=== PATIENT | male | born 1950 | race Caucasian/White ===

== ENCOUNTER 2021-07-06 21:34 | Emergency (ER) | payer MEDICARE, OTHER, SELFPAY ==
[2021-07-06 21:43] VITALS: BP 187/97; PULSE 72; RESP 18; TEMP 36.7; O2SAT 99; BMI 32.1
[2021-07-06 22:13] LABS: Basophils % 0.5 %; Eosinophils # 0.3 10^3/uL (0.0-0.8); Hematocrit 37.1 % (42.0-52.0); Hemoglobin 12.4 g/dL (11.7-16.6); Lymphocytes # 1.9 10^3/uL (0.8-4.8); Lymphocytes % 24.4 %; Mean Corpuscular HGB Conc 33.4 g/dL (30.0-36.0); Mean Corpuscular Volume 86.9 fl (80-94); Mean Platelet Volume 10.9 fL (7.4-10.4); Monocytes # 0.7 10^3/uL (0.2-0.9); Monocytes % 8.5 %; Neutrophils # 4.79 10^3/uL (1.8-7.7); Neutrophils % 62.3 %; Nucleated Red Blood Cells % 0 %; Platelet Count 210 10^3/cmm (130-400); Red Blood Count 4.27 10^6/uL (4.1-5.3); Red Cell Distribution Width 13.2 % (12.1-15.1); White Blood Count 7.7 10^3/uL (4.0-10.0)
[2021-07-06 22:29] LABS: INR 2.26 (0.8-1.2)
[2021-07-06 22:34] LABS: Alanine Aminotransferase 13 U/L (0-41); Albumin Level 4.1 g/dL (3.5-5.2); Alkaline Phosphatase 60 IU/L (40-130); Anion Gap 17.5 (5-19); Aspartate Amino Transferase 13 U/L (0-40); Blood Urea Nitrogen 22 mg/dL (8-23); Calcium 8.9 mg/dL (8.5-10.5); Carbon Dioxide 23 mmol/L (22-29); Chloride 104 mmol/L (98-107); Globulin 2.1 g/dL (1.3-4.6); Glucose 138 mg/dL (65-115); Osmolality Calculated 298 mOsm/kg (285-295); Potassium 3.5 mmol/L (3.5-5.1); Sodium 141 mmol/L (136-145); Total Bilirubin 0.6 mg/dL (0.15-1.2); Total Protein 6.2 g/dL (6.6-8.7)
--- NOTE | 2021-07-06 22:37 | ECG_ITS ---
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 Measurements Intervals [place] Rate: 62 P: 63 IN: 149 QRS: 61 QRSD: 79 T: 68 QT: 396 QTc: 405 Interpretive Statements SINUS RHYTHM Compared to ECG 06/19/2019 20:16:09 No significant changes Electronically Signed On 07-08-2021 0:12:02 DRAG SEINER by Sheri Rico M.D. [email or web address]
--- NOTE | 2021-07-06 22:38 | ED_ITS ---
HPI - GI Bleed General: Chief complaint: GI Bleed Stated complaint: Bleeding out of the bowels Time Seen by Provider: 07/06/21 21:55 Source: patient Mode of arrival: ambulatory Limitations: no limitations History of Present Illness: HPI Narrative: 71-year-old male has a history of A. fib is on Coumadin he also history of diabetes states that roughly an hour or 2 ago he has noticed he is having large amount of bright red blood in his stools he states he had 2 large bloody bowel movements and has just been having oozing blood into his underwear since then. States he had some slight lightheadedness especially standing no history of bleeding in his stools in the past denies any vomiting or diarrhea denies any abdominal pain denies any fevers. Associated symptoms: Denies chills, easy bruising, fever(s), headache(s) or rash Review of Systems Const: Denies: fever(s), chills, body aches or change in appetite Eyes: Denies: blurry vision or eye discomfort ENMT: Denies: throat pain or dental pain Card: Denies: chest pain Resp: Denies: dyspnea GI: Reports: hematochezia : Denies: dysuria Musc: Denies: neck pain or back pain Skin/Breast: Denies: rash Neuro: Denies: headache(s) Psych: Denies: depression Joshua/Lymph: Denies: easy bruising All/Imm: Denies: urticaria PFS ED PFSH: Medical History CAD, multiple vessel Diabetes mellitus History of non-ST elevation myocardial infarction (NSTEMI) History of stroke HTN (hypertension) Hyperlipidemia Paroxysmal atrial fibrillation Family History Brother Heart disease Social History Smoking and tobacco status: former smoker Physical Exam Const: COMMON NORMALS: no acute distress, patient oriented x3 and healthy appearing HENMT: COMMON NORMALS: normocephalic and atraumatic HEAD & SCALP: normocephalic and atraumatic Eye: COMMON NORMALS: Equal, round and reactive pupils present and EOMs intact bilaterally PUPIL: Yes Equal, round and reactive pupils present Neck/C-Spine: COMMON NORMALS: full ROM and supple Chest: COMMONS NORMALS: normal inspection of the chest and normal palpation of entire chest wall Resp: COMMON NORMALS: normal respiratory effort, No retractions, No use of accessory muscles and clear to auscultation bilaterally AUSCULTATION: clear to auscultation bilaterally Cardio: COMMON NORMALS: regular rate, regular rhythm and No murmurs present (Cardio) RATE: regular rate RHYTHM: regular rhythm GI: COMMON NORMALS: Normal to inspection, nondistended, normoactive bowel sounds present, Soft to palpation, non-tender and no masses PALPATION: Yes Soft to palpation OTHER: Bright red blood in patient's underwear with some clots Hemoccult positive Extremity: COMMON NORMALS: normal to inspection and full ROM Neuro: COMMON NORMALS: patient oriented x3, moves all extremities and no focal motor deficits Psych: COMMON NORMALS: mental status grossly normal, Normal thought process present and cooperative THOUGHT PROCESS: Normal thought process present Skin: COMMON NORMALS: no rashes or lesions noted and no wounds GENERAL SKIN EXAM: no rashes or lesions noted Course Vital Signs: Vital signs: Vital Signs Temperature 98.3 F 07/07/21 00:40 Pulse Rate 66 07/07/21 00:40 Respiratory Rate 17 07/07/21 00:40 Blood Pressure 166/80 07/07/21 00:40 Pulse Oximetry 97 07/07/21 00:40 MDM - GI Bleed MDM Narrative: Medical decision making narrative: Patient presents here with lower GI bleeding patient's hemoglobin did drop 2 points in an hour so we will transfuse him 2 units as he is getting near syncopal with standing as well we will give him FFP to reverse his Coumadin patient is not in A. fib here he is in normal sinus rhythm will transfer to [place] due to no bed availability I spoke to physician there and will transfer there. Lab Data: Labs: Lab Results 07/06/21 07/06/21 07/06/21 22:03 22:03 22:03 WBC 7.7 10^3/uL 10^3/ uL (4.0-10.0) RBC 4.27 10^6/uL 10^6 /uL (4.1-5.3) Hgb 12.4 g/dL g/dL (11.7-16.6) Hct 37.1 % L % (42.0-52.0) MCV 86.9 fl fl (80-94) MCH 29.0 pg pg (28.0-34.0) MCHC 33.4 g/dL g/dL (30.0-36.0) RDW 13.2 % % (12.1-15.1) Plt Count 210 10^3/cmm 10^3 /cmm (130-400) MPV 10.9 fL H fL (7.4-10.4) Neut % (Auto) 62.3 % % Lymph % (Auto) 24.4 % % [place] % (Auto) 8.5 % % Eos % (Auto) 4.0 % % Baso % (Auto) 0.5 % % Neut # (Auto) 4.79 10^3/uL 10^3 /uL (1.8-7.7) Lymph # (Auto) 1.9 10^3/uL 10^3/ uL (0.8-4.8) [place] # (Auto) 0.7 10^3/uL 10^3/ uL (0.2-0.9) Eos # (Auto) 0.3 10^3/uL 10^3/ uL (0.0-0.8) Baso # (Auto) 0.0 10^3/uL 10^3/ uL (0.0-0.1) Nucleated RBC % (a uto) 0 % % Nucleated RBCs # 0.0 /100WBC /100W BC PT 25.40 SECONDS H S ECONDS (12.1-14.9) INR 2.26 H (0.8-1.2) Sodium 141 mmol/L mmol/L (136-145) Potassium 3.5 mmol/L mmol/L (3.5-5.1) Chloride 104 mmol/L mmol/L (98-107) Carbon Dioxide 23 mmol/L mmol/L (22-29) Anion Gap 17.5 (5-19) BUN 22 mg/dL mg/dL (8-23) Creatinine 1.3 mg/dL H mg/dL (0.7-1.2) GFR Calculation Not Reportable Glucose 138 mg/dL H mg/dL (65-115) POC Glucose Calculated Osmolal ity 298 mOsm/kg H mOs m/kg (285-295) Calcium 8.9 mg/dL mg/dL (8.5-10.5) Total Bilirubin 0.6 mg/dL mg/dL (0.15-1.2) AST 13 U/L U/L (0-40) ALT 13 U/L U/L (0-41) Alkaline Phosphata se 60 IU/L IU/L (40-130) Total Protein 6.2 g/dL L g/dL (6.6-8.7) Albumin 4.1 g/dL g/dL (3.5-5.2) Globulin 2.1 g/dL g/dL (1.3-4.6) Blood Type Rho(D) Type Antibody Screen Crossmatch 07/06/21 07/06/21 07/06/21 22:03 22:35 23:10 WBC RBC Hgb 10.7 g/dL L g/dL (11.7-16.6) Hct 31.9 % L % (42.0-52.0) MCV MCH MCHC RDW Plt Count MPV Neut % (Auto) Lymph % (Auto) [place] % (Auto) Eos % (Auto) Baso % (Auto) Neut # (Auto) Lymph # (Auto) [place] # (Auto) Eos # (Auto) Baso # (Auto) Nucleated RBC % (a uto) Nucleated RBCs # PT INR Sodium Potassium Chloride Carbon Dioxide Anion Gap BUN Creatinine GFR Calculation Glucose POC Glucose 182 mg/dL H mg/dL (70-110) Calculated Osmolal ity Calcium Total Bilirubin AST ALT Alkaline Phosphata se Total Protein Albumin Globulin Blood Type A Positive Rho(D) Type Positive Antibody Screen Negative Crossmatch See Detail Imaging Data^: CT Abd/Pel: Attestation: I personally reviewed and interpreted this imaging study as follows: Radiologist's impression: [address] [place] [address] CT Scan Report Signed Patient: Mac Pacheco Unit #: [id number] : 1950 Age/Sex: 71 / M ADM Date: 07/06/21 Loc: ER Room/Bed: Attending Dr: Ordering Provider/Ordering MD: Abhijit Morales MD Date of Service: 07/06/21 Procedure(s): CT abdomen pelvis w con* [id number] Accession Number(s): [id number] Report Number: [id number] PROCEDURE INFORMATION: Exam: CT Abdomen And Pelvis With Contrast Exam date and time: 07/06/2021 10:37 PM Age: 71 years old Clinical indication: Other: Rectal bleeding; Additional info: Gi bleed TECHNIQUE: Imaging protocol: Computed tomography of the abdomen and pelvis with contrast. Radiation optimization: All CT scans at this facility use at least one of these dose optimization techniques: automated exposure control; mA and/or kV adjustment per patient size (includes targeted exams where dose is matched to clinical indication); or iterative reconstruction. Contrast material: VISI 320; Contrast volume: 95 ml; Contrast route: INTRAVENOUS (IV); COMPARISON: [place] [facility] [place] [id number] 03/15/2016 9:45 AM RADIATION DOSE METRICS: Total DLP (mGy-cm): 1850.23 FINDINGS: Lungs: 4 mm circumscribed noncalcified anterior left lower lobe pulmonary nodule. Lung bases otherwise clear. Liver: Normal. No mass. Gallbladder and bile ducts: Cholelithiasis. No gallbladder wall thickening. Pancreas: Normal. No ductal dilation. Spleen: Normal. No splenomegaly. Adrenal glands: Normal. No mass. Kidneys and ureters: Several small bilateral simple renal cortical cysts are present. No dedicated imaging follow-up is recommended for this finding. Negative for hydronephrosis. No calcified renal stones. Stomach and bowel: The rectosigmoid colon is moderately distended with fluid. No focal mass or inflammatory bowel wall thickening is identified. Scattered diverticulosis coli is present. Negative for bowel obstruction. Negative for bowel perforation. There is a small area of intraluminal hyperattenuating material in the distal descending left colon on axial image 66, sagittal image 23. This is of uncertain significance without the benefit of available noncontrast imaging. Appendix: Normal appendix. Intraperitoneal space: Unremarkable. No free air. No significant fluid collection. Vasculature: Scattered atherosclerosis. Negative for abdominal aortic aneurysm. No acute vascular occlusion. Lymph nodes: Unremarkable. No enlarged lymph nodes. Urinary bladder: Unremarkable as visualized. Reproductive: Mild severity prostatomegaly. Bones/joints: Unremarkable. No acute fracture. Soft tissues: Unremarkable. CT/CT abdomen pelvis w con* [id number] IMPRESSION: 1. Small area of layering hyperattenuating material in the lumen of the descending left colon. Cannot exclude active gastrointestinal bleeding in this area, although the finding is nonspecific without multiphasic imaging available. 2. No acute inflammatory disease process in abdomen or pelvis seen otherwise. 3. Small left lower lobe pulmonary nodule. 4. For patients at low risk (minimal or absent history of smoking and of other known risk factors), no routine follow-up is indicated. For patients at high risk (history of smoking or of other known risk factors), consider optional CT Chest at 12 months. (Reference: Prudence) COMMENTS: Consistent with the [employer]'s Incidental Findings Committee white paper (J Am Vero Radiol 2018): Any incidental renal lesion less than 1 cm or classified as too small to characterize, or any incidental cystic renal lesion characterized as simple-appearing, is likely benign. No follow-up imaging is recommended for these lesions per consensus recommendations based on imaging criteria. REFERENCES: Prudence Beyer, et al. Guidelines for Management of Incidental Pulmonary Nodules Detected on CT Images: From the Fleischner Society 2017. Radiology. 2017;284(1):228-243. Dictated By: Jose Cruz Reis Signed By: Jose Cruz Reis Signed Date/Time: 07/07/21 0015 EKG Data^: EKG 1: Attestation: I personally reviewed and interpreted this EKG as follows: EKG interpretation date: 07/06/21 EKG interpretation time: 22:38 Interpretation: nsr hr [address] or twave abnormalities qrs 79 qtc 402 Critical Care Time Critical Care Time: Critical Care Time: Yes Total Critical Care Time: 36 Attestation: The high probability of a clinically significant, sudden or life threatening deterioration of the patient's [] system(s) required my full and direct attention, intervention and personal management. The critical care time is as shown. This time is in addition to time spent performing any reported procedures but includes the following: [x] Data and vital sign review and interpretation [x] Patient assessment, examination and intervention [x] Documentation [x] Medication orders and management Discharge Plan Discharge Patient Disposition: Xfer Short-Term Hosp Clinical Impression: Lower gastrointestinal hemorrhage Condition: Stable Referrals: Joo Lugo DO [Primary Care Provider] - Coding Level of Care Code ED Hydrology Technician for Chg Fwd Exam Comprehensive
[2021-07-06 22:43] VITALS: BP 159/115; PULSE 67; RESP 14; O2SAT 99
[2021-07-06 22:43] LABS: Glucose Point of Care 182 mg/dL (70-110)
[2021-07-06] MEDS: iodixanol 320 mg/mL 100mL Btl IV (23:04)
[2021-07-06 23:12] VITALS: BP 168/81; PULSE 62
[2021-07-06 23:13] VITALS: BP 125/87; BP 159/87; PULSE 66; PULSE 72
[2021-07-06 23:14] LABS: Hematocrit 31.9 % (42.0-52.0); Hemoglobin 10.7 g/dL (11.7-16.6)
[2021-07-06 23:18] VITALS: BP 153/79
[2021-07-07] MEDS: phytonadione (ADULT) 10 MG in sodium chloride 0.9% 50 ML 153 MG IV (00:17)
[2021-07-07 00:30] VITALS: BP 160/78; PULSE 62; RESP 13; TEMP 36.8; O2SAT 97
[2021-07-07 00:40] VITALS: BP 166/80; PULSE 66; RESP 17; TEMP 36.8; O2SAT 97
[2021-07-07 01:46] LABS: SARS Covid-2 Antigen Negative (Negative)
[2021-07-07 02:38] VITALS: BP 146/102; PULSE 65; RESP 14; TEMP 37; O2SAT 97
[2021-07-07 02:46] VITALS: BP 171/88; PULSE 66; RESP 18; TEMP 37; O2SAT 97
[2021-07-07 02:54] VITALS: BP 171/88; PULSE 64; RESP 10; TEMP 36.5; O2SAT 97
[2021-07-07 03:03] VITALS: BP 171/88; PULSE 64; RESP 10; TEMP 36.5; O2SAT 95
--- NOTE | 2021-07-07 03:06 | PC.NURSE ---
pt blood tansfusion continued along with ffp's when being transported by ems.
== END 2021-07-07 03:09 | disposition short-term general hospital (02) ==
PROVIDERS: Emergency Provider Emergency Medicine; PCP Family Medicine
DX: K92.2 Gastrointestinal hemorrhage, unspecified (principal); I25.10 Atherosclerotic heart disease of native coronary artery without angina pectoris; E11.9 Type 2 diabetes mellitus without complications; I25.2 Old myocardial infarction; Z86.73 Personal history of transient ischemic attack (TIA), and cerebral infarction without residual deficits; I10 Essential (primary) hypertension; E78.5 Hyperlipidemia, unspecified; Z87.891 Personal history of nicotine dependence; Z20.822 Contact with and (suspected) exposure to COVID-19
CPT/HCPCS: 36416; 36430; 74177; 80053; 82962; 85014; 85018; 85025; 85610; 86850; 86900; 86920; 87426; 93005; 96365; 99285; 99291; J3430; P9016; P9017; Q9967

== ENCOUNTER → 2021-12-28 11:50 | Outpatient (BNVA) | payer MEDICARE, OTHER, SELFPAY | PROVIDERS: PCP Family Medicine; Visit Provider Family Medicine | DX: Z88.8 Allergy status to other drugs, medicaments and biological substances (principal); I48.91 Unspecified atrial fibrillation | CPT/HCPCS: 85610 ==

== ENCOUNTER → 2022-03-01 08:56 | Outpatient (BNVA) | payer MEDICARE, OTHER, SELFPAY | PROVIDERS: PCP Family Medicine; Visit Provider Family Medicine | DX: I10 Essential (primary) hypertension (principal); I25.10 Atherosclerotic heart disease of native coronary artery without angina pectoris; I48.0 Paroxysmal atrial fibrillation | CPT/HCPCS: 85610 ==

== ENCOUNTER → 2022-03-10 14:52 | Outpatient (BNVA) | payer MEDICARE, OTHER, SELFPAY | PROVIDERS: PCP Family Medicine; Visit Provider Internal Medicine | DX: I25.10 Atherosclerotic heart disease of native coronary artery without angina pectoris (principal); I10 Essential (primary) hypertension; I48.0 Paroxysmal atrial fibrillation; Z79.01 Long term (current) use of anticoagulants; Z87.891 Personal history of nicotine dependence | CPT/HCPCS: 99214 ==

== ENCOUNTER → 2022-05-12 08:54 | Outpatient (BNVA) | payer MEDICARE, OTHER, SELFPAY | PROVIDERS: PCP Family Medicine; Visit Provider Family Medicine | DX: I10 Essential (primary) hypertension (principal); I25.10 Atherosclerotic heart disease of native coronary artery without angina pectoris; I48.0 Paroxysmal atrial fibrillation; E11.9 Type 2 diabetes mellitus without complications; Z79.01 Long term (current) use of anticoagulants | CPT/HCPCS: 83036; 85610 ==

== ENCOUNTER 2022-05-15 13:27 | Emergency (ER) | payer MEDICARE, OTHER, SELFPAY ==
[2022-05-15] VITALS (7 sets, daily range): BP systolic 138–175; BP diastolic 75–89; PULSE 69–81; RESP 15–18; TEMP 36.4; O2SAT 96–99; BMI 32.1
--- NOTE | 2022-05-15 14:54 | W.ED.WEAKNES ---
HPI - Weakness General: Chief complaint: Weakness Stated complaint: States he has afib, weakness Time Seen by Provider: 05/15/22 14:47 History of Present Illness: Mr. Pacheco is a 72-year-old gentleman with history of paroxysmal A. fib, CAD, hypertension, diabetes presenting to the emergency department for generalized illness. He reports the past week or week and a half feeling unsteady and generalized malaise in the mornings and notes higher than normal blood pressure associated with rapid heart rate. Denies associated chest pain or shortness of breath. Intensity symptoms is moderate. Course has persisted. No other specific changes in health, exacerbating, or alleviating factors identified. Onset (ago): week(s) Duration: intermittent Location: generalized Severity: moderate Exacerbating factors: morning Review of Systems General: Reports: 10 or more systems reviewed and unremarkable except in HPI and below PFSH ED PFSH: Medical History CAD, multiple vessel Diabetes mellitus History of non-ST elevation myocardial infarction (NSTEMI) History of stroke HTN (hypertension) Hyperlipidemia Paroxysmal atrial fibrillation Family History Brother Heart disease Social History Smoking and tobacco status: former smoker Alcohol intake: never Physical Exam Const: COMMON NORMALS: alert GENERAL APPEARANCE: cooperative and well developed HENMT: COMMON NORMALS: normocephalic and atraumatic HEAD & SCALP: normocephalic and atraumatic Eye: COMMON NORMALS: conjunctivae normal CONJUNCTIVA: Yes conjunctivae normal SCLERA: sclerae normal Neck/C-Spine: COMMON NORMALS: supple GENERAL: Yes trachea midline Resp: COMMON NORMALS: clear to auscultation bilaterally EFFORT & INSPECTION: Yes able to speak in complete sentences AUSCULTATION: clear to auscultation bilaterally Cardio: COMMON NORMALS: regular rate and regular rhythm RATE: regular rate RHYTHM: regular rhythm GI: COMMON NORMALS: Soft to palpation PALPATION: Yes Soft to palpation and No Tenderness to palpation present (GI) Extremity: GENERAL: Yes normal exam except as noted and No edema Neuro: COMMON NORMALS: moves all extremities SENSORIUM/ORIENTATION: Yes alert and No Orientation impaired Psych: COMMON NORMALS: mental status grossly normal and Normal thought process present THOUGHT PROCESS: Normal thought process present Course Vital Signs: Vital signs: Vital Signs Temperature 97.5 F L 05/15/22 13:34 Pulse Rate 76 05/15/22 19:18 Respiratory Rate 16 05/15/22 19:18 Blood Pressure 175/75 05/15/22 19:18 Pulse Oximetry 97 05/15/22 19:18 Oxygen Delivery Me thod 05/15/22 13:34 MDM - Weakness Medical Decision Making 72-year-old gentleman presenting with variable heart rate and uncontrolled blood pressure worse in the mornings. Patient has complex past medical history however no recent changes in medications and reports compliance with medication regimen. He is nontoxic on exam and vitals at this time are satisfactory. EKG notable for sinus rhythm with nonspecific ST-T segment abnormalities. No STEMI. Laboratory studies without evidence of endorgan dysfunction or obvious cause of arrhythmia. Bilirubin is elevated of uncertain etiology. Patient has no right upper quadrant tenderness or biliary colic complaint however in absence of explanation further imaging as noted below. Electrolyte replenishment ordered for optimization of arrhythmia prevention. CT head negative for acute intracranial pathology. Chest x-ray with no lobar consolidation or pneumothorax. Cardiomegaly is present. Abdominal ultrasound with cholelithiasis but no evidence of cholecystitis, common bile duct is normal in diameter. Discussed case with cardiology. Plan to increase patient's morning carvedilol and have close outpatient follow-up. No indication for hospitalization at this time. The results of ED evaluation were discussed with the patient including prescriptions and/or symptomatic cares (if applicable) including appropriate and responsible use, followup plan, and return precautions. The patient verbalized understanding and felt safe for discharge. Medical Records I reviewed the patient's medical records. Lab Data I reviewed the patient's lab results. : 05/15/22 15:07 05/15/22 15:07 Radiology Impressions Chest X-Ray 05/15/22 15:00 IMPRESSION: 1. Cardiomegaly. 2. Right lower lobe atelectasis. Head CT 05/15/22 15:00 IMPRESSION: Negative for intracranial hemorrhage or mass effect. Abdomen Ultrasound 05/15/22 16:56 IMPRESSION: 1. Cholelithiasis. 2. Borderline gallbladder wall thickening. Lack of gallbladder luminal distention makes acute cholecystitis unlikely. Laboratory Results WBC 6.3 10^3/uL (4.0-10.0) 05/15/22 15:07 RBC 4.69 10^6/uL (4.1-5.3) 05/15/22 15:07 Hgb 13.9 g/dL (11.7-16.6) 05/15/22 15:07 Hct 40.7 % (42.0-52.0) L 05/15/22 15:07 MCV 86.8 fl (80-94) 05/15/22 15:07 MCH 29.6 pg (28.0-34.0) 05/15/22 15:07 MCHC 34.2 g/dL (30.0-36.0) 05/15/22 15:07 RDW 13.6 % (12.1-15.1) 05/15/22 15:07 Plt Count 178 10^3/cmm (130-400) 05/15/22 15:07 MPV 11.3 fL (7.4-10.4) H 05/15/22 15:07 Neut % (Auto) 66.3 % 05/15/22 15:07 Lymph % (Auto) 18.5 % 05/15/22 15:07 [place] % (Auto) 11.1 % 05/15/22 15:07 Eos % (Auto) 3.6 % 05/15/22 15:07 Baso % (Auto) 0.3 % 05/15/22 15:07 Neut # (Auto) 4.19 10^3/uL (1.8-7.7) 05/15/22 15:07 Lymph # (Auto) 1.2 10^3/uL (0.8-4.8) 05/15/22 15:07 [place] # (Auto) 0.7 10^3/uL (0.2-0.9) 05/15/22 15:07 Eos # (Auto) 0.2 10^3/uL (0.0-0.8) 05/15/22 15:07 Baso # (Auto) 0.0 10^3/uL (0.0-0.1) 05/15/22 15:07 Nucleated RBC % (auto) 0 % 05/15/22 15:07 Nucleated RBCs # 0.0 /100WBC 05/15/22 15:07 Sodium 138 mmol/L (136-145) 05/15/22 15:07 Potassium 3.5 mmol/L (3.5-5.1) 05/15/22 15:07 Chloride 102 mmol/L (98-107) 05/15/22 15:07 Carbon Dioxide 25 mmol/L (22-29) 05/15/22 15:07 Anion Gap 14.5 (5-19) 05/15/22 15:07 BUN 23 mg/dL (8-23) 05/15/22 15:07 Creatinine 1.1 mg/dL (0.7-1.2) 05/15/22 15:07 GFR Calculation Not Reportable 05/15/22 15:07 Glucose 166 mg/dL (65-115) H 05/15/22 15:07 POC Glucose 161 mg/dL (70-110) H 05/15/22 15:51 Calculated Osmolality 293 mOsm/kg (285-295) 05/15/22 15:07 Calcium 9.8 mg/dL (8.5-10.5) 05/15/22 15:07 Magnesium 1.9 mg/dL (1.7-2.3) 05/15/22 15:07 Total Bilirubin 1.6 mg/dL (0.15-1.2) H 05/15/22 15:07 AST 12 U/L (0-40) 05/15/22 15:07 ALT 13 U/L (0-41) 05/15/22 15:07 Alkaline Phosphatase 63 U/L (40-130) 05/15/22 15:07 Troponin T Baseline 31 ng/L (0-15) H 05/15/22 15:07 Troponin T 120 Minute 28.60 ng/L (0-15) H 05/15/22 17:38 Delta Troponin T -2.40 ABS# (0-10) L 05/15/22 17:38 NT-Pro-B Natriuret Pep 999 pg/mL (0-125) H 05/15/22 15:07 Total Protein 6.5 g/dL (6.6-8.7) L 05/15/22 15:07 Albumin 3.9 g/dL (3.5-5.2) 05/15/22 15:07 Globulin 2.6 g/dL (1.3-4.6) 05/15/22 15:07 Lipase 37 U/L (13-60) 05/15/22 15:07 TSH 1.26 uIU/mL (0.27-4.20) 05/15/22 15:07 Urine Color Yellow (Yellow) 05/15/22 18:24 Urine Appearance Clear (CLEAR) 05/15/22 18:24 Urine pH 5 (5-7) 05/15/22 18:24 Ur Specific [place] 1.020 (1.005-1.030) 05/15/22 18:24 Urine Protein Neg (Negative) 05/15/22 18:24 Urine Glucose (UA) Norm (Normal) 05/15/22 18:24 Urine Ketones 1+ (Negative) H 05/15/22 18:24 Urine Blood Neg (Negative) 05/15/22 18:24 Urine Nitrate Negative (Negative) 05/15/22 18:24 Urine Bilirubin Neg (Negative) 05/15/22 18:24 Urine Urobilinogen Neg mg/dL (Negative) 05/15/22 18:24 Ur Leukocyte Esterase Negative (Negative) 05/15/22 18:24 Discharge Plan Discharge Patient Disposition: Home Clinical Impression: Malaise, HTN (hypertension), Paroxysmal atrial fibrillation Condition: Stable Prescriptions: New carvedilol 6.25 mg tablet 6.25 mg PO QAM Qty: 30 0RF Rx Instructions: must administer with a meal/food No Action metformin 500 mg tablet 1,000 mg PO BID warfarin 1 mg tablet 2 mg PO DAILY diltiazem HCl [Cardizem] 60 mg tablet 60 mg PO DAILY PRN (Reason: Afib) Qty: 90 3RF atorvastatin 20 mg tablet 20 mg PO DAILY senna 8.6 mg capsule 8.6 mg PO DAILY PRN (Reason: Constipation) docusate sodium 100 mg capsule 100 mg PO DAILY PRN (Reason: Constipation) [id number]-[id number]-Zn-Cu 1 tab PO DAILY triamcinolone acetonide 0.5 % cream 1 applic topical BID Qty: 15 3RF amlodipine 10 mg tablet 10 mg PO DAILY atenolol-chlorthalidone 50-25 mg tablet 1 tab PO DAILY carvedilol 12.5 mg tablet 12.5 mg PO BID Qty: 60 6RF Rx Instructions: must administer with a meal/food losartan 100 mg tablet 150 mg PO DIRECTED Qty: 135 3RF Rx Instructions: Take 150mg (1 tab) Am and 75mg (0.5 tab) in PM nateglinide 120 mg tablet 120 mg PO TID Qty: 270 3RF Rx Instructions: give before meal(s) hydrochlorothiazide 12.5 mg tablet 12.5 mg PO BID Discharge Orders: Discharge ED (Routine); Ordered 05/15/22 Ordered By: Nahum Lundy Referrals: Joo Lugo, DO [Primary Care Provider] - Discharge Diet: Usual diet Discharge Activity: Increase activity as tolerated Activity Restrictions/Additional Instructions: Thank you for visiting the emergency department. You were seen and evaluated for generalized symptoms associated with high blood pressure and heart rate in the mornings. The exact cause of the symptoms is unclear though does not appear to need hospitalization at this time. 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 Please change your carvedilol dose from 12.5 mg twice daily to 18.25 mg in the morning total and 12.5 mg in the evening. I will write you a prescription for additional 6.25 mg tablets of carvedilol if this is easier than splitting pills. Dosage would be one 12.5 mg tablet and one 6.25 mg tablet in the morning and one 12.5 mg tablet in the evening. Return to the emergency department for anything that you are concerned about and feel needs emergency department evaluation. Coding Level of Care Code ED Chemical Process Analyst for Samantha Chu Exam Comprehensive
--- NOTE | 2022-05-15 15:00 | XRR_ITS ---
PROCEDURE INFORMATION: Exam: XR Chest Exam date and time: 05/15/2022 3:15 PM Age: 72 years old Clinical indication: Other: Weakness; Additional info: Afib TECHNIQUE: Imaging protocol: Radiologic exam of the chest. Views: 1 view. COMPARISON: CR XR chest 1V [id number] 08/08/2017 12:57 PM FINDINGS: Lungs: Right lower lobe atelectasis. Pleural spaces: Unremarkable. No pleural effusion. No pneumothorax. Heart/Mediastinum: Cardiomegaly. Bones/joints: Unremarkable. XR/XR chest 1V portable [id number] IMPRESSION: 1. Cardiomegaly. 2. Right lower lobe atelectasis.
--- NOTE | 2022-05-15 15:00 | CTR_ITS ---
PROCEDURE INFORMATION: Exam: CT Head Without Contrast Exam date and time: 05/15/2022 3:18 PM Age: 72 years old Clinical indication: Altered mental status/memory loss; Additional info: HX stroke, gait difficulty TECHNIQUE: Imaging protocol: Computed tomography of the head without contrast. Radiation optimization: All CT scans at this facility use at least one of these dose optimization techniques: automated exposure control; mA and/or kV adjustment per patient size (includes targeted exams where dose is matched to clinical indication); or iterative reconstruction. COMPARISON: CT Head wo IV contrast* [id number] 06/19/2019 8:05 PM RADIATION DOSE METRICS: Total DLP (mGy-cm): 1126.09 FINDINGS: Brain: Mild diffuse white matter disease likely reflecting chronic microvascular ischemic changes. Cerebral ventricles: No ventriculomegaly. Paranasal sinuses: Paranasal sinus opacifications. Mastoid air cells: Visualized mastoid air cells are well aerated. Bones/joints: Unremarkable. No acute fracture. Soft tissues: Unremarkable. CT/CT head wo con* [id number] IMPRESSION: Negative for intracranial hemorrhage or mass effect.
--- NOTE | 2022-05-15 15:01 | ECG_ITS ---
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 Measurements Intervals [place] Rate: 74 P: 55 [place]: 149 QRS: 69 QRSD: 82 T: 66 QT: 375 QTc: 417 Interpretive Statements SINUS RHYTHM NONSPECIFIC ST & T-WAVE ABNORMALITY Compared to ECG 07/06/2021 22:38:17 T-wave abnormality now present Electronically Signed On 05-17-2022 23:02:08 CDT by Tamiko Gonzalez M.D. [id number]
[2022-05-15 15:19] LABS: Basophils % 0.3 %; Eosinophils # 0.2 10^3/uL (0.0-0.8); Eosinophils % 3.6 %; Hematocrit 40.7 % (42.0-52.0); Hemoglobin 13.9 g/dL (11.7-16.6); Lymphocytes # 1.2 10^3/uL (0.8-4.8); Lymphocytes % 18.5 %; Mean Corpuscular HGB Conc 34.2 g/dL (30.0-36.0); Mean Corpuscular Hemoglobin 29.6 pg (28.0-34.0); Mean Corpuscular Volume 86.8 fl (80-94); Mean Platelet Volume 11.3 fL (7.4-10.4); Monocytes # 0.7 10^3/uL (0.2-0.9); Monocytes % 11.1 %; Neutrophils # 4.19 10^3/uL (1.8-7.7); Neutrophils % 66.3 %; Nucleated Red Blood Cells % 0 %; Platelet Count 178 10^3/cmm (130-400); Red Blood Count 4.69 10^6/uL (4.1-5.3); Red Cell Distribution Width 13.6 % (12.1-15.1); White Blood Count 6.3 10^3/uL (4.0-10.0)
[2022-05-15 15:38] LABS: Troponin(5th) Baseline 31 ng/L (0-15)
[2022-05-15 15:57] LABS: Glucose Point of Care 161 mg/dL (70-110)
[2022-05-15 16:54] LABS: Alanine Aminotransferase 13 U/L (0-41); Albumin Level 3.9 g/dL (3.5-5.2); Alkaline Phosphatase 63 U/L (40-130); Anion Gap 14.5 (5-19); Aspartate Amino Transferase 12 U/L (0-40); Blood Urea Nitrogen 23 mg/dL (8-23); Calcium 9.8 mg/dL (8.5-10.5); Carbon Dioxide 25 mmol/L (22-29); Chloride 102 mmol/L (98-107); Globulin 2.6 g/dL (1.3-4.6); Glucose 166 mg/dL (65-115); Magnesium 1.9 mg/dL (1.7-2.3); NT Pro B Type Natriuretic Pept 999 pg/mL (0-125); Osmolality Calculated 293 mOsm/kg (285-295); Potassium 3.5 mmol/L (3.5-5.1); Sodium 138 mmol/L (136-145); Thyroid Stimulating Hormone 1.26 uIU/mL (0.27-4.20); Total Bilirubin 1.6 mg/dL (0.15-1.2); Total Protein 6.5 g/dL (6.6-8.7)
--- NOTE | 2022-05-15 16:56 | USR_ITS ---
PROCEDURE INFORMATION: Exam: US Abdomen, Limited; Right Upper Quadrant Exam date and time: 05/15/2022 5:14 PM Age: 72 years old Clinical indication: Other: PT here for extreme weakness; Additional info: Ruq/biliary, elevated t bili TECHNIQUE: Imaging protocol: Real time ultrasound of the abdomen with image documentation. Limited exam focused on the right upper quadrant. COMPARISON: CT abdomen pelvis w con* [id number] 07/06/2021 10:57 PM FINDINGS: Liver: The liver is unremarkable. The portal vein is patent. Gallbladder: The gallbladder is nondistended. There is echogenic shadowing material in the gallbladder neck consistent small calcified stones visible on prior CT. The gallbladder wall is mildly diffusely thickened. There is no pericholecystic fluid. Information regarding sonographic Oneill sign was not provided. Biliary ducts: The common bile duct is nondilated measuring 5 mm Pancreas: The visible portion of the pancreas is unremarkable. Right kidney: The right kidney is normal. Aorta: The aorta is unremarkable. Inferior vena cava: The IVC is unremarkable. US/US abdomen limited [id number] IMPRESSION: 1. Cholelithiasis. 2. Borderline gallbladder wall thickening. Lack of gallbladder luminal distention makes acute cholecystitis unlikely.
--- NOTE | 2022-05-15 17:01 | ECG_ITS ---
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 Measurements Intervals [place] Rate: 79 P: 37 [place]: 152 QRS: 49 QRSD: 84 T: 92 QT: 359 QTc: 413 Interpretive Statements SINUS RHYTHM POSSIBLE LEFT ATRIAL ENLARGEMENT [-0.1mV P-WAVE IN V1/V2] MODERATE ST DEPRESSION [0.05+ mV ST DEPRESSION] Compared to ECG 07/06/2021 22:38:17 ST (T wave) deviation now present Electronically Signed On 05-17-2022 23:15:12 CDT by Tamiko Gonzalez M.D. [email or web address]).[facility].[employer]/store/[id number]
[2022-05-15] MEDS: potassium chloride ER 20 mEq Tablet 40 MEQ PO (17:07)
[2022-05-15 18:06] LABS: Lipase 37 U/L (13-60)
[2022-05-15 18:32] LABS: Add Urine Microscopic? NO; Charge for UA Resulting for Rev
[2022-05-15 18:35] LABS: Bilirubin Urine Neg (Negative); Blood Urine Neg (Negative); Glucose Urine UA Norm (Normal); Ketones Urine 1+ (Negative); Leukocyte Esterase Urine Negative (Negative); Nitrate Urine Negative (Negative); Protein Urine Neg (Negative); Urine Appearance Clear (CLEAR); Urine Color Yellow (Yellow); Urobilinogen Urine Neg (Negative); pH Urine 5 (5-7)
--- NOTE | 2022-05-15 19:09 | PC.NURSE ---
report given to CINDI Delarosa to assume care
[2022-05-15] MEDS: carvedilol 12.5 mg Tablet PO (19:10)
--- NOTE | 2022-05-17 15:36 | DCPLANNER ---
Addendum entered by Lisbet Marcos 05/18/22 07:43: risk control manager received the following message from [facility] regarding followup appointment: Patient said he will just stick with following up with his primary doctor Original Note: risk control manager had message to schedule a follow up appointment for patient with cardiology. risk control manager sent patients information to the front office staff at [facility]. Patients information will be printed and reviewed. Clinic will call patient with appointment information.
== END 2022-05-15 19:13 | disposition home or self-care (01) ==
PROVIDERS: Emergency Provider Emergency Medicine; PCP Family Medicine
DX: I48.0 Paroxysmal atrial fibrillation (principal); I10 Essential (primary) hypertension; R53.81 Other malaise; I51.7 Cardiomegaly; E11.9 Type 2 diabetes mellitus without complications; Z79.84 Long term (current) use of oral hypoglycemic drugs; Z79.01 Long term (current) use of anticoagulants
CPT/HCPCS: 36415; 36416; 70450; 71045; 76705; 80053; 81003; 82962; 83690; 83735; 83880; 84443; 84484; 85025; 93005; 96365; 99285; J3475

== ENCOUNTER 2022-06-12 09:54 | Inpatient (IN) | payer MEDICARE, OTHER, SELFPAY ==
[2022-06-12] VITALS (51 sets, daily range): BP systolic 96–170; BP diastolic 79–126; PULSE 100–166; RESP 13–38; TEMP 36.4–36.5; O2SAT 89–97; BMI 31.9; BMI 32.5
--- NOTE | 2022-06-12 10:20 | ECG_ITS ---
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 Measurements Intervals [place] Rate: 153 P: 0 ME: 0 QRS: 98 QRSD: 88 T: -41 QT: 276 QTc: 441 Interpretive Statements ATRIAL FIBRILLATION WITH RAPID VENTRICULAR RESPONSE BORDERLINE RIGHT AXIS DEVIATION [QRS AXIS > 90] NONSPECIFIC ST & T-WAVE ABNORMALITY Compared to ECG 05/15/2022 15:12:56 Sinus rhythm no longer present T-wave abnormality still present Electronically Signed On 06-14-2022 18:23:28 SINTERING PLANT SUPERVISOR by Kavon Gao M.D. [email or web address]/store/[id number] f
--- NOTE | 2022-06-12 10:21 | XRR_ITS ---
PROCEDURE INFORMATION: Exam: XR Chest Exam date and time: 06/12/2022 11:58 AM Age: 72 years old Clinical indication: Dyspnea; Additional info: Dyspnea; Afib TECHNIQUE: Imaging protocol: Radiologic exam of the chest. Views: 1 view. Total images: 1 COMPARISON: CR (CHEST, ) 05/15/2022 3:15 PM FINDINGS: Lungs: Nonspecific bibasilar opacities, favoring atelectasis or pneumonia. Pleural spaces: There is blunting of the right costophrenic angle, likely indicating a small pleural effusion. Heart/Mediastinum: Mild cardiomegaly stable. Bones/joints: Osseous structures are unchanged from the prior exam. XR/XR chest 1V portable [id number] IMPRESSION: 1. Nonspecific bibasilar opacities, favoring atelectasis or pneumonia. 2. There is blunting of the right costophrenic angle, likely indicating a small pleural effusion. 3. Mild cardiomegaly stable.
--- NOTE | 2022-06-12 10:26 | ED_ITS ---
HPI - Weakness General: Chief complaint: Weakness Stated complaint: Shortness of Breath Time Seen by Provider: 06/12/22 10:06 Source: patient and family Mode of arrival: ambulatory Limitations: no limitations History of Present Illness: See nursing assessment. Patient with complaints of generalized fatigue and generalized weakness for the past 3 days. He states this is worse when he stands up. States he has had some tachycardia and mild shortness of breath with activity. He denies any fever. States he does have a history of atrial fibrillation, hypertension, coronary disease, type 2 diabetes mellitus, recent diagnosis of left lower lobe pneumonia in which she was started on doxycycline 9 days ago. He states he does take atenolol, diltiazem, Coumadin, metformin. Denies any pain anywhere. Patient states he did take his usual medications this morning. Past surgical history includes coronary stent in 2016. Associated symptoms: Denies chest pain, chills, diaphoresis, fever(s), headache(s), nausea or vomiting Review of Systems Const: Reports: fatigue and malaise; Denies: fever(s), chills, body aches or diaphoresis Eyes: Denies: change in vision ENMT: Denies: throat pain or nasal discharge Card: Reports: palpitations, dyspnea on exertion and other (Tachycardia); Denies: chest pain Resp: Reports: dyspnea; Denies: non-productive cough or wheezing GI: Denies: abdominal pain, nausea or vomiting : Reports: urinary frequency and other (Denies dysuria); Denies: flank pain Musc: Denies: neck pain, back pain, extremity pain or extremity swelling Skin/Breast: Denies: rash, pruritus or erythema Neuro: Reports: other (Patient states he does have chronic LUE/LLE weakness from previous CVA); Denies: headache(s) or numbness in extremities Psych: Denies: anxiety Joshua/Lymph: Denies: enlarged lymph nodes PFSH ED PFSH: Medical History CAD, multiple vessel Diabetes mellitus History of non-ST elevation myocardial infarction (NSTEMI) History of stroke HTN (hypertension) Hyperlipidemia Paroxysmal atrial fibrillation Family History Brother Heart disease Social History Smoking and tobacco status: former smoker Alcohol intake: never Physical Exam Const: COMMON NORMALS: no acute distress, patient oriented x3, alert and well nourished GENERAL APPEARANCE: cooperative HENMT: COMMON NORMALS: normocephalic and atraumatic HEAD & SCALP: normocephalic and atraumatic Eye: COMMON NORMALS: EOMs intact bilaterally Neck/C-Spine: COMMON NORMALS: full ROM, no lymphadenopathy, supple and no JVD Lymph: LYMPHATIC: no lymphadenopathy noted Chest: COMMONS NORMALS: normal inspection of the chest and normal palpation of entire chest wall Resp: COMMON NORMALS: normal respiratory effort, No retractions, No use of accessory muscles and clear to auscultation bilaterally AUSCULTATION: clear to auscultation bilaterally Cardio: COMMON NORMALS: no JVD, S1 normal heart sound present, S2 normal heart sound present and Peripheral pulses 2+ throughout RATE: tachycardic RHYTHM: abnormal rhythm HEART SOUNDS: S1 normal heart sound present and S2 normal heart sound present PERIPHERAL PULSES: Peripheral pulses 2+ throughout OTHER: Irregular irregular rhythm with tachycardia GI: COMMON NORMALS: Normal to inspection, nondistended, normoactive bowel sounds present, Soft to palpation and non-tender PALPATION: Yes Soft to palpation : COMMON NORMALS: Yes no CVA tenderness BLADDER/KIDNEY EXAM: Yes no CVA tenderness Back/Pelvis: COMMON NORMALS: no CVA tenderness Extremity: COMMON NORMALS: normal to inspection and full ROM Neuro: COMMON NORMALS: patient oriented x3, CN's II-XII intact bilaterally, moves all extremities, no focal motor deficits and no sensory deficits noted SENSORIUM/ORIENTATION: Yes alert OTHER: Patient reports a history of minimal left upper and lower extremity weakness from previous CVA. No acute changes. Strength 5 out of 5 at this time. Psych: COMMON NORMALS: mental status grossly normal, Normal thought process present, cooperative, normal affect and speech normal SPEECH: Yes normal spe ech THOUGHT PROCESS: Normal thought process present Skin: COMMON NORMALS: no rashes or lesions noted GENERAL SKIN EXAM: no rashes or lesions noted Course Vital Signs: Vital signs: Vital Signs Temperature 97.7 F 06/12/22 10:01 Pulse Rate 125 H 06/12/22 10:01 Respiratory Rate 16 06/12/22 10:01 Blood Pressure 143/111 06/12/22 10:01 Pulse Oximetry 97 06/12/22 10:01 Oxygen Delivery Me thod 06/12/22 10:01 MDM - Weakness Medical Decision Making Atrial fibrillation chronic with rapid ventricular rate, hypertensive urgency. Blood pressure at time of exam 170/107. 1130: Patient reassessed. Heart rate still approximately 145 and rapid A. fib. Patient still hypertensive 170/100. Will give Lasix due to mild pulmonary edema. Will give Rocephin for bilateral lower lobe infiltrates and mildly elevated white count with left shift. We will have nurse increase Cardizem rate to 50 mg an hour and give an additional 5 mg Cardizem bolus. 1230: Consulted cardiology Dr. Gao. He requested that I give patient 150 mg of amiodarone bolus and then start amiodarone drip. We will continue the diltiazem. We will have hospitalist admit the patient. We will consult cardiology. Patient does state that he is always in atrial fibrillation. He is therapeutic on his Coumadin. 1320: Discussed with hospitalist Dr. Pina. Admit to step down unit. discontinue cardizem drip Lab Data 06/12/22 10:52 06/12/22 10:52 Radiology Impressions Chest X-Ray 06/12/22 10:21 IMPRESSION: 1. Nonspecific bibasilar opacities, favoring atelectasis or pneumonia. 2. There is blunting of the right costophrenic angle, likely indicating a small pleural effusion. 3. Mild cardiomegaly stable. Laboratory Results WBC 11.2 10^3/uL (4.0-10.0) H 06/12/22 10:52 RBC 4.69 10^6/uL (4.1-5.3) 06/12/22 10:52 Hgb 13.6 g/dL (11.7-16.6) 06/12/22 10:52 Hct 40.8 % (42.0-52.0) L 06/12/22 10:52 MCV 87.0 fl (80-94) 06/12/22 10:52 MCH 29.0 pg (28.0-34.0) 06/12/22 10:52 MCHC 33.3 g/dL (30.0-36.0) 06/12/22 10:52 RDW 13.5 % (12.1-15.1) 06/12/22 10:52 Plt Count 217 10^3/cmm (130-400) 06/12/22 10:52 MPV 11.5 fL (7.4-10.4) H 06/12/22 10:52 Neut % (Auto) 82.7 % 06/12/22 10:52 Lymph % (Auto) 9.3 % 06/12/22 10:52 [place] % (Auto) 6.9 % 06/12/22 10:52 Eos % (Auto) 0.4 % 06/12/22 10:52 Baso % (Auto) 0.3 % 06/12/22 10:52 Neut # (Auto) 9.30 10^3/uL (1.8-7.7) H 06/12/22 10:52 Lymph # (Auto) 1.0 10^3/uL (0.8-4.8) 06/12/22 10:52 [facility] # (Auto) 0.8 10^3/uL (0.2-0.9) 06/12/22 10:52 Eos # (Auto) 0.0 10^3/uL (0.0-0.8) 06/12/22 10:52 Baso # (Auto) 0.0 10^3/uL (0.0-0.1) 06/12/22 10:52 Nucleated RBC % (auto) 0 % 06/12/22 10:52 Nucleated RBCs # 0.0 /100WBC 06/12/22 10:52 PT 21.70 SECONDS (12.1-14.9) H 06/12/22 10:52 INR 1.85 (0.8-1.2) H 06/12/22 10:52 Sodium 134 mmol/L (136-145) L 06/12/22 10:52 Potassium 4.5 mmol/L (3.5-5.1) 06/12/22 10:52 Chloride 98 mmol/L (98-107) 06/12/22 10:52 Carbon Dioxide 23 mmol/L (22-29) 06/12/22 10:52 Anion Gap 17.5 (5-19) 06/12/22 10:52 BUN 23 mg/dL (8-23) 06/12/22 10:52 Creatinine 0.8 mg/dL (0.7-1.2) 06/12/22 10:52 GFR Calculation Not Reportable 06/12/22 10:52 Glucose 338 mg/dL (65-115) H 06/12/22 10:52 Calculated Osmolality 295 mOsm/kg (285-295) 06/12/22 10:52 Lactate 1.8 mmol/L (0.5-2.2) 06/12/22 10:52 Calcium 9.7 mg/dL (8.5-10.5) 06/12/22 10:52 Magnesium 1.7 mg/dL (1.7-2.3) 06/12/22 10:52 Total Bilirubin 2.2 mg/dL (0.15-1.2) H 06/12/22 10:52 AST 45 U/L (0-40) H 06/12/22 10:52 ALT 86 U/L (0-41) H 06/12/22 10:52 Alkaline Phosphatase 78 U/L (40-130) 06/12/22 10:52 Troponin T Baseline 29 ng/L (0-15) H 06/12/22 10:52 Troponin T 120 Minute 26.03 ng/L (0-15) H 06/12/22 12:51 Delta Troponin T -2.97 ABS# (0-10) L 06/12/22 12:51 NT-Pro-B Natriuret Pep 2642 pg/mL (0-125) H 06/12/22 10:52 Total Protein 6.1 g/dL (6.6-8.7) L 06/12/22 10:52 Albumin 3.9 g/dL (3.5-5.2) 06/12/22 10:52 Globulin 2.2 g/dL (1.3-4.6) 06/12/22 10:52 Urine Color Yellow (Yellow) 06/12/22 11:00 Urine Appearance Clear (CLEAR) 06/12/22 11:00 Urine pH 5 (5-7) 06/12/22 11:00 Ur Specific [place] 1.010 (1.005-1.030) 06/12/22 11:00 Urine Protein Trace (Negative) 06/12/22 11:00 Urine Glucose (UA) 4+ (Normal) H 06/12/22 11:00 Urine Ketones 1+ (Negative) H 06/12/22 11:00 Urine Blood Neg (Negative) 06/12/22 11:00 Urine Nitrate Negative (Negative) 06/12/22 11:00 Urine Bilirubin Neg (Negative) 06/12/22 11:00 Urine Urobilinogen Norm mg/dL (Negative) 06/12/22 11:00 Ur Leukocyte Esterase Negative (Negative) 06/12/22 11:00 Urine RBC 0-4 /hpf (0-2) H 06/12/22 11:00 Urine WBC 0-4 /hpf (0-5) H 06/12/22 11:00 Ur Squamous Epith Cells 0-4 /hpf (0-5) H 06/12/22 11:00 Amorphous Sediment Not Reportable 06/12/22 11:00 Urine Bacteria Trace /hpf (NONE) 06/12/22 11:00 Influenza Type A Ag negative (Negative) 06/12/22 10:52 Influenza Type B Ag negative (Negative) 06/12/22 10:52 SARS-CoV-2 Ag (Rapid) negative (Negative) 06/12/22 10:52 Imaging Data CXR: My impression: Bilateral lower lobe infiltrates versus atelectasis. Mild pulmonary edema bilaterally. No effusions. EKG Data EKG 1: I personally reviewed and interpreted this EKG as follows: EKG interpretation date: 06/12/22 EKG interpretation time: 10:17 Prior EKG tracings: not available for review Interpretation: EKG shows atrial fibrillation with rapid ventricular response with heart rate of 153. Nonspecific ST-T changes throughout. Normal axis. Mild LVH. EKG 2: I personally reviewed and interpreted this EKG as follows: EKG interpretation date: 06/12/22 EKG interpretation time: 12:26 Prior EKG tracings: available for review (Unchanged from previous) Interpretation: Impression atrial fibrillation with rapid ventricular rate. Unchanged from previous EKG. Heart rate 147. Right axis. Nonspecific ST-T changes throughout. Mild LVH. Critical Care Time Critical Care Time: Critical Care Time: Yes Total Critical Care Time: 65 Attestation: See orders, IV Cardizem, IV amiodarone, IV Lasix Discharge Plan Discharge Patient Disposition: Admitted As Inpatient Clinical Impression: Atrial fibrillation with rapid ventricular response, Hypertensive urgency, Acute congestive heart failure with left ventricular diastolic dysfunction, Type 2 diabetes mellitus Condition: Stable Coding Level of Care Code ED Talent Recruiter for Chg Fwd History Comprehensive Exam Comprehensive Medical Decision Making High Complexity
--- NOTE | 2022-06-12 10:43 | PC.NURSE ---
PT PLACED ON CONTINUOUS SPO2, NIBP, AND CM.
[2022-06-12] MEDS: dilTIAZem 5 mg/mL SDV 5 mL 15 MG IVP (10:47)
--- NOTE | 2022-06-12 10:58 | PC.NURSE ---
NOTIFIED DR. MCALLISTER OF HR OF 152BPM AFTER DILTIZEM 15MG. VERBALIZED UNDERSTANDING NO FURTHER ORDERS.
[2022-06-12 11:02] LABS: Basophils % 0.3 %; Eosinophils % 0.4 %; Hematocrit 40.8 % (42.0-52.0); Hemoglobin 13.6 g/dL (11.7-16.6); Lymphocytes % 9.3 %; Mean Corpuscular HGB Conc 33.3 g/dL (30.0-36.0); Mean Platelet Volume 11.5 fL (7.4-10.4); Monocytes # 0.8 10^3/uL (0.2-0.9); Monocytes % 6.9 %; Neutrophils % 82.7 %; Nucleated Red Blood Cells % 0 %; Platelet Count 217 10^3/cmm (130-400); Red Blood Count 4.69 10^6/uL (4.1-5.3); Red Cell Distribution Width 13.5 % (12.1-15.1); White Blood Count 11.2 10^3/uL (4.0-10.0)
[2022-06-12] MEDS: dilTIAZem 100 MG in sodium chloride 0.9% (add-van) 100 ML IV (11:15)
[2022-06-12 11:19] LABS: INR 1.85 (0.8-1.2); SARS Covid-2 Antigen negative (Negative)
[2022-06-12 11:23] LABS: Influenza A by IFA negative (Negative); Influenza B by IFA negative (Negative)
[2022-06-12 11:30] LABS: Add Urine Culture? No; Bacteria Urine TRACE /hpf; Bilirubin Urine Neg (Negative); Blood Urine Neg (Negative); Glucose Urine UA 4+ (Normal); Ketones Urine 1+ (Negative); Leukocyte Esterase Urine Negative (Negative); Nitrate Urine Negative (Negative); Protein Urine Trace (Negative); RBC Urine 0-4 /hpf (0-2); Squamous Epithelial Cell Urine 0-4 /hpf (0-5); Urine Appearance Clear (CLEAR); Urine Color Yellow (Yellow); Urobilinogen Urine Norm (Negative); WBC Urine 0-4 /hpf (0-5); pH Urine 5 (5-7)
[2022-06-12] MEDS: dilTIAZem 5 mg/mL SDV 5 mL IVP (11:38)
[2022-06-12 11:42] LABS: Lactate (Lactic Acid level) 1.8 mmol/L (0.5-2.2)
[2022-06-12 11:48] LABS: Troponin(5th) Baseline 29 ng/L (0-15)
[2022-06-12 11:50] LABS: Alanine Aminotransferase 86 U/L (0-41); Albumin Level 3.9 g/dL (3.5-5.2); Alkaline Phosphatase 78 U/L (40-130); Aspartate Amino Transferase 45 U/L (0-40); Blood Urea Nitrogen 23 mg/dL (8-23); Calcium 9.7 mg/dL (8.5-10.5); Carbon Dioxide 23 mmol/L (22-29); Chloride 98 mmol/L (98-107); Globulin 2.2 g/dL (1.3-4.6); Glucose 338 mg/dL (65-115); Magnesium 1.7 mg/dL (1.7-2.3); NT Pro B Type Natriuretic Pept 2642 pg/mL (0-125); Osmolality Calculated 295 mOsm/kg (285-295); Sodium 134 mmol/L (136-145); Total Bilirubin 2.2 mg/dL (0.15-1.2); Total Protein 6.1 g/dL (6.6-8.7)
[2022-06-12 11:52] LABS: Anion Gap 17.5 (5-19); Potassium 4.5 mmol/L (3.5-5.1)
--- NOTE | 2022-06-12 11:57 | PC.NURSE ---
notified dr. ragsdale that diltiazem 5mg ivp bolus adm and drip increased to 15mg/hr and hr is 156bpm. he verbalized understanding no further orders.
[2022-06-12] MEDS: FUROsemide 10 mg/mL SDV 2mL 20 MG IVP (12:02)
[2022-06-12] MEDS: cefTRIAXone 2,000 MG in sodium chloride 0.9% (plus) 50 ML 100 MG IV (12:06)
--- NOTE | 2022-06-12 12:23 | ECG_ITS ---
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 Measurements Intervals [place] Rate: 147 P: 0 [place]: 0 QRS: 97 QRSD: 87 T: 0 QT: 282 QTc: 442 Interpretive Statements ATRIAL FIBRILLATION WITH RAPID VENTRICULAR RESPONSE BORDERLINE RIGHT AXIS DEVIATION [QRS AXIS > 90] NONSPECIFIC ST & T-WAVE ABNORMALITY Compared to ECG 06/12/2022 10:16:46 No significant changes Electronically Signed On 06-14-2022 18:30:43 AERIAL GUNNER by Kavon Gao M.D. [email or web address]/store/[id number]
[2022-06-12] MEDS: amiodarone 50 mg/mL SDV 3 mL 150 MG IVP (12:51)
[2022-06-12] MEDS: magnesium oxide 400 mg tablet 200 MG PO (12:54)
[2022-06-12 13:13] LABS: Troponin 5 2HR 26.03 ng/L (0-15)
[2022-06-12 13:14] LABS: Troponin 5 2HR Delta -2.97 ABS# (0-10)
--- NOTE | 2022-06-12 13:33 | P.HP_ITS ---
Providers/Chief Complaint Primary Care Provider: Joo Lugo DO Chief Complaint: Shortness of Breath History of Present Illness Mac Pacheco is a 72 year old male who has been having shortness of breath and generalized weakness for quite some time. He was seen by his PCP and was recommended antibiotics for possible pneumonia because of worsening of symptoms status to come to the ER for further evaluation. In the ER he was diagnosed with A. fib RVR he does have history of chronic A. fib, takes Coumadin, he was started on Cardizem drip which did not improve his heart rate hence decision was made to switch him to amiodarone. He is denying chest pain, recent falls, GI bleed. Review of Systems Const: Denies: fever(s) Eyes: Denies: change in vision ENMT: Denies: throat pain Card: Denies: chest pain Resp: Denies: dyspnea GI: Denies: abdominal pain : Denies: flank pain Musc: Denies: neck pain Skin/Breast: Denies: rash Neuro: Denies: headache(s) Psych: Denies: anxiety Endo: Denies: polyuria Joshua/Lymph: Denies: easy bruising All/Imm: Denies: urticaria Medications/Allergies Home Medications Medication Instructions Recorded Confirmed Last Taken Type atorvastatin 20 mg tablet 20 mg PO DAILY 08/27/19 06/12/22 05/14/22 History docusate sodium 100 mg capsule 100 mg PO DAILY PRN Constipation 08/27/19 06/12/22 Unknown History metformin 500 mg tablet 1,000 mg PO BID 08/27/19 06/12/22 05/15/22 History bng-Xc-fgk-zviaa-gbia-hv-Zn-Cu 1 tab PO DAILY 08/27/19 06/12/22 05/15/22 History [Prostate Control] sennosides 8.6 mg capsule (senna) 8.6 mg PO DAILY PRN Constipation 08/27/19 06/12/22 Unknown History diltiazem HCl 60 mg tablet 60 mg PO DAILY PRN Afib #90 tabs 03/27/21 06/12/22 05/14/22 Rx (Cardizem) carvedilol 12.5 mg tablet 12.5 mg PO BID #60 tabs 11/26/21 06/12/22 05/15/22 Rx losartan 100 mg tablet 150 mg PO DIRECTED #135 tabs 11/26/21 06/12/22 Rx nateglinide 120 mg tablet 120 mg PO TID #270 tabs 05/10/22 06/12/22 05/15/22 Rx hydrochlorothiazide 12.5 mg tablet 12.5 mg PO BID 05/15/22 06/12/22 05/15/22 History amlodipine 10 mg tablet 10 mg PO DAILY 05/18/22 06/12/22 Unknown History atenolol 50 mg-chlorthalidone 25 1 tab PO DAILY 05/18/22 06/12/22 Unknown History mg tablet triamcinolone acetonide 0.5 % 1 applic topical BID for 05/18/22 06/12/22 Unknown Rx topical cream dermatitis #15 grams doxycycline hyclate 100 mg capsule 100 mg PO BID for lung infection 06/02/22 06/12/22 Unknown Rx #20 caps warfarin 3 mg tablet 3 mg PO DAILY 06/12/22 06/12/22 Unknown History Allergies Allergy/AdvReac Type Severity Reaction Status Date / Time levofloxacin [From Levaquin] Allergy Intermediate Unknown Verified 05/18/22 07:42 metoprolol AdvReac Intermediate Bradycardia Verified 03/10/22 15:02 trazodone Allergy Intermediate Unknown Uncoded 05/18/22 07:42 PFSH Acute PFSH: Medical History (Updated 06/13/22 @ 09:47 by Junior Pina MD) CAD (coronary artery disease) of artery bypass graft Delete CAD, multiple vessel Diabetes mellitus History of non-ST elevation myocardial infarction (NSTEMI) History of stroke HTN (hypertension) Hyperlipidemia Paroxysmal atrial fibrillation Pyelonephritis Surgical History (Updated 06/13/22 @ 09:47 by Junior Pina MD) S/P PTCA (percutaneous transluminal coronary angioplasty) Family History Brother Heart disease Social History Smoking and tobacco status: former smoker Alcohol intake: never Vitals/I&O/Wt Last Vital Signs Temp 97.7 F 06/12/22 10:01 Pulse 125 H 06/12/22 10:01 Resp 16 06/12/22 10:01 BP 143/111 06/12/22 10:01 Pulse Ox 97 06/12/22 10:01 O2 Del Method 06/12/22 10:01 06/11/22 06/12/22 06/12/22 22:59 06:59 14:59 Intake Total 100.000 / 100.000 Balance 100.000 / 100.000 Weight last 48 hrs Weight 95.254 kg Physical Exam Narrative: elderly male male Currently doing well on room air A. fib RVR currently on amiodarone drip Variable S1-S2 Mild signs of fluid overload Awake and alert Nonfocal neuro exam Pleasant and cooperative Doing well on room air No sign of skin cellulitis Appropriate mood and affect Data 06/12/22 10:52 06/12/22 10:52 Micro: Microbiology 06/12/22 11:02 Blood Culture - Preliminary Blood SPECIMEN COLLECTED 06/12/22 11:02 Blood Culture - Preliminary Blood SPECIMEN COLLECTED A&P Assessment and plan (1) Atrial fibrillation with rapid ventricular response: (2) Hypertensive urgency: (3) Acute congestive heart failure with left ventricular diastolic dysfunction: (4) Type 2 diabetes mellitus: Qualifiers: Diabetes mellitus complication status: with hyperglycemia Diabetes mellitus half-way insulin use: without ferry terminal supervisor use Qualified Code(s): E11.65 - Type 2 diabetes mellitus with hyperglycemia (5) CAD, multiple vessel: Plan Chronic A. fib RVR Amiodarone drip We will load him with digoxin We will give him 2 g of mag Potassium is okay No active chest pain Patient was sleeping at the time of evaluation Continue Coumadin Check INR Digoxin loading dose Community-acquired pneumonia Given ceftriaxone and azithromycin Failed outpatient therapy Afebrile Every 4 as needed Consistent carb cardiac diet Full code Attestations Medical Necessity Statement*: Anticipating discharge within 48 hours Time Spent in Patient Care: 30 Coding Level of Care Code Acute Gum Machine Filler for [facility] Fwd Diagnoses Atrial fibrillation with rapid ventricular response I48.91 Hypertensive urgency I16.0 Acute congestive heart failure with left ventricular diastolic dysfunction I50.31 Type 2 diabetes mellitus E11.65 Diabetes mellitus complication status: with hyperglycemia Diabetes mellitus ferry terminal supervisor insulin use: without half-way use CAD, multiple vessel I25.10
--- NOTE | 2022-06-12 13:44 | PC.NURSE ---
ATTEMPTED REPORT NURSE UNAVAILABLE.
--- NOTE | 2022-06-12 14:03 | PC.NURSE ---
REPORT CALLED TO KRISTIE PUENTE ASSUMED.
--- NOTE | 2022-06-12 14:29 | PC.PHAR ---
PT AND FAMILY WERE UNABLE TO VERIFY MEDICATIONS, DID NOT ANSWER PHONE, VERIFIED BY [facility].
--- NOTE | 2022-06-12 14:51 | PC.NURSE ---
received from er via stretcher,into room 112-2,at 1430.report received.pt is alert and oriented x 4.denies chest pain,sob.afib on monitor..rate 130's-140's.on amioderone drip at 0.[address] cedeno called..and received order to increase drip to 1 mg per protocol.bp 143/111 per monitor.manual bp 140/90.oriented to room environment.instructed to notify staff for any chest pain,sob,or for any concerns at all.pt verb understanding of instructions.
[2022-06-12] MEDS: dilTIAZem 30 mg Tablet PO ×2 (15:20→20:41)
[2022-06-12 15:46] LABS: Thyroid Stimulating Hormone 1.38 uIU/mL (0.27-4.20)
--- NOTE | 2022-06-12 16:26 | ECG_ITS ---
[facility] Test Date: 2022-06-12 Pat Name: Mac Pacheco Department: Room: 112 Gender: Male Check Inspector: : 1950 Requested By: Serge Rosenberg Order Number: [id number] Reading MD: Kavon Gao M.D. Measurements Intervals [place] Rate: 142 P: 0 MI: 0 QRS: 79 QRSD: 93 T: 0 QT: 300 QTc: 462 Interpretive Statements ATRIAL FIBRILLATION WITH RAPID VENTRICULAR RESPONSE NONSPECIFIC T-WAVE ABNORMALITY Compared to ECG 06/12/2022 12:23:56 No significant changes Electronically Signed On 06-14-2022 18:30:29 VARNISH MELTER HELPER by Kavon Gao M.D. [id number]
[2022-06-12] MEDS: magnesium sulfate premix 2 GM/50 ML PIGGYBACK IV (16:47)
[2022-06-12] MEDS: digoxin 250 mcg/ml INJ 2 mL 500 MCG IVP (16:47)
[2022-06-12 17:03] LABS: Glucose Point of Care 340 mg/dL (70-110)
[2022-06-12] MEDS: carvedilol 12.5 mg Tablet PO (17:46)
[2022-06-12] MEDS: insulin lispro 100 unit/1 mL 15 UNIT SUBCUT (17:46)
[2022-06-12 17:58] LABS: Troponin 5 6HR 29.07 ng/L (0-15)
[2022-06-12 18:08] LABS: Troponin 5 6HR Delta 0.07 ng/L (0-12)
[2022-06-12 20:41] LABS: Glucose Point of Care 198 mg/dL (70-110)
[2022-06-12] MEDS: insulin lispro 100 unit/1 mL SUBCUT (20:42)
[2022-06-12] MEDS: digoxin 250 mcg/ml INJ 2 mL IVP (22:15)
[2022-06-12] MEDS: ondansetron 2 mg/ML SDV 2 mL 4 MG IVP (22:39)
[2022-06-12 23:02] LABS: Glucose Point of Care 46 mg/dL (70-110)
[2022-06-12] MEDS: dextrose 50% syringe 50 mL IVP (23:07)
[2022-06-12] MEDS: dextrose 5 % 500 ML 100 ML IV (23:28)
[2022-06-12 23:42] LABS: Glucose Point of Care 138 mg/dL (70-110)
[2022-06-13] VITALS (91 sets, daily range): BP systolic 94–164; BP diastolic 76–120; PULSE 74–153; RESP 9–38; TEMP 36.4–36.9; O2SAT 86–98
[2022-06-13] MEDS: dilTIAZem 30 mg Tablet PO (03:16)
[2022-06-13 06:24] LABS: Basophils % 0.2 %; Eosinophils # 0.1 10^3/uL (0.0-0.8); Eosinophils % 0.7 %; Hematocrit 41.9 % (42.0-52.0); Hemoglobin 13.3 g/dL (11.7-16.6); Lymphocytes # 0.8 10^3/uL (0.8-4.8); Lymphocytes % 8.6 %; Mean Corpuscular HGB Conc 31.7 g/dL (30.0-36.0); Mean Corpuscular Volume 91.3 fl (80-94); Mean Platelet Volume 12.4 fL (7.4-10.4); Monocytes # 0.6 10^3/uL (0.2-0.9); Monocytes % 6.9 %; Neutrophils # 7.23 10^3/uL (1.8-7.7); Neutrophils % 83.3 %; Nucleated Red Blood Cells % 0 %; Platelet Count 153 10^3/cmm (130-400); Red Blood Count 4.59 10^6/uL (4.1-5.3); Red Cell Distribution Width 13.4 % (12.1-15.1); White Blood Count 8.7 10^3/uL (4.0-10.0)
[2022-06-13 06:46] LABS: Alanine Aminotransferase 76 U/L (0-41); Albumin Level 3.2 g/dL (3.5-5.2); Alkaline Phosphatase 69 U/L (40-130); Aspartate Amino Transferase 37 U/L (0-40); Blood Urea Nitrogen 19 mg/dL (8-23); Calcium 9.5 mg/dL (8.5-10.5); Carbon Dioxide 23 mmol/L (22-29); Chloride 98 mmol/L (98-107); Creatinine Clr Calc Pharmacy 92.9015; Glucose 237 mg/dL (65-115); Magnesium 1.9 mg/dL (1.7-2.3); Osmolality Calculated 286 mOsm/kg (285-295); Sodium 133 mmol/L (136-145); Total Protein 6.2 g/dL (6.6-8.7)
[2022-06-13 07:08] LABS: Anion Gap 15.6 (5-19); Potassium 3.6 mmol/L (3.5-5.1)
[2022-06-13 07:24] LABS: Glucose Point of Care 135 mg/dL (70-110)
[2022-06-13 07:24] LABS: Glucose Point of Care 232 mg/dL (70-110)
[2022-06-13 07:24] LABS: Glucose Point of Care 277 mg/dL (70-110)
[2022-06-13 08:09] LABS: Estmated Average Glucose 163; Hemoglobin A1C 7.3 % (4.0-6.0)
[2022-06-13] MEDS: potassium chloride ER 20 mEq Tablet 40 MEQ PO (08:48)
[2022-06-13] MEDS: digoxin 125 mcg Tablet PO (08:49)
[2022-06-13] MEDS: amiodarone 200 mg Tablet 400 MG PO ×2 (08:49→17:33)
[2022-06-13] MEDS: azithromycin 250 mg Tablet 500 MG PO (08:49)
[2022-06-13] MEDS: dilTIAZem 60 mg Tablet PO ×3 (08:50→20:12)
[2022-06-13] MEDS: FUROsemide 10 mg/mL SDV 10mL 40 MG IVP (08:50)
[2022-06-13] MEDS: metoprolol tartrate 50 mg Tablet 100 MG PO ×2 (08:50→20:11)
[2022-06-13] MEDS: sennosides-docusate Tablet 1 TAB PO (08:51)
[2022-06-13] MEDS: cefTRIAXone 1,000 MG in sodium chloride 0.9% (plus) 50 ML 100 MG IV (08:53)
[2022-06-13 09:02] LABS: INR 1.92 (0.8-1.2)
--- NOTE | 2022-06-13 09:50 | PM.PN ---
Subjective Subjective: Patient is doing well A. fib RVR Currently on amiodarone drip He became hypoglycemic after getting 50 units of Humalog last night Currently blood sugars on higher side Vitals/I&O/Wt Last Vital Signs Temp 98.1 F 06/13/22 08:00 Pulse 143 H 06/13/22 08:49 Resp 18 06/13/22 08:17 BP 143/91 06/13/22 08:00 Pulse Ox 96 06/13/22 08:17 O2 Del Method 06/13/22 08:17 06/12/22 06/13/22 06/13/22 22:59 06:59 14:59 Intake Total 548.907 / 671.358 500 / 1171.358 240 / 240 Output Total 350 / 350 875 / 1225 Balance 198.907 / 321.358 -375 / -53.642 240 / 240 Weight last 48 hrs Weight 97.069 kg Weight 95.254 kg Physical Exam Narrative: Patient was eating breakfast Currently on room air A. fib RVR Abdomen soft Lower extremity no edema Pleasant and cooperative Data 06/13/22 04:51 06/13/22 04:51 Micro: Microbiology 06/12/22 11:02 Blood Culture - Preliminary Blood SPECIMEN COLLECTED 06/12/22 11:02 Blood Culture - Preliminary Blood SPECIMEN COLLECTED A&P Assessment and plan (1) Atrial fibrillation with rapid ventricular response: (2) Hypertensive urgency: (3) Acute congestive heart failure with left ventricular diastolic dysfunction: (4) Type 2 diabetes mellitus: Qualifiers: Diabetes mellitus complication status: with hyperglycemia Diabetes mellitus intermediate insulin use: without intermodal customer service use Qualified Code(s): E11.65 - Type 2 diabetes mellitus with hyperglycemia (5) Lower resp. tract infection: Plan A. fib RVR Status post digoxin loading dose Currently on p.o. digoxin Potassium given this morning Magnesium 1.9 We will follow-up with cardiology for further recommendations Check INR I have started him on p.o. digoxin, higher dose of metoprolol, higher dose of Cardizem along amiodarone Community-acquired pneumonia Leukocytosis improved Afebrile Doing well on room air Continue ceftriaxone and azithromycin Electrolytes: Replenished Full code Patient takes Coumadin hyperGlycemia, moderate dose sliding scale Check A1c level Attestations Medical Necessity Statement*: Continue medical management Time Spent in Patient Care: 30 Coding Level of Care Code Acute Protection Officer for Samantha Chu Diagnoses Atrial fibrillation with rapid ventricular response I48.91 Hypertensive urgency I16.0 Acute congestive heart failure with left ventricular diastolic dysfunction I50.31 Type 2 diabetes mellitus E11.65 Diabetes mellitus complication status: with hyperglycemia Diabetes mellitus intermediate insulin use: without intermodal customer service use Lower resp. tract infection J22
[2022-06-13] MEDS: insulin lispro 100 unit/1 mL SUBCUT ×3 (11:37→20:38)
[2022-06-13 11:49] LABS: Glucose Point of Care 320 mg/dL (70-110)
[2022-06-13] MEDS: warfarin 2 mg Tablet PO (15:04)
[2022-06-13 16:36] LABS: Glucose Point of Care 151 mg/dL (70-110)
--- NOTE | 2022-06-13 20:15 | P.CONIM_ITS ---
Providers/Reason For Consult Consulting Physician/Specialty*: Kavon Gao MD/Cardiology Reason for Consult*: Atrial fibrillation with RVR Requesting Physician: Dr Pina Attending Physician: Junior Pina MD Primary Care Provider: Joo Lugo DO History of Present Illness History of Present Illness Mac Pacheco is a 72 year old male with past medical history of coronary artery disease, atrial fibrillation who presented to the hospital for worsening shortness of breath. He was seen by PCP and was recommended to start on ant ibiotics for pneumonia. In the emergency room he was found to be in A. fib. He takes Coumadin however was subtherapeutic. He was initially started on Cardizem drip however as heart rates are not improving amiodarone was started. He is also on oral metoprolol. Denies chest pain. Review of Systems Const: Denies: fever(s) Eyes: Denies: change in vision ENMT: Denies: throat pain Card: Denies: chest pain Resp: Denies: dyspnea GI: Denies: abdominal pain : Denies: flank pain Musc: Denies: neck pain Skin/Breast: Denies: rash Neuro: Denies: headache(s) Psych: Denies: anxiety Endo: Denies: polyuria Joshua/Lymph: Denies: easy bruising All/Imm: Denies: urticaria Medications/Allergies Home Medications Medication Instructions Recorded Confirmed Last Taken Type atorvastatin 20 mg tablet 20 mg PO DAILY 08/27/19 06/12/22 05/14/22 History docusate sodium 100 mg capsule 100 mg PO BEDTIME 08/27/19 06/14/22 Unknown History metformin 500 mg tablet 1,000 mg PO BID 08/27/19 06/12/22 05/15/22 History jpm-Hk-wku-rpvda-ltoc-vj-Zn-Cu 1 tab PO DAILY 08/27/19 06/12/22 05/15/22 History [Prostate Control] carvedilol 12.5 mg tablet 12.5 mg PO BID #60 tabs 11/26/21 06/12/22 05/15/22 Rx nateglinide 120 mg tablet 120 mg PO TID #270 tabs 05/10/22 06/12/22 05/15/22 Rx hydrochlorothiazide 12.5 mg tablet 12.5 mg PO BID 1006/12/22 05/15/22 History triamcinolone acetonide 0.5 % 1 applic topical BID for 05/18/22 06/12/22 Unknown Rx topical cream dermatitis #15 grams warfarin 3 mg tablet 3 mg PO DAILY 06/12/22 06/12/22 Unknown History losartan 100 mg tablet 100 mg PO DIRECTED 06/14/22 06/14/22 Unknown History Allergies Allergy/AdvReac Type Severity Reaction Status Date / Time levofloxacin [From [facility]] Allergy Intermediate Unknown Verified 05/18/22 07:42 metoprolol AdvReac Intermediate Bradycardia Verified 03/10/22 15:02 trazodone Allergy Intermediate Unknown Uncoded 05/18/22 07:42 Current Medications Generic Name Dose Route Start Last Admin Trade Name Freq PRN Reason Stop Dose Admin Amiodarone HCl 400 mg 06/13/22 09:00 06/13/22 17:33 Amiodarone 200 Mg Tablet PO 400 mg BID NICHOLAS Administration Azithromycin 500 mg 06/13/22 09:00 06/13/22 08:49 Azithromycin 250 Mg Tablet PO 500 mg DAILY NICHOLAS Administration Protocol Digoxin 125 mcg 06/13/22 09:00 06/13/22 08:49 Digoxin 125 Mcg Tablet PO 125 mcg DAILY NICHOLAS Administration Diltiazem HCl 60 mg 06/13/22 08:00 06/13/22 15:04 Diltiazem 60 Mg Tablet PO 60 mg Q6H NICHOLAS Administration Furosemide 40 mg 06/13/22 09:00 06/13/22 08:50 Furosemide 10 Mg/Ml Sdv 10ml IVP 40 mg DAILY NICHOLAS Administration Diltiazem HCl 100 mg/ Sodium 100 mls @ 0 mls/hr 06/12/22 10:30 06/12/22 13:29 Chloride IV Infused .Q0M NICHOLAS Titration Protocol Per Protocol Ceftriaxone Sodium 1,000 mg/ 50 mls @ 100 mls/hr 06/13/22 09:00 06/13/22 19:11 Sodium Chloride IV Infused DAILY NICHOLAS Infusion Protocol Dextrose 500 mls @ 100 mls/hr 06/12/22 17:22 06/13/22 04:58 D5w IV Infused ONCE PRN Infusion Adult Acute Hypoglycemia Prot Protocol Insulin Human Lispro 0 unit 06/12/22 18:00 06/13/22 17:33 Insulin Lispro 100 Unit/1 Ml SUBCUT 2 unit WM&BEDTIME NICHOLAS Administration Protocol Metoprolol Tartrate 100 mg 06/13/22 07:25 06/13/22 09:02 Metoprolol Tartrate 50 Mg Tablet PO Not Given BID@0900,2100 [facility] Ondansetron HCl 4 mg 06/12/22 14:48 06/12/22 22:39 Ondansetron 2 Mg/Ml Sdv 2 Ml IVP 4 mg Q6H PRN Administration NAUSEA AND VOMITING Senna/Docusate Sodium 1 tab 06/13/22 09:00 06/13/22 08:51 Sennosides-Docusate Tablet PO 1 tab DAILY NICHOLAS Administration Warfarin Sodium 2 mg 06/13/22 14:00 06/13/22 15:04 Warfarin 2 Mg Tablet PO 2 mg Q24H NICHOLAS Administration PFSH Acute PFSH: Medical History CAD (coronary artery disease) of artery bypass graft Delete CAD, multiple vessel Diabetes mellitus History of non-ST elevation myocardial infarction (NSTEMI) History of stroke HTN (hypertension) Hyperlipidemia Paroxysmal atrial fibrillation Pyelonephritis Surgical History S/P PTCA (percutaneous transluminal coronary angioplasty) Family History Brother Heart disease Social History Smoking and tobacco status: former smoker Alcohol intake: never Vitals/I&O/Wt Last Vital Signs Temp 98.0 F 06/13/22 19:53 Pulse 108 H 06/13/22 19:45 Resp 18 06/13/22 19:45 BP 145/92 06/13/22 19:45 Pulse Ox 93 06/13/22 19:45 O2 Del Method 06/13/22 15:42 06/13/22 06/13/22 06/13/22 06:59 14:59 22:59 Intake Total 500 / 1171.358 766.642 / 766.642 290 / 1056.642 Output Total 875 / 1225 950 / 950 200 / 1150 Balance -375 / -53.642 -183.358 / -183.358 90 / -93.358 Weight last 48 hrs Weight 214 lb Weight 210 lb Physical Exam Narrative: GENERAL: Patient is alert, awake and oriented x3. [] NECK: No jugular vein distension. [] HEENT: No cyanosis. No icterus. No pallor. [] HEART: Irregularly irregular, tachycardic LUNGS: Clear to auscultate bilaterally. [] ABDOMEN: Soft, nontender and nondistended. Positive bowel sounds. No guarding, rebound or tenderness. [] CENTRAL NERVOUS SYSTEM: Grossly nonfocal. [] EXTREMITIES: Lower extremities with 1+ edema bilaterally. Pulses palpable in the lower extremities, both dorsalis pedis and posterior tibial. [] Data 06/13/22 04:51 06/13/22 04:51 Micro: Microbiology 06/12/22 11:02 Blood Culture - Preliminary Blood NEGATIVE TO DATE 06/12/22 11:02 Blood Culture - Preliminary Blood NEGATIVE TO DATE A&P Assessment and plan (1) Atrial fibrillation with rapid ventricular response: (2) Acute congestive heart failure with left ventricular diastolic dysfunction: (3) Type 2 diabetes mellitus: Qualifiers: Diabetes mellitus complication status: with hyperglycemia Diabetes mellitus detention insulin use: without detention use Qualified Code(s): E11.65 - Type 2 diabetes mellitus with hyperglycemia (4) CAD, multiple vessel: Plan Patient is currently being treated for pneumonia. He is in atrial fibrillation with RVR. Continue amiodarone drip. Continue metoprolol. If heart rates are not controlled by tomorrow, we can consider TONY cardioversion. He is subtherapeutic on INR. Continue monitoring PT/INR. Continue Coumadin Thank you for involving us with care of this patient. We will continue to follow. Please call with questions. Consult Attestations Medical Necessity Statement: Care expected to cross 2 midnights. Coding Level of Care Code Acute Iap Displays Analyst for Samantha Fwd Diagnoses Atrial fibrillation with rapid ventricular response I48.91 Acute congestive heart failure with left ventricular diastolic dysfunction I50.31 Type 2 diabetes mellitus E11.65 Diabetes mellitus complication status: with hyperglycemia Diabetes mellitus porcelain turner insulin use: without detention use CAD, multiple vessel I25.10
[2022-06-13 20:33] LABS: Glucose Point of Care 292 mg/dL (70-110)
[2022-06-14] VITALS (73 sets, daily range): BP systolic 123–173; BP diastolic 62–106; PULSE 54–127; RESP 0–60; TEMP 36.5–37.2; O2SAT 86–98
[2022-06-14] MEDS: dilTIAZem 60 mg Tablet PO (01:46)
[2022-06-14 05:21] LABS: Basophils % 0.4 %; Eosinophils # 0.2 10^3/uL (0.0-0.8); Eosinophils % 2.3 %; Hematocrit 41.4 % (42.0-52.0); Hemoglobin 13.6 g/dL (11.7-16.6); Lymphocytes # 1.2 10^3/uL (0.8-4.8); Lymphocytes % 12.1 %; Mean Corpuscular HGB Conc 32.9 g/dL (30.0-36.0); Mean Corpuscular Hemoglobin 29.3 pg (28.0-34.0); Mean Corpuscular Volume 89.2 fl (80-94); Mean Platelet Volume 11.8 fL (7.4-10.4); Monocytes % 10.3 %; Neutrophils # 7.48 10^3/uL (1.8-7.7); Neutrophils % 74.4 %; Nucleated Red Blood Cells % 0 %; Platelet Count 214 10^3/cmm (130-400); Red Blood Count 4.64 10^6/uL (4.1-5.3); Red Cell Distribution Width 13.5 % (12.1-15.1)
[2022-06-14 05:38] LABS: INR 2.05 (0.8-1.2)
[2022-06-14 05:41] LABS: Anion Gap 14.7 (5-19); Blood Urea Nitrogen 16 mg/dL (8-23); Calcium 9.4 mg/dL (8.5-10.5); Carbon Dioxide 29 mmol/L (22-29); Chloride 102 mmol/L (98-107); Glucose 121 mg/dL (65-115); Osmolality Calculated 296 mOsm/kg (285-295); Potassium 3.7 mmol/L (3.5-5.1); Sodium 142 mmol/L (136-145)
[2022-06-14 06:25] LABS: Glucose Point of Care 152 mg/dL (70-110)
[2022-06-14] MEDS: digoxin 125 mcg Tablet PO (07:30)
[2022-06-14] MEDS: sennosides-docusate Tablet 1 TAB PO (07:31)
[2022-06-14] MEDS: azithromycin 250 mg Tablet 500 MG PO (07:31)
[2022-06-14] MEDS: amiodarone 200 mg Tablet 400 MG PO ×2 (07:31→18:48)
[2022-06-14] MEDS: metoprolol tartrate 50 mg Tablet 100 MG PO (08:37)
[2022-06-14] MEDS: insulin lispro 100 unit/1 mL SUBCUT ×4 (08:37→20:55)
[2022-06-14] MEDS: cefTRIAXone 1,000 MG in sodium chloride 0.9% (plus) 50 ML 100 MG IV (08:37)
[2022-06-14] MEDS: dilTIAZem ER (24HR) 300 mg Capsule PO (09:02)
[2022-06-14] MEDS: FUROsemide 10 mg/mL SDV 10mL 40 MG IVP (09:52)
--- NOTE | 2022-06-14 10:59 | PM.PN ---
Subjective Subjective: Patient reports breathing has improved some, but stilll having dyspnea on exertion. Reports some difficulty sleeping and getting comfortable in the bed. Reports heart rate remains elevated. Denies fevers, chills, chest pain, nausea, or emesis. Vitals/I&O/Wt Last Vital Signs Temp 98.6 F 06/14/22 07:16 Pulse 108 H 06/14/22 09:20 Resp 20 H 06/14/22 09:20 BP 137/106 06/14/22 07:16 Pulse Ox 95 06/14/22 09:20 O2 Del Method 06/14/22 09:20 06/13/22 06/14/22 06/14/22 22:59 06:59 14:59 Intake Total 290 / 1056.642 286 / 286 Output Total 550 / 1500 400 / 1900 Balance -260 / -443.358 -400 / -843.358 286 / 286 Weight last 48 hrs Weight 97.069 kg Physical Exam Narrative: General: Patient is awake and alert. Head: Normocephalic. Atraumatic. EOM intact. Neck: No JVD. Cardiovascular: No gallops. No murmurs. Trace bilateral lower extremity peripheral edema. Tachycardic. Irregularly irregular rhythm. Lungs: Breath sounds diminished at bilateral bases, no use of accessory muscles, no crackles or wheezes. Skin: No jaundice. No rashes. Abdomen: Normal bowel sounds, abdomen soft and nontender. Genito Urinary: Genital exam not performed since complaints not related. Rectal: Rectal exam not performed since no symptoms indicated blood loss. Extremities: No cyanosis or clubbing. Musculoskeletal: 5/5 strength, normal range of motion, no swollen or erythematous joints. Neurological: Moves all 4 extremities. No myoclonus. Data 06/14/22 04:05 06/14/22 04:05 Micro: Microbiology 06/12/22 11:02 Blood Culture - Preliminary Blood NEGATIVE TO DATE 06/12/22 11:02 Blood Culture - Preliminary Blood NEGATIVE TO DATE A&P Assessment and plan (1) Atrial fibrillation with rapid ventricular response: Heart rate remains uncontrolled, he is not responding to treatment as intended Telemetry monitoring Rotate to diltiazem ER 300 mg daily Continue amiodarone 400 mg BID Continue digoxin for now, would prefer not to be on both digoxin and amiodarone Continue metoprolol, consider dose adjustment Cardiology following, appreciate recommendations Continue warfarin Monitor electrolytes (2) Lower resp. tract infection: Community acquired pneumonia Continue ceftriaxone Continue azithromycin Breathing treatments as needed Pulmonary toilet (3) Type 2 diabetes mellitus: Labile blood glucose with hypoglycemia and hyperglycemia throughout hospitalization Sliding scale insulin correction Hypoglycemia protocol Qualifiers: Diabetes mellitus complication status: with hyperglycemia Diabetes mellitus statistical machine servicer insulin use: without statistical machine servicer use Qualified Code(s): E11.65 - Type 2 diabetes mellitus with hyperglycemia (4) Acute congestive heart failure with left ventricular diastolic dysfunction: Remains overloaded, but seems to be improving Continue with IV Lasix Strict I&Os Daily weights Transthoracic echocardiogram ordered Cardiology following, appreciate recommendations (5) Hypertensive urgency: Hypertensive urgency has resolved, but still hypertension remains uncontrolled Continue metoprolol Continue IV lasix Continue diltiazem Confirm home blood pressure medications, discussed with patient's RN Plan DVT ppx: Warfarin Code status: Full Code Attestations Medical Necessity Statement*: Patient remains in atrial fibrillation with rapid ventricular rate as well as acute exacerbation of diastolic heart failure with preserved ejection fraction requiring ongoing hospitalization for telemetry, hemodynamic monitoring, and medication adjustments. Coding Level of Care Code Acute Minibus Driver for [facility] Fwd Diagnoses Atrial fibrillation with rapid ventricular response I48.91 Lower resp. tract infection J22 Type 2 diabetes mellitus E11.65 Diabetes mellitus complication status: with hyperglycemia Diabetes mellitus [facility] insulin use: without statistical machine servicer use Acute congestive heart failure with left ventricular diastolic dysfunction I50.31 Hypertensive urgency I16.0
--- NOTE | 2022-06-14 11:11 | USCV_ITS ---
Mac Pacheco Age: 72 Gender: M : 1950 Exam Date: 06/14/2022 13:48 Ordering Phys: Del Gallardo MD Technologist: Jose C Tellez [place] [facility] [place]ication: chf ecacerbation BP: 143 / 73 HR: 59 Rhythm: Sinus Technical Quality: Adequate MEASUREMENTS (Male / Female) Normal Values 2D ECHO LV Diastolic Diameter PLAX 4.9 cm 4.2 - 5.9 / 3.9 - 5.3 cm LV Systolic Diameter PLAX 3.6 cm IVS Diastolic Thickness 1.0 cm 0.6 - 1.0 / 0.6 - 0.9 cm IVS Systolic Thickness 1.5 cm LVPW Diastolic Thickness 0.9 cm 0.6 - 1.0 / 0.6 - 0.9 cm LVPW Systolic Thickness 1.3 cm LVOT Diameter 2.1 cm LV Ejection Fraction 2D Teich 39.9 % LV Ejection Fraction MOD 2C 57.5 % LV Ejection Fraction 2C AL 58.6 % LA Diameter 5.1 cm Aorta at Sinotubular Diameter 3.0 cm IVC Diameter 1.4 cm M-MODE Aortic Annulus Diameter 3.9 cm LA Ao Ratio MM 1.7 MV E Point Septal Separation 0.8 cm DOPPLER AV Peak Velocity 124.0 cm/s LVOT Peak Velocity 103.0 cm/s AV Area Cont Eq vti 3.1 cm squared AV Area Cont Eq pk 3.0 cm squared MV Area PHT 5.0 cm squared Mitral E to A Ratio 1.4 MV E' Velocity 84.8 cm/s Mitral E to MV E' Ratio 14.7 Mitral E to LV E' Lateral Ratio 13.8 Mitral E to LV E' Septal Ratio 15.8 TR Peak Velocity 197.7 cm/s TR Peak Gradient 15.6 mmHg TV Peak E Velocity 104.0 cm/s Right Atrial Pressure 3.0 mmHg Pulmonary Artery Systolic Pressu 18.6 mmHg RV Acceleration Time 0.1 s FINDINGS Left Ventricle Normal left ventricular size and systolic function, EF 59 %. No regional wall motion abnormalities. Right Ventricle The right ventricle is normal in size and function. Right Atrium The right atrium is normal in size. Left Atrium The left atrium is normal in size. Mitral Valve Thickened mitral valve. Mild mitral annular calcification. Trace to mild mitral valve regurgitation. Aortic Valve Thickened aortic valve. Tricuspid Valve No gross abnormalities noted Pulmonic Valve No gross abnormalities noted Pericardium Normal pericardium without effusion. Aorta Normal ascending aorta dimension. IVC Normal inferior vena cava. CONCLUSIONS Normal left ventricular size and systolic function, EF 59 %. No regional wall motion abnormalities. Thickened mitral valve. Mild mitral annular calcification. Trace to mild mitral valve regurgitation. Thickened aortic valve. There is no pericardial effusion. There are no intracardiac masses. Compared to the previous study from 08/12/2017, there may not be significant change Dr Sheri Rico MD FACC (Electronically Signed) Final Date: 14 June 2022 20:08 S
[2022-06-14 11:17] LABS: Glucose Point of Care 222 mg/dL (70-110)
[2022-06-14] MEDS: acetaminophen 325 mg Tablet 650 MG PO (12:01)
--- NOTE | 2022-06-14 12:18 | ECG_ITS ---
[facility] Test Date: 2022-06-14 Pat Name: Mac Pacheco Department: Room: 112 Gender: Male Inpatient Services Rn: : 1950 Requested By: Kavon Gao Order Number: [id number] Rico MD: Kavon Gao M.D. Measurements Intervals [place] Rate: 61 P: 57 MA: 152 QRS: 68 QRSD: 82 T: 90 QT: 398 QTc: 401 Interpretive Statements SINUS RHYTHM POSSIBLE LEFT ATRIAL ENLARGEMENT [-0.1mV P-WAVE IN V1/V2] NONSPECIFIC ST & T-WAVE ABNORMALITY Compared to ECG 06/12/2022 16:26:39 Atrial fibrillation no longer present T-wave abnormality still present Electronically Signed On 06-14-2022 18:28:06 CHIEF GAUGER by Kavon Gao M.D. [id number]
--- NOTE | 2022-06-14 12:48 | P.PN_ITS ---
Subjective Subjective: Patient is overall doing well. He converted back to normal sinus rhythm today. Therapeutic INR today. Vitals/I&O/Wt Last Vital Signs Temp 98.6 F 06/14/22 07:16 Pulse 60 06/14/22 12:46 Resp 14 06/14/22 12:46 BP 143/73 06/14/22 12:46 Pulse Ox 95 06/14/22 11:34 O2 Del Method 06/14/22 12:46 06/13/22 06/14/22 06/14/22 22:59 06:59 14:59 Intake Total 290 / 1056.642 526 / 526 Output Total 550 / 1500 400 / 1900 680 / 680 Balance -260 / -443.358 -400 / -843.358 -154 / -154 Weight last 48 hrs Weight 214 lb Physical Exam Narrative: GENERAL: Patient is alert, awake and oriented x3. [] NECK: No jugular vein distension. [] HEENT: No cyanosis. No icterus. No pallor. [] HEART:Regular LUNGS: Clear to auscultate bilaterally. [] ABDOMEN: Soft, nontender and nondistended. Positive bowel sounds. No guarding, rebound or tenderness. [] CENTRAL NERVOUS SYSTEM: Grossly nonfocal. [] EXTREMITIES: Lower extremities with 1+ edema bilaterally. Pulses palpable in the lower extremities, both dorsalis pedis and posterior tibial. [] Data 06/14/22 04:05 06/14/22 04:05 Micro: Microbiology 06/12/22 11:02 Blood Culture - Preliminary Blood NEGATIVE TO DATE 06/12/22 11:02 Blood Culture - Preliminary Blood NEGATIVE TO DATE A&P Assessment and plan (1) Atrial fibrillation with rapid ventricular response: (2) Acute congestive heart failure with left ventricular diastolic dysfunction: (3) Type 2 diabetes mellitus: Qualifiers: Diabetes mellitus complication status: with hyperglycemia Diabetes mellitus family lawyer insulin use: without family lawyer use Qualified Code(s): E11.65 - Type 2 diabetes mellitus with hyperglycemia (4) CAD, multiple vessel: Plan Patient has converted back to normal sinus rhythm. We will decrease metoprolol to 25 mg twice daily. Continue amiodarone 400 mg twice daily for 1 week and then down titrate to 200 mg daily. Continue anticoagulation with Coumadin Thank you for involving us with care of this patient. We will continue to follow. Please call with questions. Attestations Medical Necessity Statement*: Care expected to cross 2 midnights. Coding Level of Care Code Acute Aeronautical Engineering Professor for Samantha Fwd Diagnoses Atrial fibrillation with rapid ventricular response I48.91 Acute congestive heart failure with left ventricular diastolic dysfunction I50.31 Type 2 diabetes mellitus E11.65 Diabetes mellitus complication status: with hyperglycemia Diabetes mellitus nursing home insulin use: without nursing home use CAD, multiple vessel I25.10
[2022-06-14] MEDS: warfarin 2 mg Tablet PO (14:12)
[2022-06-14] MEDS: bisacodyl 5 mg Tablet 10 MG PO (14:13)
[2022-06-14 16:55] LABS: Glucose Point of Care 245 mg/dL (70-110)
[2022-06-14 20:41] LABS: Glucose Point of Care 292 mg/dL (70-110)
[2022-06-14] MEDS: metoprolol tartrate 25 mg Tablet PO (20:55)
[2022-06-15] VITALS (36 sets, daily range): BP systolic 155–177; BP diastolic 70–91; PULSE 54–86; RESP 6–25; TEMP 36.4–36.6; O2SAT 95–98
[2022-06-15 06:12] LABS: Glucose Point of Care 128 mg/dL (70-110)
[2022-06-15 07:50] LABS: Albumin Level 3.4 g/dL (3.5-5.2); Anion Gap 13.5 (5-19); Blood Urea Nitrogen 18 mg/dL (8-23); Calcium 9.5 mg/dL (8.5-10.5); Carbon Dioxide 28 mmol/L (22-29); Chloride 101 mmol/L (98-107); Glucose 134 mg/dL (65-115); Phosphorus 3.1 mg/dL (2.5-4.5); Potassium 3.5 mmol/L (3.5-5.1); Sodium 139 mmol/L (136-145)
[2022-06-15] MEDS: amiodarone 200 mg Tablet 400 MG PO (08:41)
[2022-06-15] MEDS: digoxin 125 mcg Tablet PO (08:41)
[2022-06-15] MEDS: azithromycin 250 mg Tablet 500 MG PO (08:41)
[2022-06-15] MEDS: dilTIAZem ER (24HR) 300 mg Capsule PO (08:42)
[2022-06-15] MEDS: cefTRIAXone 1,000 MG in sodium chloride 0.9% (plus) 50 ML 100 MG IV (08:42)
[2022-06-15] MEDS: metoprolol tartrate 25 mg Tablet PO (08:44)
--- NOTE | 2022-06-15 10:18 | PM.PN ---
Subjective Subjective: Patient is overall stable. Staying in normal sinus rhythm. Vitals/I&O/Wt Last Vital Signs Temp 97.9 F 06/15/22 08:00 Pulse 86 06/15/22 08:41 Resp 24 H 06/15/22 08:15 BP 177/91 06/15/22 08:15 Pulse Ox 98 06/15/22 07:30 O2 Del Method 06/15/22 04:30 06/14/22 06/15/22 06/15/22 22:59 06:59 14:59 Intake Total 565 / 1191 340 / 1531 360 / 360 Output Total 530 / 530 Balance 565 / 421 340 / 761 -170 / -170 Physical Exam Narrative: GENERAL: Patient is alert, awake and oriented x3. [] NECK: No jugular vein distension. [] HEENT: No cyanosis. No icterus. No pallor. [] HEART:Regular LUNGS: Clear to auscultate bilaterally. [] ABDOMEN: Soft, nontender and nondistended. Positive bowel sounds. No guarding, rebound or tenderness. [] CENTRAL NERVOUS SYSTEM: Grossly nonfocal. [] EXTREMITIES: Lower extremities with 1+ edema bilaterally. Pulses palpable in the lower extremities, both dorsalis pedis and posterior tibial. [] Data 06/14/22 04:05 06/15/22 07:20 A&P Assessment and plan (1) Atrial fibrillation with rapid ventricular response: (2) Acute congestive heart failure with left ventricular diastolic dysfunction: (3) Type 2 diabetes mellitus: Qualifiers: Diabetes mellitus complication status: with hyperglycemia Diabetes mellitus [facility] insulin use: without long distance operator use Qualified Code(s): E11.65 - Type 2 diabetes mellitus with hyperglycemia (4) CAD, multiple vessel: Plan Continue current medications. Continue amiodarone 400 mg a day for 1 week and will be down titrated to 200 mg daily. Low dose metoprolol. Thank you for involving us with care of this patient.Patient is stable to be discharged from cardiology standpoint. Please call with questions. Attestations Medical Necessity Statement*: Care expected to cross 2 midnights. Coding Level of Care Code Acute Solar Pool Heating Installer for zuhair Fwshani Diagnoses Atrial fibrillation with rapid ventricular response I48.91 Acute congestive heart failure with left ventricular diastolic dysfunction I50.31 Type 2 diabetes mellitus E11.65 Diabetes mellitus complication status: with hyperglycemia Diabetes mellitus [facility] insulin use: without [facility] use CAD, multiple vessel I25.10
--- NOTE | 2022-06-15 10:42 | P.DS_ITS ---
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 Cardiology was consulted and followed. His rate control medications were adjusted as per discharge medication reconciliation. Patient converted to sinus rhythm prior to discharge. His community acquired pneumonia was treated with azithromycin and ceftriaxone. He was subsequently discharged on cefdinir. Patient's symptoms resolved. He was discharged to home in stable condition. He is to follow up with PCP and cardiology in clinic. Physical Exam Narrative: General: Patient is awake and alert. Pleasant. Head:? Normocephalic. Atraumatic. EOM intact. Neck: No JVD. Cardiovascular:? No gallops. No murmurs.?Regular rate. Regular rhythm. No lower extremity edema. Lungs: Breath sounds diminished at bilateral bases, no use of accessory muscles, no crackles or wheezes. Skin: No jaundice. No rashes. Abdomen: Normal bowel sounds, abdomen soft and nontender. Genito Urinary: Genital exam not performed since complaints not related. Rectal: Rectal exam not performed since no symptoms indicated blood loss. Extremities: No cyanosis or clubbing. Musculoskeletal: 5/5 strength, normal range of motion, no swollen or erythematous joints. Neurological: Moves all 4 extremities. No myoclonus. Discharge Data Studies Completed and Pending Completed Studies During Hospitalization Category Date Time Status XR chest 1V portable [id number] Urgent Exams 06/12/22 10:21 Completed CV. echo complete* [id number] Routine Ultrasound 06/14/22 11:11 Completed Pending at discharge Category Date Time Status Blood Culture Stat Lab 06/12/22 11:02 Results Sputum Culture and Gram Stain Routine Lab 06/12/22 14:48 Uncollected Radiology Impressions Chest X-Ray 06/12/22 10:21 IMPRESSION: 1. Nonspecific bibasilar opacities, favoring atelectasis or pneumonia. 2. There is blunting of the right costophrenic angle, likely indicating a small pleural effusion. 3. Mild cardiomegaly stable. Laboratory Results WBC 10.0 10^3/uL (4.0-10.0) 06/14/22 04:05 RBC 4.64 10^6/uL (4.1-5.3) 06/14/22 04:05 Hgb 13.6 g/dL (11.7-16.6) 06/14/22 04:05 Hct 41.4 % (42.0-52.0) L 06/14/22 04:05 MCV 89.2 fl (80-94) 06/14/22 04:05 MCH 29.3 pg (28.0-34.0) 06/14/22 04:05 MCHC 32.9 g/dL (30.0-36.0) 06/14/22 04:05 RDW 13.5 % (12.1-15.1) 06/14/22 04:05 Plt Count 214 10^3/cmm (130-400) D 06/14/22 04:05 MPV 11.8 fL (7.4-10.4) H 06/14/22 04:05 Neut % (Auto) 74.4 % 06/14/22 04:05 Lymph % (Auto) 12.1 % 06/14/22 04:05 [place] % (Auto) 10.3 % 06/14/22 04:05 Eos % (Auto) 2.3 % 06/14/22 04:05 Baso % (Auto) 0.4 % 06/14/22 04:05 Neut # (Auto) 7.48 10^3/uL (1.8-7.7) 06/14/22 04:05 Lymph # (Auto) 1.2 10^3/uL (0.8-4.8) 06/14/22 04:05 [place] # (Auto) 1.0 10^3/uL (0.2-0.9) H 06/14/22 04:05 Eos # (Auto) 0.2 10^3/uL (0.0-0.8) 06/14/22 04:05 Baso # (Auto) 0.0 10^3/uL (0.0-0.1) 06/14/22 04:05 Nucleated RBC % (auto) 0 % 06/14/22 04:05 Nucleated RBCs # 0.0 /100WBC 06/14/22 04:05 PT 23.40 SECONDS (12.1-14.9) H 06/14/22 04:05 INR 2.05 (0.8-1.2) H 06/14/22 04:05 Sodium 139 mmol/L (136-145) 06/15/22 07:20 Potassium 3.5 mmol/L (3.5-5.1) 06/15/22 07:20 Chloride 101 mmol/L (98-107) 06/15/22 07:20 Carbon Dioxide 28 mmol/L (22-29) 06/15/22 07:20 Anion Gap 13.5 (5-19) 06/15/22 07:20 BUN 18 mg/dL (8-23) 06/15/22 07:20 Creatinine 0.9 mg/dL (0.7-1.2) 06/15/22 07:20 GFR Calculation Not Reportable 06/15/22 07:20 Glucose 134 mg/dL (65-115) H 06/15/22 07:20 POC Glucose 128 mg/dL (70-110) H 06/15/22 06:04 Estimat Average Glucose 163 06/13/22 04:51 Hemoglobin A1c 7.3 % (4.0-6.0) H 06/13/22 04:51 Calculated Osmolality 296 mOsm/kg (285-295) H 06/14/22 04:05 Lactate 1.8 mmol/L (0.5-2.2) 06/12/22 10:52 Calcium 9.5 mg/dL (8.5-10.5) 06/15/22 07:20 Phosphorus 3.1 mg/dL (2.5-4.5) 06/15/22 07:20 Magnesium 1.9 mg/dL (1.7-2.3) 06/13/22 04:51 Total Bilirubin 2.0 mg/dL (0.15-1.2) H 06/13/22 04:51 AST 37 U/L (0-40) 06/13/22 04:51 ALT 76 U/L (0-41) H 06/13/22 04:51 Alkaline Phosphatase 69 U/L (40-130) 06/13/22 04:51 Troponin T Baseline 29 ng/L (0-15) H 06/12/22 10:52 Troponin T 120 Minute 26.03 ng/L (0-15) H 06/12/22 12:51 Delta Troponin T -2.97 ABS# (0-10) L 06/12/22 12:51 Troponin T Hi Sens 6Hr 29.07 ng/L (0-15) H 06/12/22 17:20 Troponin T Hi Sens 6Hr Delta 0.07 ng/L (0-12) 06/12/22 17:20 NT-Pro-B Natriuret Pep 2642 pg/mL (0-125) H 06/12/22 10:52 Total Protein 6.2 g/dL (6.6-8.7) L 06/13/22 04:51 Albumin 3.4 g/dL (3.5-5.2) L 06/15/22 07:20 Globulin 3.0 g/dL (1.3-4.6) 06/13/22 04:51 TSH 1.38 uIU/mL (0.27-4.20) 06/12/22 10:52 Urine Color Yellow (Yellow) 06/12/22 11:00 Urine Appearance Clear (CLEAR) 06/12/22 11:00 Urine pH 5 (5-7) 06/12/22 11:00 Ur Specific [place] 1.010 (1.005-1.030) 06/12/22 11:00 Urine Protein Trace (Negative) 06/12/22 11:00 Urine Glucose (UA) 4+ (Normal) H 06/12/22 11:00 Urine Ketones 1+ (Negative) H 06/12/22 11:00 Urine Blood Neg (Negative) 06/12/22 11:00 Urine Nitrate Negative (Negative) 06/12/22 11:00 Urine Bilirubin Neg (Negative) 06/12/22 11:00 Urine Urobilinogen Norm mg/dL (Negative) 06/12/22 11:00 Ur Leukocyte Esterase Negative (Negative) 06/12/22 11:00 Urine RBC 0-4 /hpf (0-2) H 06/12/22 11:00 Urine WBC 0-4 /hpf (0-5) H 06/12/22 11:00 Ur Squamous Epith Cells 0-4 /hpf (0-5) H 06/12/22 11:00 Amorphous Sediment Not Reportable 06/12/22 11:00 Urine Bacteria Trace /hpf (NONE) 06/12/22 11:00 Influenza Type A Ag negative (Negative) 06/12/22 10:52 Influenza Type B Ag negative (Negative) 06/12/22 10:52 SARS-CoV-2 Ag (Rapid) negative (Negative) 06/12/22 10:52 Vitals Last Vital Signs Temp 97.9 F 06/15/22 08:00 Pulse 86 06/15/22 08:41 Resp 24 H 06/15/22 08:15 BP 177/91 06/15/22 08:15 Pulse Ox 98 06/15/22 07:30 O2 Del Method 06/15/22 04:30 Discharge Plan Discharge Patient Disposition: Home Condition: Stable Prescriptions: New Pacerone 200 mg Tablet See Rx Instructions .ROUTE .COMPLEX 30 Days Qty: 51 0RF Rx Instructions: Take 400 mg twice daily for 7 days, then take 200 mg daily diltiazem HCl 300 mg Capsule,Extended Release 24hr 300 mg PO DAILY 30 Days Qty: 30 0RF digoxin 125 mcg (0.125 mg) Tablet 125 mcg PO DAILY 30 Days Qty: 30 0RF metoprolol tartrate 25 mg Tablet 25 mg PO BID@0900,2100 30 Days Qty: 30 0RF cefdinir 300 mg capsule 300 mg PO BID 5 Days Qty: 10 0RF Continued metformin 500 mg tablet 1,000 mg PO BID atorvastatin 20 mg tablet 20 mg PO DAILY docusate sodium 100 mg capsule 100 mg PO BEDTIME [id number]-On-[id number]-vkag-[id number]-Zn-Cu 1 tab PO DAILY triamcinolone acetonide 0.5 % cream 1 applic topical BID Qty: 15 3RF nateglinide 120 mg tablet 120 mg PO TID Qty: 270 3RF Rx Instructions: give before meal(s) hydrochlorothiazide 12.5 mg tablet 12.5 mg PO BID warfarin 3 mg Tablet 3 mg PO DAILY losartan 100 mg Tablet 100 mg PO DIRECTED Rx Instructions: TAKE 1 TAB in the MORNING and 1/2 TAB in the evening as directed. Discontinued carvedilol 12.5 mg tablet 12.5 mg PO BID Qty: 60 6RF Rx Instructions: must administer with a meal/food Discharge Orders: Discharge Order (Routine); Ordered 06/15/22 Ordered By: Del Gallardo Referrals: Kavon Gao M.D [Physician] - 07/01/22 12:30 pm (Please follow-up with Dr. Gao on Jul 01 at at 12:30P.M. If you have any questions or reschedule. Please call ) Joo Lugo, [Primary Care Provider] - 06/22/22 10:10 am (Please follow-up Dr. Lugo on Jun 22 at 10:10A.M. If you have any questions or need to reschedule. Please call ) Discharge Diet: Cardiac Discharge Activity: Increase activity as tolerated Patient Instructions: Metoprolol (By mouth) (Lopressor, Toprol XL), Diltiazem (By mouth) (Cardizem, Cardizem CD, Cardizem LA, Cardizem SR), Digoxin (By mouth), Amiodarone (By mouth) (Cordarone, Pacerone), Cefdinir (By mouth), Coronary Artery Disease (DC), A-fib (Atrial Fibrillation) (DC), CHF Stoplight, Opioid Safety Activity Restrictions/Additional Instructions: 1. Increase activity as tolerated. 2. Take medications as prescribed 3. Keep home blood pressure log 4. Follow up with primary care physician 5. 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
== END 2022-06-15 12:15 | disposition home or self-care (01) | DRG 308 ==
LOC: ER 13:36 → CSU 13:52
PROVIDERS: Admitting Provider Internal Medicine; Emergency Provider Family Medicine; PCP Family Medicine; Visit Provider Internal Medicine
DX: I48.20 Chronic atrial fibrillation, unspecified (principal); I50.31 Acute diastolic (congestive) heart failure; J18.9 Pneumonia, unspecified organism; I69.354 Hemiplegia and hemiparesis following cerebral infarction affecting left non-dominant side; I11.0 Hypertensive heart disease with heart failure; I25.10 Atherosclerotic heart disease of native coronary artery without angina pectoris; I16.0 Hypertensive urgency; E11.65 Type 2 diabetes mellitus with hyperglycemia; E11.649 Type 2 diabetes mellitus with hypoglycemia without coma; I25.2 Old myocardial infarction; E78.5 Hyperlipidemia, unspecified; Z87.891 Personal history of nicotine dependence; Z79.01 Long term (current) use of anticoagulants; Z95.5 Presence of coronary angioplasty implant and graft; Z79.2 Long term (current) use of antibiotics; Z79.84 Long term (current) use of oral hypoglycemic drugs
CPT/HCPCS: 36415; 36416; 71045; 80048; 80053; 80069; 81001; 82962; 83036; 83605; 83735; 83880; 84443; 84484; 85025; 85610; 87040; 87426; 87804; 93005; 93306; 96365; 96367; 96372; 96375; 99285; G0378; J0282; J0696; J1160; J1815; J1940; J2405; J3475; J3490; J7060; Q0144

== ENCOUNTER → 2022-07-01 12:20 | Outpatient (BNVA) | payer MEDICARE, OTHER, SELFPAY | PROVIDERS: PCP Family Medicine; Visit Provider Internal Medicine | DX: I25.10 Atherosclerotic heart disease of native coronary artery without angina pectoris (principal); I10 Essential (primary) hypertension; I48.0 Paroxysmal atrial fibrillation; Z87.891 Personal history of nicotine dependence; I25.2 Old myocardial infarction | CPT/HCPCS: 99214 ==

== ENCOUNTER 2022-09-05 14:20 | Inpatient (IN) | payer MEDICARE, OTHER, SELFPAY ==
[2022-09-05] VITALS (25 sets, daily range): BP systolic 162–205; BP diastolic 66–78; PULSE 67–96; RESP 9–30; TEMP 36.6–39.3; O2SAT 90–97; BMI 32.6; BMI 29.9
--- NOTE | 2022-09-05 14:34 | XRR_ITS ---
PROCEDURE INFORMATION: Exam: XR Chest Exam date and time: 09/05/2022 2:39 PM Age: 72 years old Clinical indication: Shortness of breath; Prior surgery; Surgery type: Stent; Patient HX: Chf; Additional info: SOB TECHNIQUE: Imaging protocol: Radiologic exam of the chest. Views: 1 view. COMPARISON: CR (CHEST, ) 06/12/2022 11:58 AM FINDINGS: Lungs: Lung volumes are somewhat decreased, unchanged. Scattered patchy thank ground-glass opacities right mid and lower lung zone that may be secondary to vascular congestion. No consolidating infiltrates or urban pulmonary edema. Pleural spaces: Unremarkable. No pleural effusion. No pneumothorax. Heart/Mediastinum: Heart is mildly enlarged, unchanged. Bones/joints: Unremarkable for age. XR/XR chest 1V portable [id number] IMPRESSION: Mild cardiomegaly with questionable mild pulmonary vascular congestion right lung.
--- NOTE | 2022-09-05 14:34 | ECG_ITS ---
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 Measurements Intervals [place] Rate: 72 P: 53 TX: 165 QRS: 60 QRSD: 84 T: 59 QT: 380 QTc: 417 Interpretive Statements SINUS RHYTHM Compared to ECG 06/14/2022 12:18:20 T-wave abnormality no longer present Electronically Signed On 09-06-2022 8:53:46 TOP STITCHER by Kavon Gao M.D. [id number]
--- NOTE | 2022-09-05 14:38 | W.ED.SOB ---
HPI - SOB/Dyspnea General: Chief Complaint: Shortness of Breath/Dyspnea Stated Complaint: Weakness, Fever, SOB Time Seen by Provider: 09/05/22 14:32 Source: patient Mode of arrival: ambulatory Limitations: no limitations History of Present Illness: HPI Narrative: 71-year-old male states that over the last 5 to 6 days has had cough along with fever and body aches he states that he had seen urgent care last week was given a prescription azithromycin he is finished and states he said no improvement states he had increasing cough and shortness of breath he is febrile here over 102 he is requiring 2 L of oxygen here he does not wear oxygen at home has a history of CHF denies any vomiting or diarrhea denies any pain. Associated symptoms: Reports fever(s); Deny abdominal pain, chest pain, nausea or vomiting Review of Systems Const: Reports: fever(s), chills and malaise Eyes: Denies: blurry vision or eye discomfort ENMT: Denies: throat pain or dental pain Card: Denies: chest pain Resp: Reports: dyspnea and non-productive cough GI: Denies: abdominal pain, nausea, vomiting or diarrhea : Denies: dysuria Musc: Denies: neck pain or back pain Skin/Breast: Denies: rash Neuro: Denies: headache(s) Psych: Denies: depression Joshua/Lymph: Denies: easy bruising All/Imm: Denies: urticaria PFSH ED PFSH: Medical History Atrial fibrillation with rapid ventricular response CAD (coronary artery disease) of artery bypass graft Delete CAD, multiple vessel Diabetes mellitus History of non-ST elevation myocardial infarction (NSTEMI) History of stroke HTN (hypertension) Hyperlipidemia Hypertensive urgency Paroxysmal atrial fibrillation Pyelonephritis URI with cough and congestion Surgical History S/P PTCA (percutaneous transluminal coronary angioplasty) Family History Brother Heart disease Social History Smoking and tobacco status: former smoker Alcohol intake: never Physical Exam Const: COMMON NORMALS: patient oriented x3 GENERAL APPEARANCE: ill appearing HENMT: COMMON NORMALS: normocephalic and atraumatic HEAD & SCALP: normocephalic and atraumatic Eye: COMMON NORMALS: Equal, round and reactive pupils present and EOMs intact bilaterally PUPIL: Yes Equal, round and reactive pupils present Neck/C-Spine: COMMON NORMALS: full ROM and supple Chest: COMMONS NORMALS: normal inspection of the chest and normal palpation of entire chest wall Resp: COMMON NORMALS: No retractions and No use of accessory muscles AUSCULTATION: rales Cardio: COMMON NORMALS: regular rate, regular rhythm and No murmurs present (Cardio) RATE: regular rate RHYTHM: regular rhythm GI: COMMON NORMALS: Normal to inspection, nondistended, normoactive bowel sounds present, Soft to palpation, non-tender and no masses PALPATION: Yes Soft to palpation Extremity: COMMON NORMALS: normal to inspection and full ROM Neuro: COMMON NORMALS: patient oriented x3, moves all extremities and no focal motor deficits Psych: COMMON NORMALS: mental status grossly normal, Normal thought process present and cooperative THOUGHT PROCESS: Normal thought process present Skin: COMMON NORMALS: no rashes or lesions noted and no wounds GENERAL SKIN EXAM: no rashes or lesions noted Course Vital Signs: Vital signs: Vital Signs Temperature 102.8 F H 09/05/22 14:33 Pulse Rate 69 09/05/22 15:25 Respiratory Rate 22 H 09/05/22 14:59 Blood Pressure 175/76 09/05/22 15:25 Pulse Oximetry 92 09/05/22 15:25 Oxygen Delivery Me thod 09/05/22 15:20 Oxygen Flow Rate 2 09/05/22 14:59 MDM - SOB/Dyspnea Medical Decision Making Patient presents here with cough fever he does have a right lower lobe pneumonia he is requiring 2 L of oxygen here his blood pressures have been normal COVID flu are negative will admit this time for IV antibiotics. Lab Data 09/05/22 15:12 09/05/22 15:12 Labs/Radiology: Radiology Impressions Chest X-Ray 09/05/22 14:34 IMPRESSION: Mild cardiomegaly with questionable mild pulmonary vascular congestion right lung. Laboratory Results WBC 7.4 10^3/uL (4.0-10.0) 09/05/22 15:12 RBC 4.41 10^6/uL (4.1-5.3) 09/05/22 15:12 Hgb 12.6 g/dL (11.7-16.6) 09/05/22 15:12 Hct 37.3 % (42.0-52.0) L 09/05/22 15:12 MCV 84.6 fl (80-94) 09/05/22 15:12 MCH 28.6 pg (28.0-34.0) 09/05/22 15:12 MCHC 33.8 g/dL (30.0-36.0) 09/05/22 15:12 RDW 13.6 % (12.1-15.1) 09/05/22 15:12 Plt Count 178 10^3/cmm (130-400) 09/05/22 15:12 MPV 10.6 fL (7.4-10.4) H 09/05/22 15:12 Neut % (Auto) 82.5 % 09/05/22 15:12 Lymph % (Auto) 7.1 % 09/05/22 15:12 [place] % (Auto) 8.5 % 09/05/22 15:12 Eos % (Auto) 1.1 % 09/05/22 15:12 Baso % (Auto) 0.3 % 09/05/22 15:12 Neut # (Auto) 6.12 10^3/uL (1.8-7.7) 09/05/22 15:12 Lymph # (Auto) 0.5 10^3/uL (0.8-4.8) L 09/05/22 15:12 [place] # (Auto) 0.6 10^3/uL (0.2-0.9) 09/05/22 15:12 Eos # (Auto) 0.1 10^3/uL (0.0-0.8) 09/05/22 15:12 Baso # (Auto) 0.0 10^3/uL (0.0-0.1) 09/05/22 15:12 Nucleated RBC % (auto) 0 % 09/05/22 15:12 Nucleated RBCs # 0.0 /100WBC 09/05/22 15:12 PT 27.10 SECONDS (12.1-14.9) H 09/05/22 15:12 INR 2.41 (0.8-1.2) H 09/05/22 15:12 Sodium 128 mmol/L (136-145) L 09/05/22 15:12 Potassium 3.9 mmol/L (3.5-5.1) 09/05/22 15:12 Chloride 92 mmol/L (98-107) L 09/05/22 15:12 Carbon Dioxide 25 mmol/L (22-29) 09/05/22 15:12 Anion Gap 14.9 (5-19) 09/05/22 15:12 BUN 19 mg/dL (8-23) 09/05/22 15:12 Creatinine 1.0 mg/dL (0.7-1.2) 09/05/22 15:12 GFR Calculation Not Reportable 09/05/22 15:12 Glucose 176 mg/dL (65-115) H 09/05/22 15:12 POC Glucose 178 mg/dL (70-110) H 09/05/22 15:21 Calculated Osmolality 273 mOsm/kg (285-295) L 09/05/22 15:12 Lactic Acid 1.4 mmol/L (0.5-2.2) 09/05/22 15:12 Calcium 9.5 mg/dL (8.5-10.5) 09/05/22 15:12 Magnesium 1.8 mg/dL (1.7-2.3) 09/05/22 15:12 Total Bilirubin 1.6 mg/dL (0.15-1.2) H 09/05/22 15:12 AST 18 U/L (0-40) 09/05/22 15:12 ALT 26 U/L (0-41) 09/05/22 15:12 Alkaline Phosphatase 69 U/L (40-130) 09/05/22 15:12 Troponin T Baseline 27 ng/L (0-15) H 09/05/22 15:12 Total Protein 6.4 g/dL (6.6-8.7) L 09/05/22 15:12 Albumin 4.3 g/dL (3.5-5.2) 09/05/22 15:12 Globulin 2.1 g/dL (1.3-4.6) 09/05/22 15:12 Influenza Type A Ag Negative (Negative) 09/05/22 14:48 Influenza Type B Ag Negative (Negative) 09/05/22 14:48 SARS-CoV-2 Ag (Rapid) Negative (Negative) 09/05/22 14:48 EKG Data EKG 1: I personally reviewed and interpreted this EKG as follows: EKG Interpretation Date: 09/05/22 EKG interpretation time: 14:42 Interpretation: nsr hr [address] or twave abnormalities qrs 84 qtc 404 Discharge Plan Discharge Patient Disposition: Admitted As Inpatient Clinical Impression: Pneumonia, Acute respiratory failure with hypoxemia Condition: Stable Coding Level of Care Code ED Continuous Yarn Dyeing Machine Operator for Samantha Chu
[2022-09-05] MEDS: acetaminophen 325 mg Tablet 650 MG PO (14:57)
[2022-09-05] MEDS: cefTRIAXone 1,000 MG in sodium chloride 0.9% (plus) 50 ML 100 MG IV (15:16)
--- NOTE | 2022-09-05 15:23 | ECG_ITS ---
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 Measurements Intervals [place] Rate: 68 P: 50 CO: 155 QRS: 62 QRSD: 90 T: 55 QT: 410 QTc: 437 Interpretive Statements SINUS RHYTHM Compared to ECG 09/05/2022 14:42:07 No significant changes Electronically Signed On 09-06-2022 8:53:40 DISCIPLINARY HEARING OFFICER by Kavon Gao M.D. [id number]
[2022-09-05 15:26] LABS: Glucose Point of Care 178 mg/dL (70-110)
[2022-09-05 15:28] LABS: Basophils % 0.3 %; Eosinophils # 0.1 10^3/uL (0.0-0.8); Eosinophils % 1.1 %; Hematocrit 37.3 % (42.0-52.0); Hemoglobin 12.6 g/dL (11.7-16.6); Lymphocytes # 0.5 10^3/uL (0.8-4.8); Lymphocytes % 7.1 %; Mean Corpuscular HGB Conc 33.8 g/dL (30.0-36.0); Mean Corpuscular Hemoglobin 28.6 pg (28.0-34.0); Mean Corpuscular Volume 84.6 fl (80-94); Mean Platelet Volume 10.6 fL (7.4-10.4); Monocytes # 0.6 10^3/uL (0.2-0.9); Monocytes % 8.5 %; Neutrophils # 6.12 10^3/uL (1.8-7.7); Neutrophils % 82.5 %; Nucleated Red Blood Cells % 0 %; Platelet Count 178 10^3/cmm (130-400); Red Blood Count 4.41 10^6/uL (4.1-5.3); Red Cell Distribution Width 13.6 % (12.1-15.1); White Blood Count 7.4 10^3/uL (4.0-10.0)
[2022-09-05 15:41] LABS: INR 2.41 (0.8-1.2)
[2022-09-05 15:52] LABS: Lactic Sepsis W/Reflex 1.4 mmol/L (0.5-2.2)
[2022-09-05 15:53] LABS: Alanine Aminotransferase 26 U/L (0-41); Albumin Level 4.3 g/dL (3.5-5.2); Alkaline Phosphatase 69 U/L (40-130); Anion Gap 14.9 (5-19); Aspartate Amino Transferase 18 U/L (0-40); Blood Urea Nitrogen 19 mg/dL (8-23); Calcium 9.5 mg/dL (8.5-10.5); Carbon Dioxide 25 mmol/L (22-29); Chloride 92 mmol/L (98-107); Globulin 2.1 g/dL (1.3-4.6); Glucose 176 mg/dL (65-115); Magnesium 1.8 mg/dL (1.7-2.3); Osmolality Calculated 273 mOsm/kg (285-295); Potassium 3.9 mmol/L (3.5-5.1); Sodium 128 mmol/L (136-145); Total Bilirubin 1.6 mg/dL (0.15-1.2); Total Protein 6.4 g/dL (6.6-8.7)
[2022-09-05 15:54] LABS: Troponin(5th) Baseline 27 ng/L (0-15)
[2022-09-05 16:07] LABS: Influenza A by IFA Negative (Negative); Influenza B by IFA Negative (Negative); SARS Covid-2 Antigen Negative (Negative)
[2022-09-05] MEDS: azithromycin 500 MG in sodium chloride 0.9% 250 ML 250 MG IV (16:07)
--- NOTE | 2022-09-05 16:51 | USCV_ITS ---
Mac Pacheco Age: 72 Gender: M : 1950 Exam Date: 09/05/2022 17:09 Ordering Phys: Andrés Rodrigeuz MD Technologist: KORI [place] [facility] [place]: afib BP: / HR: Rhythm: Sinus Technical Quality: Adequate MEASUREMENTS (Male / Female) Normal Values FINDINGS Left Ventricle This is a limited study. Limited 2D examination, no M-mode and limited Doppler examination. The ventricle is normal in size and function. Ejection fraction 60%. Diastolic function not evaluated. Right Ventricle The right ventricle is normal in size and function. Right Atrium The right atrium is normal in size. Left Atrium The left atrium is normal in size. Mitral Valve Structurally normal mitral valve. Trace mitral valve regurgitation. Aortic Valve Structurally normal aortic valve without significant sclerosis or stenosis. There is no aortic regurgitation. Tricuspid Valve Structurally normal tricuspid valve. Trace tricuspid valve regurgitation. Pulmonic Valve Pulmonic valve not well visualized. Pericardium Normal pericardium without effusion. Aorta Normal ascending aorta dimension. IVC The inferior vena cava appears normal. CONCLUSIONS This is a limited study. Limited 2D examination, no M-mode and limited Doppler examination. The ventricle is normal in size and function. Ejection fraction 60%. Diastolic function not evaluated. Structurally normal mitral valve. Trace mitral valve regurgitation. When compared to the previous study done 08/12/2017, there has been no change. Dr. Jose Cruz Ledesma MD (Electronically Signed) Final Date: 06 September 2022 10:24 S
--- NOTE | 2022-09-05 16:51 | CTR_ITS ---
PROCEDURE INFORMATION: Exam: CT Chest Without Contrast; Diagnostic Exam date and time: 09/05/2022 5:27 PM Age: 72 years old Clinical indication: Condition or disease; Lung condition and disease; Copd; Additional info: Copd/pna TECHNIQUE: Imaging protocol: Diagnostic computed tomography of the chest without contrast. Radiation optimization: All CT scans at this facility use at least one of these dose optimization techniques: automated exposure control; mA and/or kV adjustment per patient size (includes targeted exams where dose is matched to clinical indication); or iterative reconstruction. Other protocol: This patient has received [address] and 0 known cardiac nuclear medicine studies in the 12 months prior to the current study. COMPARISON: CR (CHEST, ) 09/05/2022 2:39 PM RADIATION DOSE METRICS: Total DLP (mGy-cm): 579.24 FINDINGS: Thyroid: There is generalized enlargement of the thyroid gland with multiple nodules partially visualized. Lungs: There is multiple indistinct peribronchial nodular opacities right mid lung zone and throughout the left lower lobe representing infectious bronchiolitis and multifocal pneumonia. There are small biapical ground-glass opacities more nonspecific but presumed infectious in nature. Pleural spaces: Unremarkable. No pneumothorax. No pleural effusion. Heart: Heart is mildly enlarged. Moderate calcification of coronary arteries. No significant pericardial effusion. Lymph nodes: There are multiple small mediastinal lymph nodes likely benign by size criteria and chronic granulomatous calcifications within the mediastinum. Vasculature: There are scattered atherosclerotic changes of the thoracic aorta. There is no aortic aneurysm. Gallbladder and bile ducts: There are multiple gallstones in the dependent portion of gallbladder partially visualized. Is Bones/joints: There are moderate multilevel degenerative changes with anterolateral endplate osteophytes throughout the thoracic spine. Soft tissues: Unremarkable. CT/CT chest wo con [id number] IMPRESSION: Findings most consistent with multifocal pneumonia involving the right mid lung zone and left lower lobe. Moderate generalized enlargement of the thyroid gland with multiple nodules. Recommend follow-up nonemergent thyroid ultrasound exam for further assessment. COMMENTS: Consistent with the [employer]'s Incidental Findings Committee white paper (J Am Vero Radiol 2015): In patients aged 35 years and older with an incidental thyroid nodule equal to or greater than 1.[address], MRI or extrathyroidal US, further evaluation with dedicated thyroid US is recommended for patients with normal life expectancy and without comorbidities. For smaller nodules without suspicious features, no further evaluation or follow up is recommended.
--- NOTE | 2022-09-05 16:53 | PM.HP ---
Providers/Chief Complaint Primary Care Provider: Joo Lugo DO Chief Complaint: Weakness, Fever, SOB History of Present Illness Mac Pacheco is a 72 year old male with past medical history of atrial fibrillation with rapid ventricular response on chronic Coumadin, diastolic heart failure, hypertension, type 2 diabetes mellitus, CAD presents to the ER today with difficulty in breathing and cough along with fever which has been getting worse since Tuesday. After the patient he went to his primary care provider on and was given erythromycin but as it was not helping him came to the ER today. In the ER he was found to be requiring up to 2 L of oxygen supplementation he was found to have fever of more than 102.8 Fahrenheit. Review of Systems General: Reports: 10 or more systems reviewed and unremarkable except in HPI and below Const: Denies: fever(s), chills, body aches, change in appetite, change in weight, malaise, night sweats, diaphoresis, change in sleep pattern, daytime sleepiness or snoring Eyes: Denies: change in vision, blurry vision, photophobia, eye discomfort or eye discharge ENMT: Denies: throat pain, enlarged tonsils, hoarseness, mouth pain, oral sores, dry mouth, tinnitus, nasal congestion or post nasal drip Card: Denies: chest pain, palpitations, irregular heart rhythm, edema, swelling of feet/ankles, lightheadedness, syncope, pre-syncope, dyspnea on exertion, orthopnea, leg pain with exertion or acrocyanosis Resp: Denies: dyspnea, productive cough, non-productive cough, wheezing, stridor, pain on inspiration, change in phlegm color, hemoptysis or chest congestion GI: Denies: abdominal pain, nausea, vomiting, hematemesis, coffee ground emesis, dysphagia, heartburn, diarrhea, constipation, bloating, GI cramping, change in bowel habits, pain on defecation, hematochezia or melena : Denies: flank pain, difficulty urinating, dysuria, urinary frequency, urinary urgency, urinary hesitancy, urinary dribbling, difficulty starting urination, change in urine stream, nocturia or hematuria Musc: Denies: neck pain, back pain, extremity pain, joint pain, joint swelling, joint redness, joint stiffness or limited range of motion Neuro: Denies: headache(s), numbness in extremities, weakness in extremities, sensory changes, lack of coordination, difficulty walking, frequent falls, dizziness, vertigo, confusion, Slurred speech present, difficulty communicating thoughts or seizure-like activity Psych: Denies: anxiety, depression, mood swings, panic attacks, hopelessness or irritability Endo: Denies: polyuria, polydipsia, tired all the time, cold intolerance, excessive sweating, flushing or heat intolerance Joshua/Lymph: Denies: easy bruising or easy bleeding All/Imm: Denies: tongue swelling, facial swelling or acute wheezing Medications/Allergies Home Medications Medication Instructions Recorded Confirmed Last Taken Type docusate sodium 100 mg capsule 100 mg PO BEDTIME 08/27/19 09/03/22 Unknown History metformin 500 mg tablet 1,000 mg PO BID 08/27/19 09/03/22 05/15/22 History fve-Qo-xxy-poafd-eqgt-su-Zn-Cu 1 tab PO DAILY 08/27/19 09/03/22 05/15/22 History [Prostate Control] nateglinide 120 mg tablet 120 mg PO TID #270 tabs 05/10/22 09/03/22 05/15/22 Rx hydrochlorothiazide 12.5 mg tablet 12.5 mg PO BID 05/15/22 09/03/22 05/15/22 History triamcinolone acetonide 0.5 % 1 applic topical BID for 05/18/22 09/03/22 Unknown Rx topical cream dermatitis #15 grams warfarin 3 mg tablet 3 mg PO DAILY 06/12/22 09/03/22 Unknown History losartan 100 mg tablet 100 mg PO DIRECTED 06/14/22 09/03/22 Unknown History atorvastatin 20 mg tablet 20 mg PO DAILY for cholesterol #90 06/22/22 09/03/22 Unknown Rx tabs tamsulosin 0.4 mg capsule 0.4 mg PO DAILY for urination #90 06/22/22 09/03/22 Unknown Rx caps amiodarone 200 mg tablet (Pacerone) 200 mg PO .COMPLEX #90 tabs 07/09/22 09/03/22 Unknown Rx diltiazem HCl 300 mg 300 mg PO DAILY #90 caps 07/09/22 09/03/22 Unknown Rx capsule,extended release 24 hr metoprolol tartrate 25 mg tablet 25 mg PO BID@0900,2100 #180 tabs 07/09/22 09/03/22 Unknown Rx azithromycin 250 mg tablet See Rx Instructions PO .COMPLEX #6 09/03/22 09/03/22 Unknown Rx tabs guaifenesin 600 mg tablet, 600 mg PO BID PRN congestion/cough 09/03/22 09/03/22 Unknown Rx extended release 12 hr #20 tabs Allergies Allergy/AdvReac Type Severity Reaction Status Date / Time levofloxacin [From Levaquin] Allergy Intermediate Unknown Verified 09/03/22 10:24 metoprolol AdvReac Intermediate Bradycardia Verified 09/03/22 10:24 trazodone Allergy Intermediate Unknown Uncoded 09/03/22 10:24 PFSH Acute PFSH: Medical History Atrial fibrillation with rapid ventricular response CAD (coronary artery disease) of artery bypass graft Delete CAD, multiple vessel Diabetes mellitus History of non-ST elevation myocardial infarction (NSTEMI) History of stroke HTN (hypertension) Hyperlipidemia Hypertensive urgency Paroxysmal atrial fibrillation Pyelonephritis URI with cough and congestion Surgical History S/P PTCA (percutaneous transluminal coronary angioplasty) Family History Brother Heart disease Social History Smoking and tobacco status: former smoker Alcohol intake: never Vitals/I&O/Wt Last Vital Signs Temp 102.8 F H 09/05/22 14:33 Pulse 72 09/05/22 16:35 Resp 9 L 09/05/22 16:35 BP 162/73 09/05/22 16:35 Pulse Ox 97 09/05/22 16:35 O2 Del Method 09/05/22 15:40 O2 Flow Rate 2 09/05/22 15:40 09/05/22 09/05/22 09/05/22 06:59 14:59 22:59 Intake Total 50 / 50 Balance 50 / 50 Weight last 48 hrs Weight 97.522 kg Physical Exam Narrative: General: No acute distress, AO x3, NC oxygen supplementation HEENT: PERRLA, pupils bilaterally equal and reactive Chest: Bilateral bronchial breath sounds with occasional rhonchi and fine crackles present at bases CVS: S1-S2 regular, no murmurs, no tachycardia, no gallops, no rubs Abdomen: Soft, nontender, no organomegaly, bowel sounds present, morbidly obese Neuro: No focal deficits, no facial deformity, AO x3, power 5/5 in all limbs Data 09/05/22 15:12 09/05/22 15:12 Micro: Microbiology 09/05/22 15:53 Blood Culture - Preliminary Blood SPECIMEN COLLECTED 09/05/22 15:12 Blood Culture - Preliminary Blood SPECIMEN COLLECTED A&P Assessment and plan (1) Hypoxia: (2) Pneumonia: (3) Acute congestive heart failure with left ventricular diastolic dysfunction: (4) Type 2 diabetes mellitus: Qualifiers: Diabetes mellitus complication status: with hyperglycemia Diabetes mellitus buttermaker continuous churn insulin use: without senior living use Qualified Code(s): E11.65 - Type 2 diabetes mellitus with hyperglycemia (5) Paroxysmal atrial fibrillation: (6) CAD, multiple vessel: Plan Hypoxia in setting of pneumonia and diastolic congestive heart failure: Check sputum culture, urine Legionella, bacterial antigen, procalcitonin, MRSA swab, respiratory viral panel. For now start patient on azithromycin and ceftriaxone for community-acquired pneumonia. Will de-escalate antibiotics as per culture results. CT chest without contrast. Oxygen supplementation keeping saturation over 92%. Ipratropium, Xopenex every 6 hours, budesonide twice daily. Incentive spirometry. IV Lasix 40 mg daily. Strict input of charting, daily weight. Atrial fibrillation: Rate controlled. Continue with home dose of Cardizem, beta-tamia, amiodarone. Continue home dose of warfarin. Currently therapeutic. Type 2 diabetes mellitus: Continue with insulin sliding scale. Full code. Carb consistent cardiac diet. Protonix for PUD prophylaxis Warfarin will suffice for DVT prophylaxis Attestations Medical Necessity Statement*: Admission for more than 2 midnights for management of hypoxia in setting of pneumonia, congestive heart failure, atrial fibrillation and Moderate Time for a total of 60 minutes, includes reviewing past or interval history, examining/interviewing patient, placing orders, counseling patient/family/other support, updating patient/family/other support, discussing plan of care with staff, communicating with other healthcare providers, documenting encounter and coordinating care Diagnoses Hypoxia R09.02 Pneumonia J18.9 Acute congestive heart failure with left ventricular diastolic dysfunction I50.31 Type 2 diabetes mellitus E11.65 Diabetes mellitus complication status: with hyperglycemia Diabetes mellitus buttermaker continuous churn insulin use: without senior living use Paroxysmal atrial fibrillation I48.0 CAD, multiple vessel I25.10
--- NOTE | 2022-09-05 17:14 | ECG_ITS ---
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 Measurements Intervals [place] Rate: 76 P: 66 SC: 162 QRS: 70 QRSD: 93 T: 50 QT: 397 QTc: 447 Interpretive Statements SINUS RHYTHM Compared to ECG 09/05/2022 15:23:20 No significant changes Electronically Signed On 09-06-2022 11:23:33 METAL SPINNER by Kavon Gao M.D. [id number]
[2022-09-05 17:23] LABS: Iron 40 ug/dL (59-158); Total Iron Binding Capacity 221 mcg/dl; Unsaturated Iron Binding 181 ug/dL (112-347)
[2022-09-05 17:34] LABS: NT Pro B Type Natriuretic Pept 413 pg/mL (0-125); Thyroid Stimulating Hormone 0.13 uIU/mL (0.27-4.20)
[2022-09-05 17:38] LABS: Procalcitonin 0.08 ng/mL (0-0.5); Vitamin B12 556 pg/mL (232-1245)
[2022-09-05 18:26] LABS: Potassium, Radom Urine 56 mmol/L; Urine Random Chloride 86 mmol/L; Urine Random Sodium 79 mmol/L
[2022-09-05 18:47] LABS: Protein Urine 1+ (Negative); Urine Appearance Clear (CLEAR); Urine Color Yellow (Yellow); pH Urine 5 (5-7)
[2022-09-05 18:48] LABS: Add Urine Microscopic? YES; Bilirubin Urine Neg (Negative); Blood Urine 2+ (Negative); Glucose Urine UA 2+ (Normal); Ketones Urine Negative (Negative); Leukocyte Esterase Urine Negative (Negative); Nitrate Urine Negative (Negative); Urobilinogen Urine Norm (Negative)
[2022-09-05 18:50] LABS: Add Urine Culture? No; RBC Urine RARE /hpf (0-2); Squamous Epithelial Cell Urine RARE /hpf (0-5)
[2022-09-05] MEDS: docusate sodium 100 mg Capsule PO (19:02)
[2022-09-05] MEDS: ferrous gluconate 324 mg Tablet PO (19:02)
[2022-09-05 19:14] LABS: Troponin 5 2HR 28.93 ng/L (0-15)
[2022-09-05 19:15] LABS: Troponin 5 2HR Delta 1.93 ABS# (0-10)
[2022-09-05] MEDS: budesonide 0.5 mg/2 mL Neb INHALATION (20:39)
[2022-09-05] MEDS: ipratropium 0.5 mg/2.5 mL Neb INHALATION (20:39)
[2022-09-05] MEDS: levalbuterol 0.63 mg/3 mL Neb INHALATION (20:40)
[2022-09-05] MEDS: famotidine 20 mg/2 mL INJ IVP (20:59)
[2022-09-05] MEDS: metoprolol tartrate 25 mg Tablet PO (20:59)
[2022-09-05] MEDS: FUROsemide 10 mg/mL SDV 4mL 40 MG IVP (20:59)
[2022-09-05 21:06] LABS: Troponin 5 6HR 29.11 ng/L (0-15)
--- NOTE | 2022-09-05 21:06 | ECG_ITS ---
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 Measurements Intervals [place] Rate: 83 P: 51 MO: 144 QRS: 63 QRSD: 94 T: 58 QT: 374 QTc: 440 Interpretive Statements SINUS RHYTHM Compared to ECG 09/05/2022 18:29:32 No significant changes Electronically Signed On 09-06-2022 11:23:05 RAC SPECIALIST by Kavon Gao M.D. [id number]
[2022-09-05 21:09] LABS: Troponin 5 6HR Delta 2.11 ng/L (0-12)
[2022-09-05 22:25] LABS: Free T4 Free Thyroxine 1.86 ng/dL (0.82-1.77); T3 Free 3.1 PG/ML (2.0-4.4)
[2022-09-06] VITALS (17 sets, daily range): BP systolic 153–186; BP diastolic 71–79; PULSE 63–101; RESP 16–18; TEMP 36.9–37.7; O2SAT 91–95
[2022-09-06] MEDS: hyDRALAzine 20 mg/mL INJ 1 mL 5 MG IVP ×4 (00:24→23:45)
[2022-09-06 01:13] LABS: Glucose Point of Care 242 mg/dL (70-110)
[2022-09-06] MEDS: levalbuterol 0.63 mg/3 mL Neb INHALATION ×3 (02:19→13:15)
[2022-09-06] MEDS: ipratropium 0.5 mg/2.5 mL Neb INHALATION ×3 (02:19→13:15)
[2022-09-06 04:57] LABS: Basophils % 0.3 %; Hematocrit 38.4 % (42.0-52.0); Hemoglobin 12.8 g/dL (11.7-16.6); Lymphocytes # 0.4 10^3/uL (0.8-4.8); Lymphocytes % 6.5 %; Mean Corpuscular HGB Conc 33.3 g/dL (30.0-36.0); Mean Corpuscular Hemoglobin 27.9 pg (28.0-34.0); Mean Corpuscular Volume 83.8 fl (80-94); Mean Platelet Volume 10.5 fL (7.4-10.4); Monocytes # 0.5 10^3/uL (0.2-0.9); Monocytes % 7.5 %; Neutrophils % 85.2 %; Nucleated Red Blood Cells % 0 %; Platelet Count 179 10^3/cmm (130-400); Red Blood Count 4.58 10^6/uL (4.1-5.3); Red Cell Distribution Width 13.4 % (12.1-15.1); White Blood Count 6.6 10^3/uL (4.0-10.0)
[2022-09-06 05:09] LABS: INR 2.18 (0.8-1.2)
[2022-09-06 05:14] LABS: Alanine Aminotransferase 24 U/L (0-41); Albumin Level 4.1 g/dL (3.5-5.2); Alkaline Phosphatase 63 U/L (40-130); Anion Gap 19.2 (5-19); Aspartate Amino Transferase 18 U/L (0-40); Blood Urea Nitrogen 16 mg/dL (8-23); Carbon Dioxide 25 mmol/L (22-29); Chloride 91 mmol/L (98-107); Glucose 213 mg/dL (65-115); Magnesium 1.7 mg/dL (1.7-2.3); Osmolality Calculated 282 mOsm/kg (285-295); Phosphorus 3.1 mg/dL (2.5-4.5); Potassium 3.2 mmol/L (3.5-5.1); Sodium 132 mmol/L (136-145); Total Bilirubin 1.4 mg/dL (0.15-1.2); Total Protein 6.1 g/dL (6.6-8.7)
[2022-09-06 05:18] LABS: Chol HDL Ratio 3.47 mg/dL (1.0-5.00); Cholesterol 191 mg/dL (0-200); HDL Cholesterol 55 mg/dL (60-100); LDL Cholesterol Calculated 121 mg/dL (50-129); Triglycerides 73 mg/dL (0-150); VLDL Cholestrol Calculation 15 mg/dL (0-30)
[2022-09-06 05:29] LABS: Estmated Average Glucose 154
[2022-09-06 06:13] LABS: Adenovirus Not Detected (NOT DETECT); Chlamydia Pneumoniae Not Detected (NOT DETECT); Coronavirus 229E,HKU1,NL63,OC4 Not Detected (NOT DETECT); Human Metapneumovirus Detected (NOT DETECT); Human Rhinovirus/Enterovirus Not Detected (NOT DETECT); Influenza A Not Detected (NOT DETECT); Influenza A H1 Not Detected (NOT DETECT); Influenza A H1-2009 Not Detected (NOT DETECT); Influenza A H3 Not Detected (NOT DETECT); Influenza B Not Detected (NOT DETECT); Mycoplasma Pneumoniae Not Detected (NOT DETECT); Parainfluenza Virus Type 1 Not Detected (NOT DETECT); Parainfluenza Virus Type 2 Not Detected (NOT DETECT); Parainfluenza Virus Type 3 Not Detected (NOT DETECT); Parainfluenza Virus Type 4 Not Detected (NOT DETECT); Respiratory Syncytial Virus A Not Detected (NOT DETECT); Respiratory Syncytial Virus B Not Detected (NOT DETECT); SARS-COV-2 Not Detected (NOT DETECT)
--- NOTE | 2022-09-06 07:48 | PC.PHAR ---
pts [facility] [phone] verified pts medications-pts states the pt stop taking atorvastatin 20mg daily 3 weeks go
[2022-09-06] MEDS: dilTIAZem ER (24HR) 300 mg Capsule PO (08:35)
[2022-09-06] MEDS: metoprolol tartrate 25 mg Tablet PO ×2 (08:35→20:45)
[2022-09-06] MEDS: docusate sodium 100 mg Capsule PO ×2 (08:35→17:39)
[2022-09-06] MEDS: amiodarone 200 mg Tablet PO (08:35)
[2022-09-06] MEDS: ferrous gluconate 324 mg Tablet PO ×2 (08:35→17:39)
[2022-09-06] MEDS: tamsulosin 0.4 mg Capsule PO (08:35)
[2022-09-06] MEDS: losartan 50 mg Tablet 100 MG PO (08:35)
[2022-09-06] MEDS: warfarin 3 mg Tablet PO (08:35)
[2022-09-06] MEDS: budesonide 0.5 mg/2 mL Neb INHALATION (09:34)
[2022-09-06] MEDS: famotidine 20 mg/2 mL INJ IVP ×2 (09:39→21:39)
--- NOTE | 2022-09-06 12:02 | PC.CHAP ---
Pastoral Care Encounter/Spiritual Assessment Type of Contact [] Declined land classifier visit [] Patient/Family/Request visit [] Outpatient visit [] Follow-up visit [] Physician referral [] Code/Alert [x] Routine visit [] Staff referral [] Actively dying [] Patient sleeping [x] Family support [] [] Out of room [] Palliative care [] [] Receiving care in room [] Pre-surgical visit [] Trauma [] Long length of stay [] ICU visit [] Other: Relational/Emotional Strength [] Patient feels connected with others/family/visitors/staff [] Distress [] Loneliness/isolation [] Abandonment Spirituality of Patient [x] Person of Pam [] Attends Nondenominational of their Pam [x] Believes in Prayer [] Reads Bible or Jehovah'S Witness materials [] There are Spiritual issues to be addressed Roofing Contractor Interventions [x] Prayer x[] Active listening x[] Non-anxious presence [x Spiritual/emotional support [] Crisis/trauma care [] Spiritual counseling [] Bereavement support [] Provided bereavement packet [] Provided Bible/devotional materials [] Provided toy/stuffed animal, coloring book to patient or family member [] Provided Communion [] Anointing/[place] [] Salvation [x] Completed spiritual assessment [] Other: Impact on Illness or Injury [] Angry [] Fearful [] Anxious [] Often cries [] Exhaustion [] Unable to work [] Unable to attend holiness [] Unable to walk/stand [] Unable to read [] Unable to drive [] Unable to eat/drink [] Unable to sleep [] Unable to be with family [] Patient intubated [] Other: Summary Time spent with patient 10 min
--- NOTE | 2022-09-06 12:48 | PM.PN ---
Subjective Subjective: Seen this morning. No acute events overnight. Resting comfortably in bed. States he feels a little bit better. Vitals/I&O/Wt Last Vital Signs Temp 98.4 F 09/06/22 08:18 Pulse 70 09/06/22 09:38 Resp 18 09/06/22 09:38 BP 156/75 09/06/22 08:35 Pulse Ox 95 09/06/22 09:38 O2 Del Method 09/06/22 09:38 O2 Flow Rate 2.5 09/06/22 09:38 09/05/22 09/06/22 09/06/22 22:59 06:59 14:59 Intake Total 300 / 300 240 / 540 Output Total 500 / 500 Balance 300 / 300 -260 / 40 Weight last 48 hrs Weight 90.832 kg Weight 97.522 kg Weight 97.522 kg Physical Exam Narrative: General: No acute distress, AO x3, NC oxygen supplementation HEENT: EOMI. Chest: Bilateral bronchial breath sounds with occasional rhonchi no crackles appreciated. CVS: S1-S2 regular, no murmurs, no tachycardia, no gallops, no rubs Abdomen: Soft, nontender, bowel sounds present, morbidly obese Neuro: Grossly nonfocal. 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 Urine Legionella negative, bacterial antigen negative, procalcitonin, MRSA swab negative, respiratory viral panel shows positive for human metapneumovirus.. Continue ceftriaxone azithromycin empirically to cover for [address] chest without contrast. Oxygen supplementation keeping saturation over 92%. Ipratropium, Xopenex every 6 hours, budesonide twice daily. Incentive spirometry. IV Lasix 40 mg daily. Strict input of charting, daily weight. Atrial fibrillation: Rate controlled. Continue with home dose of Cardizem, beta-tamia, amiodarone. Continue home dose of warfarin. Currently therapeutic. Type 2 diabetes mellitus: Continue with insulin sliding scale. Enlarged thyroid gland with multiple nodules: We will order thyroid ultrasound Full code. Carb consistent cardiac diet. Protonix for PUD prophylaxis Warfarin will suffice for DVT prophylaxis Attestations Medical Necessity Statement*: Admission for more than 2 midnights for management of hypoxia in setting of pneumonia, congestive heart failure, atrial fibrillation Other Coding Information Focused coding review requested Diagnoses Hypoxia R09.02 Pneumonia J18.9 Acute congestive heart failure with left ventricular diastolic dysfunction I50.31 Type 2 diabetes mellitus E11.65 Diabetes mellitus complication status: with hyperglycemia Diabetes mellitus termite technician insulin use: without fpc use Paroxysmal atrial fibrillation I48.0 CAD, multiple vessel I25.10 Time Spent (min) 25
[2022-09-06] MEDS: cefTRIAXone 1,000 MG in sodium chloride 0.9% (plus) 50 ML 100 MG IV (13:27)
[2022-09-07] VITALS (10 sets, daily range): BP systolic 142–179; BP diastolic 65–89; PULSE 63–110; RESP 16–18; TEMP 36.8–37.2; O2SAT 93–97
[2022-09-07] MEDS: temazepam 15 mg Capsule PO (00:06)
--- NOTE | 2022-09-07 03:06 | PC.NURSE ---
emergency call light on and pt observed sitting on the floor, denied pain, denied hitting head, pt stated that he was reaching for toilet paper and was bent down too low and his legs gave up on him, AROM to all extremities, no internal or external rotation noted,PERRL, 2 person assist with standing up while pt holding to grab bars, continue to deny pain, head to toe assessment, no injury noted, pt stated he landed on his buttocks. amb back to bed, bed alarm initiated, pt educated to use call light when needing to amb, pt agreed, Dr. Orozco notified. family will be notified in AM. continue to monitor. VS 99.1, 85, 17, 187/64, 92% 2.5 L
[2022-09-07] MEDS: levalbuterol 0.63 mg/3 mL Neb INHALATION ×2 (03:14→09:07)
[2022-09-07] MEDS: ipratropium 0.5 mg/2.5 mL Neb INHALATION ×2 (03:14→09:07)
[2022-09-07 05:29] LABS: Basophils % 0.3 %; Eosinophils % 0.2 %; Hematocrit 37.1 % (42.0-52.0); Hemoglobin 12.7 g/dL (11.7-16.6); Lymphocytes # 0.4 10^3/uL (0.8-4.8); Lymphocytes % 7.6 %; Mean Corpuscular HGB Conc 34.2 g/dL (30.0-36.0); Mean Corpuscular Hemoglobin 28.5 pg (28.0-34.0); Mean Corpuscular Volume 83.4 fl (80-94); Mean Platelet Volume 10.9 fL (7.4-10.4); Monocytes # 0.6 10^3/uL (0.2-0.9); Monocytes % 10.5 %; Neutrophils # 4.72 10^3/uL (1.8-7.7); Neutrophils % 81.1 %; Nucleated Red Blood Cells % 0 %; Platelet Count 172 10^3/cmm (130-400); Red Blood Count 4.45 10^6/uL (4.1-5.3); Red Cell Distribution Width 13.5 % (12.1-15.1); White Blood Count 5.8 10^3/uL (4.0-10.0)
[2022-09-07 05:43] LABS: INR 2.35 (0.8-1.2)
[2022-09-07 06:02] LABS: Anion Gap 15.2 (5-19); Blood Urea Nitrogen 21 mg/dL (8-23); Calcium 9.2 mg/dL (8.5-10.5); Carbon Dioxide 28 mmol/L (22-29); Chloride 94 mmol/L (98-107); Glucose 184 mg/dL (65-115); Osmolality Calculated 286 mOsm/kg (285-295); Potassium 3.2 mmol/L (3.5-5.1); Sodium 134 mmol/L (136-145)
[2022-09-07] MEDS: docusate sodium 100 mg Capsule PO (09:03)
[2022-09-07] MEDS: amiodarone 200 mg Tablet PO (09:03)
[2022-09-07] MEDS: dilTIAZem ER (24HR) 300 mg Capsule PO (09:03)
[2022-09-07] MEDS: tamsulosin 0.4 mg Capsule PO (09:03)
[2022-09-07] MEDS: metoprolol tartrate 25 mg Tablet PO (09:03)
[2022-09-07] MEDS: losartan 50 mg Tablet 100 MG PO (09:03)
[2022-09-07] MEDS: ferrous gluconate 324 mg Tablet PO (09:03)
[2022-09-07] MEDS: warfarin 3 mg Tablet PO (09:03)
[2022-09-07] MEDS: FUROsemide 10 mg/mL SDV 4mL 40 MG IVP (09:04)
[2022-09-07] MEDS: famotidine 20 mg/2 mL INJ IVP (09:04)
[2022-09-07] MEDS: budesonide 0.5 mg/2 mL Neb INHALATION (09:07)
--- NOTE | 2022-09-07 09:46 | PC.CHAP ---
Pastoral Care Encounter/Spiritual Assessment Type of Contact [] Declined back joiner visit [] Patient/Family/Request visit [] Outpatient visit [] Follow-up visit [] Physician referral [] Code/Alert [] Routine visit [] Staff referral [] Actively dying [] Patient sleeping [] Family support [] [] Out of room [] Palliative care [] [x] Receiving care in room [] Pre-surgical visit [] Trauma [] Long length of stay [] ICU visit [] Other: Relational/Emotional Strength [] Patient feels connected with others/family/visitors/staff [] Distress [] Loneliness/isolation [] Abandonment Spirituality of Patient [] Person of Pam [] Attends Taoism of their Pam [] Believes in Prayer [] Reads Bible or Evangelical materials [] There are Spiritual issues to be addressed Load Dropper Interventions [] Prayer [] Active listening [] Non-anxious presence [] Spiritual/emotional support [] Crisis/trauma care [] Spiritual counseling [] Bereavement support [] Provided bereavement packet [] Provided Bible/devotional materials [] Provided toy/stuffed animal, coloring book to patient or family member [] Provided Communion [] Anointing/[place] [] Salvation [] Completed spiritual assessment [] Other: Impact on Illness or Injury [] Angry [] Fearful [] Anxious [] Often cries [] Exhaustion [] Unable to work [] Unable to attend yazdanism [] Unable to walk/stand [] Unable to read [] Unable to drive [] Unable to eat/drink [] Unable to sleep [] Unable to be with family [] Patient intubated [] Other: Summary Time spent with patient
--- NOTE | 2022-09-07 11:52 | P.DS_ITS ---
Discharge Providers Date of Admission: 09/05/22 16:15 Date of Discharge: September 07, 2022 Attending Provider at Admission: Andrés Rodriguez MD Attending Provider at Discharge: Rosa Ferraro MD Primary Care Provider: Joo Lugo DO Diagnoses at Discharge Discharge Diagnosis (1) Hypoxia: Status: Acute (2) Pneumonia: Status: Acute (3) Acute congestive heart failure with left ventricular diastolic dysfunction: Status: Resolved (4) Type 2 diabetes mellitus: Status: Acute Qualifiers: Diabetes mellitus complication status: with hyperglycemia Diabetes mellitus intermediate teacher insulin use: without chcf use Qualified Code(s): E11.65 - Type 2 diabetes mellitus with hyperglycemia (5) Paroxysmal atrial fibrillation: Status: Acute (6) CAD, multiple vessel: Status: Acute Reason for Visit Reason for Visit: Weakness, Fever, SOB Brief History: As per Dr. Doreen Watts Shakira Pacheco is a 72 year old male with past medical history of atrial fibrillation with rapid ventricular response on chronic Coumadin, diastolic heart failure, hypertension, type 2 diabetes mellitus, CAD presents to the ER today with difficulty in breathing and cough along with fever which has been getting worse since Tuesday.? After the patient he went to his primary care provider on and was given erythromycin but as it was not helping him came to the ER today.? In the ER he was found to be requiring up to 2 L of oxygen supplementation he was found to have fever of more than 102.8 Fahrenheit. Hospital Course Hospital Course Admitted for pneumonia was placed on ceftriaxone azithromycin in the hospital and discharged home on oral antibiotics. He was also noted to have a low TSH an d high T4. Thyroid ultrasound was done which showed thyroid nodules. For his A-fib he was already on a beta-tamia and had no symptoms from his hyperthyroidism. He was discharged home with appointment with endocrinology at the follow-up. Asymptomatic at discharge. Physical Exam Narrative: General: No acute distress, AO x3, NC oxygen supplementation HEENT: EOMI. Chest: Bilateral bronchial breath sounds with occasional rhonchi no crackles appreciated. CVS: S1-S2 regular, no murmurs, no tachycardia, no gallops, no rubs Abdomen: Soft, nontender, bowel sounds present, morbidly obese Neuro: Grossly nonfocal. Discharge Data Studies Completed and Pending Completed Studies During Hospitalization Category Date Time Status CT chest wo con 75020 Urgent Cat Scan 09/05/22 16:51 Completed XR chest 1V portable [id number] Stat Exams 09/05/22 14:34 Completed CV. echo limited 20013 Routine Ultrasound 09/05/22 16:51 Completed Pending at discharge Category Date Time Status Blood Culture Stat Lab 09/05/22 15:53 Results Prothrombin Time INR AM LABS Lab 09/08/22 04:00 Ordered Sputum Culture and Gram Stain Stat Lab 09/05/22 16:53 Uncollected Radiology Impressions Chest X-Ray 09/05/22 14:34 IMPRESSION: Mild cardiomegaly with questionable mild pulmonary vascular congestion right lung. Chest CT 09/05/22 16:51 IMPRESSION: Findings most consistent with multifocal pneumonia involving the right mid lung zone and left lower lobe. Moderate generalized enlargement of the thyroid gland with multiple nodules. Recommend follow-up nonemergent thyroid ultrasound exam for further assessment. COMMENTS: Consistent with the [employer]'s Incidental Findings Committee white paper (J Am Vero Radiol 2015): In patients aged 35 years and older with an incidental thyroid nodule equal to or greater than 1.[address], MRI or extrathyroidal US, further evaluation with dedicated thyroid US is recommended for patients with normal life expectancy and without comorbidities. For smaller nodules without suspicious features, no further evaluation or follow up is recommended. Laboratory Results WBC 5.8 10^3/uL (4.0-10.0) 09/07/22 04:48 RBC 4.45 10^6/uL (4.1-5.3) 09/07/22 04:48 Hgb 12.7 g/dL (11.7-16.6) 09/07/22 04:48 Hct 37.1 % (42.0-52.0) L 09/07/22 04:48 MCV 83.4 fl (80-94) 09/07/22 04:48 MCH 28.5 pg (28.0-34.0) 09/07/22 04:48 MCHC 34.2 g/dL (30.0-36.0) 09/07/22 04:48 RDW 13.5 % (12.1-15.1) 09/07/22 04:48 Plt Count 172 10^3/cmm (130-400) 09/07/22 04:48 MPV 10.9 fL (7.4-10.4) H 09/07/22 04:48 Neut % (Auto) 81.1 % 09/07/22 04:48 Lymph % (Auto) 7.6 % 09/07/22 04:48 [place] % (Auto) 10.5 % 09/07/22 04:48 Eos % (Auto) 0.2 % 09/07/22 04:48 Baso % (Auto) 0.3 % 09/07/22 04:48 Neut # (Auto) 4.72 10^3/uL (1.8-7.7) 09/07/22 04:48 Lymph # (Auto) 0.4 10^3/uL (0.8-4.8) L 09/07/22 04:48 [place] # (Auto) 0.6 10^3/uL (0.2-0.9) 09/07/22 04:48 Eos # (Auto) 0.0 10^3/uL (0.0-0.8) 09/07/22 04:48 Baso # (Auto) 0.0 10^3/uL (0.0-0.1) 09/07/22 04:48 Nucleated RBC % (auto) 0 % 09/07/22 04:48 Nucleated RBCs # 0.0 /100WBC 09/07/22 04:48 PT 26.60 SECONDS (12.1-14.9) H 09/07/22 04:48 INR 2.35 (0.8-1.2) H 09/07/22 04:48 Sodium 134 mmol/L (136-145) L 09/07/22 04:48 Potassium 3.2 mmol/L (3.5-5.1) L 09/07/22 04:48 Chloride 94 mmol/L (98-107) L 09/07/22 04:48 Carbon Dioxide 28 mmol/L (22-29) 09/07/22 04:48 Anion Gap 15.2 (5-19) 09/07/22 04:48 BUN 21 mg/dL (8-23) 09/07/22 04:48 Creatinine 1.0 mg/dL (0.7-1.2) 09/07/22 04:48 GFR Calculation Not Reportable 09/07/22 04:48 Glucose 184 mg/dL (65-115) H 09/07/22 04:48 POC Glucose 242 mg/dL (70-110) H 09/06/22 01:09 Estimat Average Glucose 154 09/06/22 04:35 Hemoglobin A1c 7.0 % (4.0-6.0) H 09/06/22 04:35 Calculated Osmolality 286 mOsm/kg (285-295) 09/07/22 04:48 Lactic Acid 1.4 mmol/L (0.5-2.2) 09/05/22 15:12 Calcium 9.2 mg/dL (8.5-10.5) 09/07/22 04:48 Phosphorus 3.1 mg/dL (2.5-4.5) 09/06/22 04:35 Magnesium 1.7 mg/dL (1.7-2.3) 09/06/22 04:35 Iron 40 ug/dL (59-158) L 09/05/22 15:12 TIBC 221 mcg/dl 09/05/22 15:12 % Saturation 18.0 % (20-50) L 09/05/22 15:12 Unsat Iron Binding 181 ug/dL (112-347) 09/05/22 15:12 Total Bilirubin 1.4 mg/dL (0.15-1.2) H 09/06/22 04:35 AST 18 U/L (0-40) 09/06/22 04:35 ALT 24 U/L (0-41) 09/06/22 04:35 Alkaline Phosphatase 63 U/L (40-130) 09/06/22 04:35 Troponin T Baseline 27 ng/L (0-15) H 09/05/22 15:12 Troponin T 120 Minute 28.93 ng/L (0-15) H 09/05/22 18:39 Delta Troponin T 1.93 ABS# (0-10) 09/05/22 18:39 Troponin T Hi Sens 6Hr 29.11 ng/L (0-15) H 09/05/22 20:38 Troponin T Hi Sens 6Hr Delta 2.11 ng/L (0-12) 09/05/22 20:38 NT-Pro-B Natriuret Pep 413 pg/mL (0-125) H 09/05/22 15:12 Total Protein 6.1 g/dL (6.6-8.7) L 09/06/22 04:35 Albumin 4.1 g/dL (3.5-5.2) 09/06/22 04:35 Globulin 2.0 g/dL (1.3-4.6) 09/06/22 04:35 Triglycerides 73 mg/dL (0-150) 09/06/22 04:35 Cholesterol 191 mg/dL (0-200) 09/06/22 04:35 LDL Cholesterol, Calc 121 mg/dL (50-129) 09/06/22 04:35 Total VLDL Cholesterol 15 mg/dL (0-30) 09/06/22 04:35 HDL Cholesterol 55 mg/dL (60-100) L 09/06/22 04:35 Cholesterol/HDL Ratio 3.47 mg/dL (1.0-5.00) 09/06/22 04:35 Vitamin B12 556 pg/mL (232-1245) 09/05/22 15:12 Folate 13.0 ng/mL (4.5-32.2) 09/05/22 15:12 Procalcitonin 0.08 ng/mL (0-0.5) 09/05/22 15:12 TSH 0.13 uIU/mL (0.27-4.20) L 09/05/22 15:12 Free T4 1.86 ng/dL (0.82-1.77) H 09/05/22 15:12 Free T3 3.1 PG/ML (2.0-4.4) 09/05/22 15:12 Urine Color Yellow (Yellow) 09/05/22 17:00 Urine Appearance Clear (CLEAR) 09/05/22 17:00 Urine pH 5 (5-7) 09/05/22 17:00 Ur Specific [place] 1.010 (1.005-1.030) 09/05/22 17:00 Urine Protein 1+ (Negative) H 09/05/22 17:00 Urine Glucose (UA) 2+ (Normal) H 09/05/22 17:00 Urine Ketones Negative (Negative) 09/05/22 17:00 Urine Blood 2+ (Negative) H 09/05/22 17:00 Urine Nitrate Negative (Negative) 09/05/22 17:00 Urine Bilirubin Neg (Negative) 09/05/22 17:00 Urine Urobilinogen Norm mg/dL (Negative) 09/05/22 17:00 Ur Leukocyte Esterase Negative (Negative) 09/05/22 17:00 Urine RBC Rare /hpf (0-2) 09/05/22 17:00 Urine WBC None /hpf (0-5) 09/05/22 17:00 Ur Squamous Epith Cells Rare /hpf (0-5) 09/05/22 17:00 Amorphous Sediment Not Reportable 09/05/22 17:00 Urine Bacteria None /hpf (NONE) 09/05/22 17:00 Ur Random Sodium 79 mmol/L 09/05/22 17:00 Ur Random Potassium 56 mmol/L 09/05/22 17:00 Ur Random Chloride 86 mmol/L 09/05/22 17:00 Nasal Influ A H1 2009 PCR Not detected (NOT DETECT) 09/06/22 04:21 Adenovirus (PCR) Not detected (NOT DETECT) 09/06/22 04:21 C. pneumoniae DNA (PCR) Not detected (NOT DETECT) 09/06/22 04:21 Coronavirus 229E (PCR) Not detected (NOT DETECT) 09/06/22 04:21 Human Metapneumovir PCR Detected (NOT DETECT) A 09/06/22 04:21 Influenza A (H1) PCR Not detected (NOT DETECT) 09/06/22 04:21 Influenza A (H3) PCR Not detected (NOT DETECT) 09/06/22 04:21 Influenza Type A Ag Negative (Negative) 09/05/22 14:48 Influenza Type A (PCR) Not detected (NOT DETECT) 09/06/22 04:21 Influenza Type B Ag Negative (Negative) 09/05/22 14:48 Influenza Type B (PCR) Not detected (NOT DETECT) 09/06/22 04:21 M. pneumoniae (PCR) Not detected (NOT DETECT) 09/06/22 04:21 Parainfluenza 1 (PCR) Not detected (NOT DETECT) 09/06/22 04:21 Parainfluenza 2 (PCR) Not detected (NOT DETECT) 09/06/22 04:21 Parainfluenza 3 (PCR) Not detected (NOT DETECT) 09/06/22 04:21 Parainfluenza 4 (PCR) Not detected (NOT DETECT) 09/06/22 04:21 RSV Type A (PCR) Not detected (NOT DETECT) 09/06/22 04:21 RSV Type B (PCR) Not detected (NOT DETECT) 09/06/22 04:21 Entero/Rhino (PCR) Not detected (NOT DETECT) 09/06/22 04:21 SARS-CoV-2 (PCR) Not detected (NOT DETECT) 09/06/22 04:21 SARS-CoV-2 Ag (Rapid) Negative (Negative) 09/05/22 14:48 Vitals Last Vital Signs Temp 98.2 F 09/07/22 08:00 Pulse 110 H 09/07/22 09:11 Resp 18 09/07/22 09:11 BP 153/65 09/07/22 09:03 Pulse Ox 97 09/07/22 09:11 O2 Del Method 09/07/22 09:11 O2 Flow Rate 2 09/07/22 09:11 Discharge Plan Discharge Patient Disposition: Home Condition: Stable Prescriptions: New amoxicillin-pot clavulanate 875-125 mg tablet 1 tab PO BID 12 Days Qty: 24 0RF Continued guaifenesin 600 mg tablet extended release 12hr 600 mg PO BID PRN (Reason: congestion/cough) Qty: 20 0RF nateglinide 120 mg tablet 120 mg PO TID Qty: 270 3RF Rx Instructions: give before meal(s) diltiazem HCl 300 mg capsule,extended release 24hr 300 mg PO DAILY Qty: 90 3RF metoprolol tartrate 25 mg tablet 25 mg PO BID@0900,2100 Qty: 180 3RF Pacerone 200 mg Tablet 200 mg PO QAM Flomax 0.4 mg Capsule 0.4 mg PO QAM metformin 1,000 mg Tablet 1,000 mg PO BID Dulcolax (bisacodyl) 5 mg Tablet,Delayed Release (Dr/Ec) 5 mg PO BEDTIME Mag Complete With P5p & Zinc 1 tab PO DAILY triamcinolone acetonide 0.5 % cream 1 applic topical BID PRN (Reason: for dermatitis) hydrochlorothiazide 12.5 mg tablet 12.5 mg PO BID warfarin 3 mg Tablet 3 mg PO BEDTIME losartan 100 mg Tablet See Rx Instructions .ROUTE .COMPLEX Rx Instructions: take 100mg (1 tab) po qam and 50mg (1/2 tab) po at bedtime Discontinued azithromycin 250 mg tablet See Rx Instructions PO .COMPLEX Qty: 6 0RF Rx Instructions: For 250 mg dose pack: take 500 mg today (day 1), then 250 mg for 4 days (days 2-5) PO No Action methimazole 5 mg tablet 5 mg PO DAILY Qty: 90 2RF Discharge Orders: Discharge Order (Routine); Ordered 09/07/22 Ordered By: Rosa Ferraro Other Ambulatory Orders: US thyroid 65004 (Routine) Timeframe: 1 Week Facility: [facility] - Location: Radiology [facility] Ordered By: Rosa Ferraro Referrals: Mckay Amador MD [Physician] - 09/08/22 2:00 pm Joo Lugo DO [Primary Care Provider] - 09/15/22 10:10 am Discharge Diet: Cardiac Discharge Activity: Resume usual activity Patient Instructions: Amoxicillin (By mouth), Heart Failure (ED), Pneumonia (GEN), CHF Stoplight, Opioid Safety, Pneumonia Stoplight Activity Restrictions/Additional Instructions: Please return to the ER if you have worsening symptoms or new symptoms develop. There are thyroid nodules identified on your CT scan. Please have your thyroid ultrasound done and follow up with primary care doctor. Discharge Attestations Time Spent in Discharge Care*: less than 30 min Quality Metrics Clinical Quality Measures [ No reported AMI, CVA or VTE this stay] Coding Level of Care Code Acute Code for Chg Fwd Diagnoses Hypoxia R09.02 Pneumonia J18.9 Acute congestive heart failure with left ventricular diastolic dysfunction I50.31 Type 2 diabetes mellitus E11.65 Diabetes mellitus complication status: with hyperglycemia Diabetes mellitus intermediate teacher insulin use: without chcf use Paroxysmal atrial fibrillation I48.0 CAD, multiple vessel I25.10
[2022-09-07] MEDS: cefTRIAXone 1,000 MG in sodium chloride 0.9% (plus) 50 ML 100 MG IV (13:04)
[2022-09-07] MEDS: potassium chloride ER 20 mEq Tablet 40 MEQ PO (13:05)
--- NOTE | 2022-09-07 15:01 | US_ITS ---
WS: [id number] ULTRASOUND THYROID TECHNIQUE: Ultrasound of the thyroid. CLINICAL INFORMATION: thyroid nodule. low tsh COMPARISON: None. FINDINGS: Thyroid: Enlarged heterogeneous multinodular thyroid gland likely due to thyroid goiter. Dominant nodules RIGHT mid thyroid measuring 3.5 x 2.9 x 3.7 cm with a complex appearance. Additional hypoechoic nodule RIGHT mid thyroid 1.0 x 1.1 x 1.2 cm. Additional dominant complex nodule LEFT mid thyroid measuring 3.5 x 2.8 x 4.5 cm Right thyroid lobe: 6.9 cm x 4.2 cm x 3.7 cm Left thyroid lobe: 6.2 cm x 4.0 cm x 3.2 cm. Isthmus: 0.4 mm. Cervical lymphadenopathy: None. US/US thyroid [id number] IMPRESSION: 1. Enlarged heterogeneous multinodular thyroid gland likely due to thyroid goi ter. Recommend correlation with thyroid function studies. 2. Dominant complex cystic and solid nodules described above. Largest complex nodules could be sampled with FNA versus 12 month follow-up.
== END 2022-09-07 16:15 | disposition home or self-care (01) | DRG 193 ==
LOC: ER 16:36 → MEDSURG 16:53
PROVIDERS: Admitting Provider Student in an Organized Health Care Education/Training Program; Emergency Provider Emergency Medicine; PCP Family Medicine; Visit Provider Internal Medicine
DX: J18.9 Pneumonia, unspecified organism (principal); I50.33 Acute on chronic diastolic (congestive) heart failure; I11.0 Hypertensive heart disease with heart failure; I48.0 Paroxysmal atrial fibrillation; E11.65 Type 2 diabetes mellitus with hyperglycemia; I25.10 Atherosclerotic heart disease of native coronary artery without angina pectoris; Z98.61 Coronary angioplasty status; E04.2 Nontoxic multinodular goiter; Z79.84 Long term (current) use of oral hypoglycemic drugs; Z79.01 Long term (current) use of anticoagulants; I25.2 Old myocardial infarction; Z86.73 Personal history of transient ischemic attack (TIA), and cerebral infarction without residual deficits; I10 Essential (primary) hypertension; E78.5 Hyperlipidemia, unspecified; Z87.891 Personal history of nicotine dependence
CPT/HCPCS: 36415; 36416; 71045; 71250; 76536; 80048; 80053; 80061; 81001; 82436; 82607; 82746; 82962; 83036; 83540; 83550; 83605; 83735; 83880; 84100; 84133; 84145; 84300; 84439; 84443; 84481; 84484; 85025; 85610; 86403; 87040; 87426; 87449; 87486; 87581; 87633; 87641; 87804; 93005; 93308; 94640; 94760; 96365; 96367; 99285; J0360; J0456; J0696; J1940; J3490; J7050; J7614; J7626; J7644

== ENCOUNTER → 2022-09-08 12:32 | Outpatient (BNVA) | payer MEDICARE, OTHER, SELFPAY | PROVIDERS: PCP Family Medicine; Visit Provider Internal Medicine | DX: E04.1 Nontoxic single thyroid nodule (principal); E04.9 Nontoxic goiter, unspecified; E05.90 Thyrotoxicosis, unspecified without thyrotoxic crisis or storm; Z79.84 Long term (current) use of oral hypoglycemic drugs; I25.10 Atherosclerotic heart disease of native coronary artery without angina pectoris; I10 Essential (primary) hypertension; I48.0 Paroxysmal atrial fibrillation; Z87.891 Personal history of nicotine dependence | CPT/HCPCS: 99204; 99213 ==

== ENCOUNTER → 2022-10-07 12:13 | Outpatient (BNVA) | payer MEDICARE, OTHER, SELFPAY | PROVIDERS: PCP Family Medicine; Visit Provider Family Medicine | DX: N39.0 Urinary tract infection, site not specified (principal) | CPT/HCPCS: 81000; 87077; 87086; 87184 ==

== ENCOUNTER 2022-10-13 08:31 | Outpatient (CLI) | payer MEDICARE, OTHER, SELFPAY ==
--- NOTE | 2022-10-14 09:06 | NM_ITS ---
NOTE: Report was unsigned for reason: Order was edited. Original Signature date and time was: Dictated By: Kurtis Swanson MD Signed By: Kurtis Swanson MD Signed Date/Time: 10/14/22 1033 WS: [id number] NUCLEAR MEDICINE 24 HOUR I-123 THYROID UPTAKE INDICATION: Hyperthyroidism TECHNIQUE: I-123 24 HOUR THYROID UPTAKE WITH PLANAR IMAGING. 126 UCI SULEMA 123 COMPARISON: Ultrasound 09/07/22 FINDINGS: Thyroid ultrasound reviewed. Enlarged heterogeneous multinodular thyroid suspicious for goiter seen on the prior ultrasound. Bilateral complex cystic and solid nodules are visualized. 24 hour thyroid uptake demonstrates extremely low radiotracer uptake in the thyroid measuring 2.14%. Decreased thyroid uptake in the setting of hyperthyroidism can be seen with excess iodine, renal failure, dietary supplements, medications such as amiodarone, and antithyroid medications. Recommend clinical correlation. Specific conditions include subacute or granulomatous thyroiditis and iodine induced thyrotoxicosis. NORMAL 24H THRYOID UPTAKE 8-35% MTDD NM/NM thyroid uptake multi [id number] IMPRESSION: Decreased 2.14% uptake at 24 hours
== END 2022-10-13 08:32 | disposition home or self-care (01) ==
PROVIDERS: PCP Family Medicine; Visit Provider Internal Medicine
DX: E04.1 Nontoxic single thyroid nodule (principal)
CPT/HCPCS: 78014; A9516

== ENCOUNTER → 2022-10-19 13:58 | Outpatient (BNVA) | payer MEDICARE, OTHER, SELFPAY | PROVIDERS: PCP Family Medicine; Visit Provider Family Medicine | DX: I48.91 Unspecified atrial fibrillation (principal) | CPT/HCPCS: 84436; 84439; 84443 ==

== ENCOUNTER → 2022-10-24 14:12 | Outpatient (BNVA) | payer MEDICARE, OTHER, SELFPAY | PROVIDERS: PCP Family Medicine | DX: N39.0 Urinary tract infection, site not specified (principal); R39.9 Unspecified symptoms and signs involving the genitourinary system | CPT/HCPCS: 81000; 87077; 87086; 87184 ==

== ENCOUNTER 2022-11-08 08:46 | Outpatient (CLI) | payer MEDICARE, OTHER, SELFPAY ==
[2022-11-08 10:34] LABS: Free T4 Free Thyroxine 2.14 ng/dL (0.82-1.77); Thyroid Stimulating Hormone 0.08 uIU/mL (0.27-4.20)
[2022-11-09 15:30] LABS: Thyroglobulin AB <1 IU/mL (< or = 1); Thyroid Peroxidase Antobodies <1 IU/mL (<9)
[2022-11-09 21:19] LABS: T3 Total 109 ng/dL (76-181)
[2022-11-14 02:49] LABS: TSH Receptor Binding Antibody <1.00 IU/L (< OR = 2.00)
== END 2022-11-08 08:47 | disposition home or self-care (01) ==
PROVIDERS: PCP Family Medicine; Visit Provider Internal Medicine
DX: I48.91 Unspecified atrial fibrillation (principal); E04.9 Nontoxic goiter, unspecified; E05.90 Thyrotoxicosis, unspecified without thyrotoxic crisis or storm
CPT/HCPCS: 36415; 83516; 84439; 84443; 84480; 86376; 86800

== ENCOUNTER → 2022-11-09 18:44 | Outpatient (BNVA) | payer MEDICARE, OTHER, SELFPAY | PROVIDERS: PCP Family Medicine; Visit Provider Emergency Medicine | DX: R35.0 Frequency of micturition (principal) | CPT/HCPCS: 81000; 87077; 87086; 87184 ==

== ENCOUNTER → 2022-11-11 08:47 | Outpatient (BNVA) | payer MEDICARE, OTHER, SELFPAY | PROVIDERS: PCP Family Medicine; Visit Provider Internal Medicine | DX: E05.90 Thyrotoxicosis, unspecified without thyrotoxic crisis or storm (principal); E04.9 Nontoxic goiter, unspecified; I48.91 Unspecified atrial fibrillation | CPT/HCPCS: 99214 ==

== ENCOUNTER 2022-11-18 09:23 | Outpatient (CLI) | payer MEDICARE, OTHER, SELFPAY ==
[2022-11-18 11:24] LABS: Free T4 Free Thyroxine 1.92 ng/dL (0.82-1.77); Thyroid Stimulating Hormone 0.14 uIU/mL (0.27-4.20)
[2022-11-19 23:59] LABS: T3 Total 113 ng/dL (76-181)
== END 2022-11-18 09:24 | disposition home or self-care (01) ==
LOC: LAB 09:30
PROVIDERS: PCP Family Medicine; Visit Provider Internal Medicine
DX: I48.91 Unspecified atrial fibrillation (principal); E04.1 Nontoxic single thyroid nodule; E05.90 Thyrotoxicosis, unspecified without thyrotoxic crisis or storm; N39.0 Urinary tract infection, site not specified
CPT/HCPCS: 36415; 84439; 84443; 84480

== ENCOUNTER 2022-11-20 15:32 | Emergency (ER) | payer MEDICARE, OTHER, SELFPAY ==
[2022-11-20 15:42] VITALS: BP 169/63; PULSE 63; RESP 18; TEMP 36.7; O2SAT 96; BMI 31.0
--- NOTE | 2022-11-20 16:06 | W.ED.MALEGU ---
HPI - Male Genitourinary General: Chief complaint: Urogenital-Male Stated complaint: Bladder Trouble Time Seen by Provider: 11/20/22 15:55 History of Present Illness: Patient comes in with possible urinary retention. States that he has been treated for urinary tract infection twice recently. States he finished his antibiotics yesterday. States since then he feels like he is not being able to urinate completely each time. He is concerned that he may be retaining urine. Associated symptoms: Deny dysuria, nausea or vomiting Review of Systems Const: Denies: fever(s) ENMT: Denies: throat pain Card: Denies: chest pain Resp: Denies: dyspnea or productive cough GI: Denies: abdominal pain, nausea or vomiting : Denies: flank pain or dysuria Musc: Denies: neck pain or back pain PFSH ED PFSH: Medical History Atrial fibrillation with rapid ventricular response CAD (coronary artery disease) of artery bypass graft Delete CAD, multiple vessel Diabetes mellitus History of non-ST elevation myocardial infarction (NSTEMI) History of stroke HTN (hypertension) Hyperlipidemia Hypertensive urgency Paroxysmal atrial fibrillation Pyelonephritis URI with cough and congestion Surgical History S/P PTCA (percutaneous transluminal coronary angioplasty) Family History Brother Heart disease Social History Smoking and tobacco status: former smoker Alcohol intake: never Substance/Drug Use: never Physical Exam Const: COMMON NORMALS: no acute distress, patient oriented x3, healthy appearing and alert HENMT: COMMON NORMALS: normocephalic and atraumatic HEAD & SCALP: normocephalic and atraumatic Eye: COMMON NORMALS: Equal, round and reactive pupils present and EOMs intact bilaterally PUPIL: Yes Equal, round and reactive pupils present Neck/C-Spine: COMMON NORMALS: full ROM and supple Resp: COMMON NORMALS: normal respiratory effort, No retractions and No use of accessory muscles Cardio: COMMON NORMALS: regular rate and regular rhythm RATE: regular rate RHYTHM: regular rhythm GI: COMMON NORMALS: Normal to inspection, nondistended, normoactive bowel sounds present, Soft to palpation and non-tender PALPATION: Yes Soft to palpation Extremity: COMMON NORMALS: normal to inspection and full ROM Neuro: COMMON NORMALS: patient oriented x3 SENSORIUM/ORIENTATION: Yes alert Psych: COMMON NORMALS: mental status grossly normal and cooperative Course Vital Signs: Vital signs: Vital Signs Temperature 98.1 F 11/20/22 15:42 Pulse Rate 60 11/20/22 16:13 Respiratory Rate 15 11/20/22 16:13 Blood Pressure 132/98 11/20/22 17:30 Pulse Oximetry 97 11/20/22 16:13 Oxygen Delivery Me thod Room Air 11/20/22 16:13 MDM - Male Medical Decision Making Patient comes in with possible urinary retention. States that he has been treated for urinary tract infection twice recently. States he finished his antibiotics yesterday. States since then he feels like he is not being able to urinate completely each time. He is concerned that he may be retaining urine. On physical exam his abdomen is soft, nontender. Bedside ultrasound reveals what appears to be a small amount of urine in his bladder. Will check and measure the amount with a bladder scan, send urine for UA, and reassess. He denies any abdominal pain, nausea, vomiting, diarrhea, fever. On reassessment I talked to the patient about the test results. He states that when he urinated here in the department he did have some dysuria. His urine appears to be infected. He states he just finished a course of Macrobid. States he is allergic to Levaquin. We will place him on a 1 dose therapy of fosfomycin, and refer to urology. Will discharge home at this time with precautions to return for worsening or changing symptoms. Lab Data Laboratory Results Urine Color Yellow (Yellow) 11/20/22 17:00 Urine Appearance Sl hazy (CLEAR) A 11/20/22 17:00 Urine pH 5 (5-7) 11/20/22 17:00 Ur Specific [place] 1.005 (1.005-1.030) 11/20/22 17:00 Urine Protein Neg (Negative) 11/20/22 17:00 Urine Glucose (UA) 4+ (Normal) H 11/20/22 17:00 Urine Ketones Negative (Negative) 11/20/22 17:00 Urine Blood Neg (Negative) 11/20/22 17:00 Urine Nitrate Negative (Negative) 11/20/22 17:00 Urine Bilirubin Neg (Negative) 11/20/22 17:00 Urine Urobilinogen Norm mg/dL (Negative) 11/20/22 17:00 Ur Leukocyte Esterase 2+ (Negative) H 11/20/22 17:00 Urine RBC 0-4 /hpf (0-2) H 11/20/22 17:00 Urine WBC 25-40 /hpf (0-5) H 11/20/22 17:00 Ur Squamous Epith Cells 0-4 /hpf (0-5) H 11/20/22 17:00 Amorphous Sediment Not Reportable 11/20/22 17:00 Urine Bacteria 4+ /hpf (NONE) H 11/20/22 17:00 Discharge Plan Discharge Patient Disposition: Home Clinical Impression: Urinary tract infection Condition: Stable Prescriptions: New fosfomycin tromethamine 3 gram packet 1 packet PO ONCE Qty: 1 0RF No Action guaifenesin 600 mg tablet extended release 12hr 600 mg PO BID PRN (Reason: congestion/cough) Qty: 20 0RF prednisone 10 mg tablet 10 mg PO DAILY Qty: 10 0RF methimazole 5 mg tablet 5 mg PO DAILY Qty: 90 2RF cefuroxime axetil 500 mg tablet 500 mg PO BID 10 Days Qty: 20 0RF nitrofurantoin monohyd/m-cryst [Macrobid] 100 mg capsule 100 mg PO BID 7 Days Qty: 14 0RF Rx Instructions: must administer with a meal/food nateglinide 120 mg tablet 120 mg PO TID Qty: 270 3RF Rx Instructions: give before meal(s) diltiazem HCl 300 mg capsule,extended release 24hr 300 mg PO DAILY Qty: 90 3RF metoprolol tartrate 25 mg tablet 25 mg PO BID@0900,2100 Qty: 180 3RF sulfamethoxazole-trimethoprim [Bactrim DS] 800-160 mg tablet 1 tab PO BID Qty: 14 0RF warfarin 3 mg tablet See Rx Instructions .ROUTE .COMPLEX Qty: 90 1RF Dose Instruction: TAKE 1 TABLET BY MOUTH AT BEDTIME Rx Instructions: TAKE 1 TABLET BY MOUTH AT BEDTIME Pacerone 200 mg Tablet 200 mg PO QAM Flomax 0.4 mg Capsule 0.4 mg PO QAM metformin 1,000 mg Tablet 1,000 mg PO BID Dulcolax (bisacodyl) 5 mg Tablet,Delayed Release (Dr/Ec) 5 mg PO BEDTIME Mag Complete With P5p & Zinc 1 tab PO DAILY triamcinolone acetonide 0.5 % cream 1 applic topical BID PRN (Reason: for dermatitis) hydrochlorothiazide 12.5 mg tablet 12.5 mg PO BID losartan 100 mg Tablet See Rx Instructions .ROUTE .COMPLEX Rx Instructions: take 100mg (1 tab) po qam and 50mg (1/2 tab) po at bedtime Discharge Orders: Discharge ED (Routine); Ordered 11/20/22 Ordered By: Rey Lucas Referrals: Joo Lugo, [Primary Care Provider] - Patient Instructions: Urinary Tract Infection in Men (ED) Coding Level of Care Code ED [employer] for Samantha Chu
[2022-11-20 16:13] VITALS: BP 178/77; PULSE 60; RESP 15; O2SAT 97
[2022-11-20 17:30] VITALS: BP 132/98
[2022-11-20 17:37] LABS: Add Urine Microscopic? YES; Bacteria Urine 4+ /hpf; Bilirubin Urine Neg (Negative); Blood Urine Neg (Negative); Glucose Urine UA 4+ (Normal); Ketones Urine Negative (Negative); Leukocyte Esterase Urine 2+ (Negative); Nitrate Urine Negative (Negative); Protein Urine Neg (Negative); RBC Urine 0-4 /hpf (0-2); Specific Gravity, Urine 1.005 (1.005-1.030); Squamous Epithelial Cell Urine 0-4 /hpf (0-5); Urine Appearance SL Hazy (CLEAR); Urine Color Yellow (Yellow); Urobilinogen Urine Norm (Negative); WBC Urine 25-40 /hpf (0-5); pH Urine 5 (5-7)
[2022-11-20 17:38] LABS: Add Urine Culture? Yes
[2022-11-20 18:15] VITALS: BP 132/98
--- NOTE | 2022-11-22 08:29 | DCPLANNER ---
Addendum entered by Lisbet Marcos 12/01/22 13:46: reception manager called [facility] to confirm that clinic had received patients information. reception manager was told that clinic had received patients information. Addendum entered by Lisbet Marcos 11/24/22 10:44: reception manager received the following message from the urology clinic regarding follow up appointment: Please refer to another urologist due to this is a condition that should be followed periodically. reception manager spoke with patients and explained this, patient would like to be referred to Dr. Srinivasan in [facility]. reception manager faxed patients records to Dr. Salcedo office. Original Note: reception manager had message to schedule a follow up appointment for patient with urology. reception manager sent patients information to the front office staff at urology. Patients information will be printed and reviewed. Clinic will call patient with appointment information.
== END 2022-11-20 18:18 | disposition home or self-care (01) ==
PROVIDERS: Emergency Provider Emergency Medicine; PCP Family Medicine
DX: N39.0 Urinary tract infection, site not specified (principal); Z79.01 Long term (current) use of anticoagulants; Z79.84 Long term (current) use of oral hypoglycemic drugs; I25.10 Atherosclerotic heart disease of native coronary artery without angina pectoris; E11.9 Type 2 diabetes mellitus without complications; I25.2 Old myocardial infarction; I10 Essential (primary) hypertension; Z86.73 Personal history of transient ischemic attack (TIA), and cerebral infarction without residual deficits; E78.5 Hyperlipidemia, unspecified; Z87.891 Personal history of nicotine dependence
CPT/HCPCS: 51798; 81001; 87077; 87086; 87186; 99283

== ENCOUNTER → 2023-01-06 13:41 | Outpatient (BNVA) | payer MEDICARE, OTHER, SELFPAY | PROVIDERS: PCP Family Medicine; Visit Provider Internal Medicine | DX: I25.10 Atherosclerotic heart disease of native coronary artery without angina pectoris (principal); I10 Essential (primary) hypertension; I48.0 Paroxysmal atrial fibrillation; Z87.891 Personal history of nicotine dependence; Z79.01 Long term (current) use of anticoagulants | CPT/HCPCS: 99214 ==

== ENCOUNTER → 2023-01-11 08:53 | Outpatient (BNVA) | payer MEDICARE, OTHER, SELFPAY | PROVIDERS: PCP Family Medicine; Visit Provider Internal Medicine | DX: E05.90 Thyrotoxicosis, unspecified without thyrotoxic crisis or storm (principal); E04.9 Nontoxic goiter, unspecified; I48.0 Paroxysmal atrial fibrillation | CPT/HCPCS: 36415; 84439; 84443; 84480; 99214 ==

== ENCOUNTER 2023-02-26 08:03 | Emergency (ER) | payer MEDICARE, OTHER, SELFPAY ==
[2023-02-26 08:09] VITALS: BP 196/64; PULSE 57; RESP 18; TEMP 36.6; O2SAT 97; BMI 32.6
--- NOTE | 2023-02-26 08:29 | W.ED.MALEGU ---
HPI - Male Genitourinary General: Chief complaint: Urogenital-Male Stated complaint: urinary Source: patient and family Mode of arrival: ambulatory Limitations: no limitations History of Present Illness: Patient is a nice 73-year-old male who presents to ED today with a complaint of difficulty with urination, urinary dribbling/urinary incontinence, small volume voids. Patient states approximately 4 days ago he underwent cystoscopy by Dr. Srinivasan in [place] for evaluation of chronic UTIs. He was found to have a bladder lesion that was then biopsied (pathology report pending). He states ever since the procedure he has noticed urinary dribbling and incontinence. He has had the symptoms previously with UTIs. He has not noticed any hematuria or clots in his urine. He is reporting suprapubic fullness and feels like he needs to urinate at time of my initial examination. MD Complaint: other (difficulty with urination, urine dribbling) Onset (ago): day(s) Duration: intermittent Severity: mild Relieving factors: none Exacerbating factors: none Context: recent surgery (procedure) Associated symptoms: Reports no associated symptoms; Deny dysuria, hematuria, nausea or vomiting Related Data: Sexually active: No Review of Systems Const: Denies: fever(s), chills, body aches, fatigue or malaise Card: Denies: chest pain Resp: Denies: dyspnea GI: Reports: abdominal pain (suprapubic fullness); Denies: nausea, vomiting or change in bowel habits : Reports: difficulty urinating, urinary urgency, urinary hesitancy, urinary dribbling, difficulty starting urination and change in urine stream; Denies: flank pain, dysuria, urinary frequency or hematuria Musc: Denies: back pain Skin/Breast: Denies: rash Neuro: Denies: headache(s) or dizziness PFS ED PFSH: Medical History Atrial fibrillation with rapid ventricular response CAD (coronary artery disease) of artery bypass graft Delete CAD, multiple vessel Diabetes mellitus History of non-ST elevation myocardial infarction (NSTEMI) History of stroke HTN (hypertension) Hyperlipidemia Hypertensive urgency Paroxysmal atrial fibrillation Pyelonephritis URI with cough and congestion Surgical History S/P PTCA (percutaneous transluminal coronary angioplasty) Family History Brother Heart disease Social History Smoking and tobacco status: former smoker Alcohol intake: never Substance/Drug Use: never Physical Exam Const: COMMON NORMALS: no acute distress, patient oriented x3, no limitations, healthy appearing, alert and well nourished ORIENTATION/CONSCIOUSNESS: Yes awake, Yes oriented to person, Yes oriented to place and Yes oriented to time Resp: COMMON NORMALS: normal respiratory effort and clear to auscultation bilaterally AUSCULTATION: clear to auscultation bilaterally Cardio: COMMON NORMALS: regular rate and regular rhythm RATE: regular rate RHYTHM: regular rhythm GI: COMMON NORMALS: Normal to inspection, nondistended, normoactive bowel sounds present and No hepatosplenomegaly present INSPECTION: Yes normal to inspection AUSCULTATION: Yes normoactive bowel sounds PALPATION: Yes Tenderness to palpation present (GI) (suprapubic; obviously distended bladder), No Guarding due to palpation present (GI), No Rigid due to palpation and Yes No hepatosplenomegaly present : COMMON NORMALS: Yes no CVA tenderness BLADDER/KIDNEY EXAM: Yes no CVA tenderness Back/Pelvis: COMMON NORMALS: no CVA tenderness Extremity: COMMON NORMALS: no clubbing, cyanosis or edema, no calf tenderness and no pedal edema Neuro: COMMON NORMALS: patient oriented x3 SENSORIUM/ORIENTATION: Yes alert, Yes oriented to person, Yes oriented to place and Yes oriented to time Skin: COMMON NORMALS: no rashes or lesions noted GENERAL SKIN EXAM: no rashes or lesions noted Course ED course: Bladder scanner reading over 780ml. He attempted urination with only 40ml output so decision was made for barnes catheter. Over 1300ml output after barnes insertion. Patient reportedly feeling much better. Vital Signs: Vital signs: Vital Signs Temperature 97.8 F 02/26/23 08:09 Pulse Rate 57 L 02/26/23 08:49 Respiratory Rate 16 02/26/23 08:49 Blood Pressure 192/75 02/26/23 08:49 Pulse Oximetry 97 02/26/23 08:49 Oxygen Delivery Me thod Room Air 02/26/23 08:49 MDM - Male Medical Decision Making Patient is a 73-year-old male who presented to the ED today with what sounds to be overflow incontinence. He has acute urinary retention following a cystoscopy and bladder biopsy by Dr. Srinivasan. He was found to have close to 1300ml in his bladder. Patient feels much better after Barnes. Blood work is unremarkable. UA does show some blood as well as 2+ leuks and 10-15 WBCs. He does have a history of chronic UTIs. He is currently on antibiotics. Recommend follow-up with Dr. Srinivasan this week for Barnes removal/voiding trial. I have placed information with case management to help him with this. Also instructed him to contact their office Tuesday morning. Return to ED precautions given. Lab Data 02/26/23 08:47 02/26/23 08:47 Laboratory Results WBC 6.8 10^3/uL (4.0-10.0) 02/26/23 08:47 RBC 4.38 10^6/uL (4.1-5.3) 02/26/23 08:47 Hgb 13.0 g/dL (11.7-16.6) 02/26/23 08:47 Hct 38.7 % (42.0-52.0) L 02/26/23 08:47 MCV 88.4 fl (80-94) 02/26/23 08:47 MCH 29.7 pg (28.0-34.0) 02/26/23 08:47 MCHC 33.6 g/dL (30.0-36.0) 02/26/23 08:47 RDW 13.7 % (12.1-15.1) 02/26/23 08:47 Plt Count 169 10^3/cmm (130-400) 02/26/23 08:47 MPV 10.0 fL (7.4-10.4) 02/26/23 08:47 Neut % (Auto) 68.6 % 02/26/23 08:47 Lymph % (Auto) 17.1 % 02/26/23 08:47 Collier % (Auto) 10.0 % 02/26/23 08:47 Eos % (Auto) 3.8 % 02/26/23 08:47 Baso % (Auto) 0.1 % 02/26/23 08:47 Neut # (Auto) 4.66 10^3/uL (1.8-7.7) 02/26/23 08:47 Lymph # (Auto) 1.2 10^3/uL (0.8-4.8) 02/26/23 08:47 Collier # (Auto) 0.7 10^3/uL (0.2-0.9) 02/26/23 08:47 Eos # (Auto) 0.3 10^3/uL (0.0-0.8) 02/26/23 08:47 Baso # (Auto) 0.0 10^3/uL (0.0-0.1) 02/26/23 08:47 Nucleated RBC % (auto) 0 % 02/26/23 08:47 Nucleated RBCs # 0.0 /100WBC 02/26/23 08:47 Sodium 140 mmol/L (136-145) 02/26/23 08:47 Potassium 3.7 mmol/L (3.5-5.1) 02/26/23 08:47 Chloride 100 mmol/L (98-107) 02/26/23 08:47 Carbon Dioxide 28 mmol/L (22-29) 02/26/23 08:47 Anion Gap 15.7 (5-19) 02/26/23 08:47 BUN 17 mg/dL (8-23) 02/26/23 08:47 Creatinine 1.1 mg/dL (0.7-1.2) 02/26/23 08:47 GFR Calculation Not Reportable 02/26/23 08:47 Glucose 181 mg/dL (65-115) H 02/26/23 08:47 Calculated Osmolality 296 mOsm/kg (285-295) H 02/26/23 08:47 Calcium 9.8 mg/dL (8.5-10.5) 02/26/23 08:47 Total Bilirubin 0.8 mg/dL (0.15-1.2) 02/26/23 08:47 AST 45 U/L (0-40) H 02/26/23 08:47 ALT 78 U/L (0-41) H 02/26/23 08:47 Alkaline Phosphatase 77 U/L (40-130) 02/26/23 08:47 Total Protein 6.8 g/dL (6.6-8.7) 02/26/23 08:47 Albumin 4.3 g/dL (3.5-5.2) 02/26/23 08:47 Globulin 2.5 g/dL (1.3-4.6) 02/26/23 08:47 Urine Color Colorless (Yellow) 02/26/23 08:48 Urine Appearance Clear (CLEAR) 02/26/23 08:48 Urine pH 7 (5-7) 02/26/23 08:48 Ur Specific [place] 1.005 (1.005-1.030) 02/26/23 08:48 Urine Protein Neg (Negative) 02/26/23 08:48 Urine Glucose (UA) Trace (Normal) H 02/26/23 08:48 Urine Ketones Negative (Negative) 02/26/23 08:48 Urine Blood 2+ (Negative) H 02/26/23 08:48 Urine Nitrate Negative (Negative) 02/26/23 08:48 Urine Bilirubin Neg (Negative) 02/26/23 08:48 Urine Urobilinogen Norm mg/dL (Negative) 02/26/23 08:48 Ur Leukocyte Esterase 2+ (Negative) H 02/26/23 08:48 Urine RBC 10-15 /hpf (0-2) H 02/26/23 08:48 Urine WBC 10-15 /hpf (0-5) H 02/26/23 08:48 Ur Squamous Epith Cells None /hpf (0-5) 02/26/23 08:48 Amorphous Sediment Not Reportable 02/26/23 08:48 Urine Bacteria 1+ /hpf (NONE) H 02/26/23 08:48 Discharge Plan Discharge Patient Disposition: Home Clinical Impression: Status post cystoscopy, Acute urinary retention Condition: Stable Prescriptions: No Action cefuroxime axetil 500 mg tablet 500 mg PO BID 10 Days Qty: 20 0RF nateglinide 120 mg tablet 120 mg PO TID Qty: 270 3RF Rx Instructions: give before meal(s) diltiazem HCl 300 mg capsule,extended release 24hr 300 mg PO DAILY Qty: 90 3RF metoprolol tartrate 25 mg tablet 25 mg PO BID@0900,2100 Qty: 180 3RF losartan 100 mg tablet See Rx Instructions .ROUTE .COMPLEX Qty: 180 3RF Rx Instructions: take 100mg (1 tab) po qam and 50mg (1/2 tab) po at bedtime tamsulosin 0.4 mg capsule See Rx Instructions .ROUTE .COMPLEX Qty: 90 3RF Dose Instruction: TAKE 1 CAPSULE BY MOUTH DAILY FOR URINATION Rx Instructions: TAKE 1 CAPSULE BY MOUTH DAILY FOR URINATION warfarin 3 mg tablet See Rx Instructions .ROUTE .COMPLEX Qty: 90 1RF Dose Instruction: TAKE 1 TABLET BY MOUTH AT BEDTIME Rx Instructions: TAKE 1 TABLET BY MOUTH AT BEDTIME enoxaparin [Lovenox] 100 mg/mL syringe 100 mg SUBCUT DIRECTED Qty: 5 0RF Rx Instructions: 1st dose 7/30pm, 2nd 7/31am, 3rd 7/31pm, 4th 8/1am, 5th 8/1pm metformin 1,000 mg tablet See Rx Instructions .ROUTE .COMPLEX Qty: 180 3RF Dose Instruction: TAKE 1 TABLET BY MOUTH TWICE DAILY Rx Instructions: TAKE 1 TABLET BY MOUTH TWICE DAILY methimazole 5 mg tablet See Rx Instructions .ROUTE .COMPLEX Qty: 180 0RF Dose Instruction: TAKE 2 TABLETS BY MOUTH DAILY Rx Instructions: TAKE 2 TABLETS BY MOUTH DAILY Pacerone 200 mg Tablet 200 mg PO QAM Dulcolax (bisacodyl) 5 mg Tablet,Delayed Release (Dr/Ec) 5 mg PO BEDTIME Mag Complete With P5p & Zinc 1 tab PO DAILY triamcinolone acetonide 0.5 % cream 1 applic topical BID PRN (Reason: for dermatitis) hydrochlorothiazide 12.5 mg tablet 12.5 mg PO BID Discharge Orders: Discharge ED (Routine); Ordered 02/26/23 Ordered By: Miriam Boland Referrals: Joo Lugo, [Primary Care Provider] - Activity Restrictions/Additional Instructions: Continue your current antibiotics until finished. As we discussed you need to contact Dr. Srinivasan's office on Tuesday to schedule a follow-up visit sooner than your currently scheduled appointment. I have placed a referral with our director of casework services team that will also work on this. You need to return to the emergency department if Barnes is not draining appropriately, you begin noticing large amounts of blood or clots in the tubing or leg bag, abdominal or flank pain, fevers, or any other concerns you may have. Coding Level of Care Code ED Vp Of Customer Experience Strategy for Samantha Chu
[2023-02-26 08:41] VITALS: BP 197/119; PULSE 59; RESP 16; O2SAT 96
[2023-02-26 08:49] VITALS: BP 192/75; PULSE 57; RESP 16; O2SAT 97
[2023-02-26 09:02] LABS: Basophils % 0.1 %; Eosinophils # 0.3 10^3/uL (0.0-0.8); Eosinophils % 3.8 %; Hematocrit 38.7 % (42.0-52.0); Lymphocytes # 1.2 10^3/uL (0.8-4.8); Lymphocytes % 17.1 %; Mean Corpuscular HGB Conc 33.6 g/dL (30.0-36.0); Mean Corpuscular Hemoglobin 29.7 pg (28.0-34.0); Mean Corpuscular Volume 88.4 fl (80-94); Monocytes # 0.7 10^3/uL (0.2-0.9); Neutrophils # 4.66 10^3/uL (1.8-7.7); Neutrophils % 68.6 %; Nucleated Red Blood Cells % 0 %; Platelet Count 169 10^3/cmm (130-400); Red Blood Count 4.38 10^6/uL (4.1-5.3); Red Cell Distribution Width 13.7 % (12.1-15.1); White Blood Count 6.8 10^3/uL (4.0-10.0)
[2023-02-26 09:15] LABS: Blood Urine 2+ (Negative); Glucose Urine UA Trace (Normal); Ketones Urine Negative (Negative); Protein Urine Neg (Negative); Specific Gravity, Urine 1.005 (1.005-1.030); Urine Appearance Clear (CLEAR); Urine Color Colorless (Yellow); pH Urine 7 (5-7)
[2023-02-26 09:16] LABS: Nitrate Urine Negative (Negative)
[2023-02-26 09:17] LABS: Add Urine Microscopic? YES; Bilirubin Urine Neg (Negative); Leukocyte Esterase Urine 2+ (Negative); Urobilinogen Urine Norm (Negative)
[2023-02-26 09:18] LABS: Add Urine Culture? Yes; Bacteria Urine 1+ /hpf
[2023-02-26 09:29] LABS: Alanine Aminotransferase 78 U/L (0-41); Albumin Level 4.3 g/dL (3.5-5.2); Alkaline Phosphatase 77 U/L (40-130); Anion Gap 15.7 (5-19); Aspartate Amino Transferase 45 U/L (0-40); Blood Urea Nitrogen 17 mg/dL (8-23); Calcium 9.8 mg/dL (8.5-10.5); Carbon Dioxide 28 mmol/L (22-29); Chloride 100 mmol/L (98-107); Globulin 2.5 g/dL (1.3-4.6); Glucose 181 mg/dL (65-115); Osmolality Calculated 296 mOsm/kg (285-295); Potassium 3.7 mmol/L (3.5-5.1); Sodium 140 mmol/L (136-145); Total Bilirubin 0.8 mg/dL (0.15-1.2); Total Protein 6.8 g/dL (6.6-8.7)
--- NOTE | 2023-02-28 10:48 | DCPLANNER ---
Addendum entered by Lisbet Marcos 03/03/23 13:41: medical territory manager called the urology clinic in [facility] to confirm that facility had received patients information. medical territory manager was told that patients information had been received, it will be reviewed and clinic will call patient with appointment information. Original Note: medical territory manager had message to schedule a follow up appointment for patient with Dr. Srinivasan, urology in [facility]. Case manger faxed patients information to the office of Dr. Srinivasan, urology. Patients information will be printed and reviewed. Clinic will call patient with appointment information.
== END 2023-02-26 09:51 | disposition home or self-care (01) ==
PROVIDERS: Emergency Provider Physician Assistant; PCP Family Medicine
DX: R33.9 Retention of urine, unspecified (principal); Z98.890 Other specified postprocedural states; Z79.01 Long term (current) use of anticoagulants; Z79.84 Long term (current) use of oral hypoglycemic drugs; I25.10 Atherosclerotic heart disease of native coronary artery without angina pectoris; E11.9 Type 2 diabetes mellitus without complications; I25.2 Old myocardial infarction; Z86.73 Personal history of transient ischemic attack (TIA), and cerebral infarction without residual deficits; I10 Essential (primary) hypertension; E78.5 Hyperlipidemia, unspecified; Z87.891 Personal history of nicotine dependence
CPT/HCPCS: 36415; 51702; 51798; 80053; 81001; 85025; 87086; 99283

== ENCOUNTER 2023-03-09 09:18 | Outpatient (CLI) | payer MEDICARE, OTHER, SELFPAY ==
[2023-03-09 10:32] LABS: Free T4 Free Thyroxine 1.77 ng/dL (0.82-1.77); Thyroid Stimulating Hormone 2.47 uIU/mL (0.27-4.20)
[2023-03-10 11:39] LABS: T3 Total 92 ng/dL (76-181)
== END 2023-03-09 09:19 | disposition home or self-care (01) ==
LOC: LAB 09:24
PROVIDERS: PCP Family Medicine; Visit Provider Internal Medicine
DX: E04.9 Nontoxic goiter, unspecified (principal); E05.90 Thyrotoxicosis, unspecified without thyrotoxic crisis or storm; I48.91 Unspecified atrial fibrillation
CPT/HCPCS: 84439; 84443; 84480

== ENCOUNTER → 2023-03-10 15:10 | Outpatient (BNVA) | payer MEDICARE, OTHER, SELFPAY | PROVIDERS: PCP Family Medicine; Visit Provider Internal Medicine | DX: I25.10 Atherosclerotic heart disease of native coronary artery without angina pectoris (principal); I10 Essential (primary) hypertension; I48.0 Paroxysmal atrial fibrillation; Z79.01 Long term (current) use of anticoagulants; Z87.891 Personal history of nicotine dependence; I25.2 Old myocardial infarction | CPT/HCPCS: 99214 ==

== ENCOUNTER → 2023-03-15 07:42 | Outpatient (BNVA) | payer MEDICARE, OTHER, SELFPAY | PROVIDERS: PCP Family Medicine; Visit Provider Internal Medicine | DX: E05.00 Thyrotoxicosis with diffuse goiter without thyrotoxic crisis or storm (principal); I48.0 Paroxysmal atrial fibrillation | CPT/HCPCS: 99214 ==

== ENCOUNTER 2023-03-23 22:18 | Emergency (ER) | payer MEDICARE, OTHER, SELFPAY ==
[2023-03-23 22:28] VITALS: BP 200/76; PULSE 64; RESP 18; TEMP 36.6; O2SAT 97; BMI 31.0
[2023-03-23 23:06] LABS: Add Urine Microscopic? YES; Bilirubin Urine Neg (Negative); Blood Urine 3+ (Negative); Glucose Urine UA 4+ (Normal); Ketones Urine Negative (Negative); Leukocyte Esterase Urine 2+ (Negative); Nitrate Urine Negative (Negative); Protein Urine 2+ (Negative); RBC Urine >100 /hpf (0-2); Urine Appearance Cloudy (CLEAR); Urine Color Yellow (Yellow); Urobilinogen Urine Neg (Negative); WBC Urine 55-80 /hpf (0-5); pH Urine 6.5 (5-7)
[2023-03-23 23:07] LABS: Add Urine Culture? Yes; Bacteria Urine 3+ /hpf
--- NOTE | 2023-03-23 23:29 | ED_ITS ---
HPI - Male Genitourinary General: Chief complaint: Urogenital-Male Stated complaint: urinary issues Time Seen by Provider: 03/23/23 23:23 History of Present Illness: 73-year-old male patient comes in today for complaints of difficulty urinating. Patient had a Ponce catheter removed today at his urologist office in [place]. Patient reports that throughout the day he has been able to urinate but it has been in steadily decreasing in the amount and increasing in the difficult to begin the stream and to fully empty his bladder. Patient came in tonight due to the worsening pain and discomfort. Patient appears nontoxic. Patient appears in mild to moderate pain. Review of Systems General: Reports: 10 or more systems reviewed and unremarkable except in HPI and below : Reports: difficulty urinating PFS ED PFSH: Medical History Atrial fibrillation with rapid ventricular response CAD (coronary artery disease) of artery bypass graft Delete CAD, multiple vessel Diabetes mellitus History of non-ST elevation myocardial infarction (NSTEMI) History of stroke HTN (hypertension) Hyperlipidemia Hypertensive urgency Paroxysmal atrial fibrillation Pyelonephritis URI with cough and congestion Surgical History S/P PTCA (percutaneous transluminal coronary angioplasty) Family History Brother Heart disease Social History Smoking and tobacco status: former smoker Alcohol intake: never Substance/Drug Use: never Physical Exam Const: COMMON NORMALS: alert HENMT: COMMON NORMALS: normocephalic HEAD & SCALP: normocephalic Neck/C-Spine: COMMON NORMALS: full ROM Resp: COMMON NORMALS: normal respiratory effort Cardio: COMMON NORMALS: regular rate RATE: regular rate GI: AUSCULTATION: Yes normoactive bowel sounds OTHER: Tenderness suprapubic : COMMON NORMALS: Yes no CVA tenderness BLADDER/KIDNEY EXAM: Yes no CVA tenderness Back/Pelvis: COMMON NORMALS: no CVA tenderness Extremity: COMMON NORMALS: full ROM Neuro: SENSORIUM/ORIENTATION: Yes alert Skin: COMMON NORMALS: turgor normal GENERAL SKIN EXAM: turgor normal Course Vital Signs: Vital signs: Vital Signs Temperature 97.9 F 03/23/23 23:53 Pulse Rate 80 03/23/23 23:53 Respiratory Rate 16 03/23/23 23:53 Blood Pressure 183/102 03/23/23 23:53 Pulse Oximetry 92 03/23/23 23:53 Oxygen Delivery Me thod Room Air 03/23/23 22:28 MDM - Male Medical Decision Making 73-year-old male patient comes in today with difficulty urinating. On exam patient appears nontoxic. Patient does have some tenderness in the suprapubic lower abdomen. Vital signs are normal except for some elevation in blood pressure. Differential diagnosis includes constipation, urinary tract infection, bladder retention, BPH. Bladder scan noted 397 retained urine after voiding. Ponce catheter was placed. Patient be placed on nitrofurantoin for probable urinary tract infection due to a urinalysis showing large amount of white blood cells and red blood cells. Patient was agreeable to treatment plan with recommendations to follow-up with urologist in the morning. Lab Data Laboratory Results Urine Color Yellow (Yellow) 03/23/23 22:50 Urine Appearance Cloudy (CLEAR) A 03/23/23 22:50 Urine pH 6.5 (5-7) 03/23/23 22:50 Ur Specific [place] 1.010 (1.005-1.030) 03/23/23 22:50 Urine Protein 2+ (Negative) H 03/23/23 22:50 Urine Glucose (UA) 4+ (Normal) H 03/23/23 22:50 Urine Ketones Negative (Negative) 03/23/23 22:50 Urine Blood 3+ (Negative) H 03/23/23 22:50 Urine Nitrate Negative (Negative) 03/23/23 22:50 Urine Bilirubin Neg (Negative) 03/23/23 22:50 Urine Urobilinogen Neg mg/dL (Negative) 03/23/23 22:50 Ur Leukocyte Esterase 2+ (Negative) H 03/23/23 22:50 Urine RBC >100 /hpf (0-2) H 03/23/23 22:50 Urine WBC 55-80 /hpf (0-5) H 03/23/23 22:50 Ur Squamous Epith Cells None /hpf (0-5) 03/23/23 22:50 Amorphous Sediment Not Reportable 03/23/23 22:50 Urine Bacteria 3+ /hpf (NONE) H 03/23/23 22:50 Discharge Plan Discharge Patient Disposition: Home Clinical Impression: Acute retention of urine Urinary tract infection Qualifiers: Urinary tract infection type: acute cystitis Hematuria presence: with hematuria Qualified Code(s): N30.01 - Acute cystitis with hematuria Condition: Stable Prescriptions: New nitrofurantoin macrocrystal 100 mg capsule 100 mg PO BID 7 Days Qty: 14 0RF Rx Instructions: must administer with a meal/food No Action nateglinide 120 mg tablet 120 mg PO TID Qty: 270 3RF Rx Instructions: give before meal(s) diltiazem HCl 300 mg capsule,extended release 24hr 300 mg PO DAILY Qty: 90 3RF metoprolol tartrate 25 mg tablet 25 mg PO BID@0900,2100 Qty: 180 3RF losartan 100 mg tablet See Rx Instructions .ROUTE .COMPLEX Qty: 180 3RF Rx Instructions: take 100mg (1 tab) po qam and 50mg (1/2 tab) po at bedtime tamsulosin 0.4 mg capsule See Rx Instructions .ROUTE .COMPLEX Qty: 90 3RF Dose Instruction: TAKE 1 CAPSULE BY MOUTH DAILY FOR URINATION Rx Instructions: TAKE 1 CAPSULE BY MOUTH DAILY FOR URINATION warfarin 3 mg tablet See Rx Instructions .ROUTE .COMPLEX Qty: 90 1RF Dose Instruction: TAKE 1 TABLET BY MOUTH AT BEDTIME Rx Instructions: TAKE 1 TABLET BY MOUTH AT BEDTIME metformin 1,000 mg tablet See Rx Instructions .ROUTE .COMPLEX Qty: 180 3RF Dose Instruction: TAKE 1 TABLET BY MOUTH TWICE DAILY Rx Instructions: TAKE 1 TABLET BY MOUTH TWICE DAILY methimazole 5 mg tablet See Rx Instructions .ROUTE .COMPLEX Qty: 180 0RF Dose Instruction: TAKE 2 TABLETS BY MOUTH DAILY Rx Instructions: TAKE 2 TABLETS BY MOUTH DAILY Pacerone 200 mg Tablet 200 mg PO QAM Dulcolax (bisacodyl) 5 mg Tablet,Delayed Release (Dr/Ec) 5 mg PO BEDTIME Mag Complete With P5p & Zinc 1 tab PO DAILY triamcinolone acetonide 0.5 % cream 1 applic topical BID PRN (Reason: for dermatitis) hydrochlorothiazide 12.5 mg tablet 12.5 mg PO BID Discharge Orders: Discharge ED (Routine); Ordered 03/24/23 Ordered By: Black Cox Referrals: Brittney,Joo F, DO [Primary Care Provider] - Discharge Diet: Usual diet Discharge Activity: Increase activity as tolerated Patient Instructions: Urinary Retention in Men (ED) Activity Restrictions/Additional Instructions: Follow-up with your urologist office in the morning. Drink plenty of water and fluids. Take antibiotic as directed. Return to ER for worsening symptoms such as high fever, persistent nausea and vomiting, or new concerns. Coding Level of Care Code ED Mobile Lounge Driver Or Operator for Samantha Chu
[2023-03-23] MEDS: nitrofurantoin SR (BID) 100 mg Capsule PO (23:44)
[2023-03-23 23:51] VITALS: BP 183/102; PULSE 80; RESP 16; O2SAT 92
[2023-03-23 23:53] VITALS: BP 183/102; PULSE 80; RESP 16; TEMP 36.6; O2SAT 92
== END 2023-03-23 23:56 | disposition home or self-care (01) ==
PROVIDERS: Emergency Medicine; Emergency Provider Nurse Practitioner Family; PCP Family Medicine
DX: N30.01 Acute cystitis with hematuria (principal); R33.9 Retention of urine, unspecified; Z79.01 Long term (current) use of anticoagulants; Z79.85 Long-term (current) use of injectable non-insulin antidiabetic drugs; I25.10 Atherosclerotic heart disease of native coronary artery without angina pectoris; I25.2 Old myocardial infarction; Z86.73 Personal history of transient ischemic attack (TIA), and cerebral infarction without residual deficits; I10 Essential (primary) hypertension; E78.5 Hyperlipidemia, unspecified; Z87.891 Personal history of nicotine dependence
CPT/HCPCS: 51702; 51798; 81001; 87077; 87086; 87186; 99283

== ENCOUNTER 2023-05-12 09:17 | Outpatient (CLI) | payer MEDICARE, OTHER, SELFPAY ==
[2023-05-12 10:16] LABS: INR 2.07 (0.8-1.2)
[2023-05-12 10:17] LABS: Partial Thromboplastin Time 37.9 SECONDS (23.9-36.7)
== END 2023-05-12 09:18 | disposition home or self-care (01) ==
LOC: LAB 09:23
PROVIDERS: PCP Family Medicine; Visit Provider Urology
DX: Z79.01 Long term (current) use of anticoagulants (principal)
CPT/HCPCS: 85610; 85730

== ENCOUNTER 2023-06-24 09:35 | Outpatient (CLI) | payer MEDICARE, OTHER, SELFPAY ==
--- NOTE | 2023-06-24 09:58 | US_ITS ---
WS: [id number] TESTICULAR ULTRASOUND HISTORY: ORCHITIS OF R TESTICLE/R TESTICULAR PAIN COMPARISON: None available. TECHNIQUE: Real-time and color Doppler imaging or utilized to perform a testicular ultrasound. The RIGHT testicle is not identified. There is a large complex cystic mass with septations in the RIG HT scrotum displacing the testicle. The testicle is probably being displaced posterior and medial but is very difficult to visualize. This complex cystic mass with septations measures 7.4 x 7.0 x 5.0 cm . There is displacement of the scrotal wall. No increased vascularity. Left testicle: 4.0 cm x 2.5 cm x 1.6 cm. Normal size with central microlithiasis. No mass. No increased vascularity. Normal color Doppler is present throughout. Systolic and diastolic velocities are both present. No significant hydrocele. Left epididymis: Normal epididymis with no increased vascularity. IMPRESSION: 1. Large complex cystic mass with multiple septations in the RIGHT scrotal sac measures 7.4 x 7.0 x 5 .0 cm. This is most likely a hematoma resolving or a complex hydrocele may be related to prior infect ion or inflammatory process. As per history this was an acute onset suggesting this may be from a res olving hematoma. 2. The RIGHT testicle is not identified. Testicle is probably being displaced by this large complex m ass. Without identifying the testicle cannot exclude torsion. 3. Negative LEFT testicle.
== END 2023-06-24 09:36 | disposition home or self-care (01) ==
LOC: RAD 09:35
PROVIDERS: PCP Family Medicine; Visit Provider Urology
DX: N50.9 Disorder of male genital organs, unspecified (principal)
CPT/HCPCS: 76870

== ENCOUNTER 2023-07-05 12:17 | Outpatient (CLI) | payer MEDICARE, OTHER, SELFPAY ==
[2023-07-05 13:27] LABS: Free T4 Free Thyroxine 1.61 ng/dL (0.82-1.77); Thyroid Stimulating Hormone 4.43 uIU/mL (0.27-4.20)
== END 2023-07-05 12:18 | disposition home or self-care (01) ==
LOC: LAB 12:18
PROVIDERS: PCP Family Medicine; Visit Provider Internal Medicine
DX: I48.91 Unspecified atrial fibrillation (principal)
CPT/HCPCS: 36415; 84439; 84443

== ENCOUNTER → 2023-07-12 07:49 | Outpatient (BNVA) | payer MEDICARE, OTHER, SELFPAY | PROVIDERS: PCP Family Medicine; Visit Provider Internal Medicine | DX: E05.90 Thyrotoxicosis, unspecified without thyrotoxic crisis or storm (principal); E04.9 Nontoxic goiter, unspecified; I48.0 Paroxysmal atrial fibrillation | CPT/HCPCS: 99214 ==

== ENCOUNTER → 2023-07-14 14:33 | Outpatient (BNVA) | payer MEDICARE, OTHER, SELFPAY | PROVIDERS: PCP Family Medicine; Visit Provider Internal Medicine | DX: I25.10 Atherosclerotic heart disease of native coronary artery without angina pectoris (principal); I10 Essential (primary) hypertension; I48.0 Paroxysmal atrial fibrillation; Z87.891 Personal history of nicotine dependence; Z79.01 Long term (current) use of anticoagulants | CPT/HCPCS: 85610; 99214 ==

== ENCOUNTER 2023-07-27 08:49 | Outpatient (CLI) | payer MEDICARE, OTHER, SELFPAY ==
--- NOTE | 2023-07-27 08:59 | USR_ITS ---
PROCEDURE INFORMATION: Exam: US Scrotum Exam date and time: 07/27/2023 9:27 AM Age: 73 years old Clinical indication: Swelling, testicles or scrotum; Additional info: Scrotal swelling/r testicular pain TECHNIQUE: Imaging protocol: Real-time ultrasound of the scrotum and contents with color Doppler and image documentation. COMPARISON: US scrotum [id number] 06/24/2023 10:09 AM FINDINGS: Right testicle: There is no normal right testicular or right epididymal tissue detected in the right hemiscrotum. Again is noted the multilocular multi cystic thick-walled structure in the right hemiscrotum measuring 5.6 x 4.2 x 4.3 cm. There is minimal vascular flow associated with the peripheral aspect of the structure but none detected internally. Question is raised as to whether this is the right testicle and it is abnormal either because it has been replaced by a multilocular necrotic tumor or replaced by multilocular testicular abscess or replaced by a intratesticular hematoma if there has been trauma.. The possibility of chronic torsion can not be excluded .. Typically following chronic or missed torsion, the testicle becomes small which is not the case in this patient Left testicle: The left testicle measures 3.6 x 2.1 x 1.5 cm. There is arterial and venous flow to the left testicle. There is no left testicular mass. Echotexture appears mildly heterogeneous but unchanged compared with prior. 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 Epididymides: The left epididymis appears unremarkable measuring 0.9 x 1.3 x 0.5 cm. Scrotum/soft tissues: See Right testicle finding. US/US scrotum [id number] IMPRESSION: 1. Left testicle appears mildly heterogeneous but exhibits vascular flow. There is no left testicular mass. 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 Left epididymis appears unremarkable 2. No normal right testicular or right epididymal tissue detected. Again is noted the multilocular multi cystic thick-walled mass within the right hemiscrotum. It is not changed compared with 06/24/2023 in examining these in the prior images I think this may be an abnormal right testicle, see above discussion and differential. It does not appear significantly changed. Additional information might be obtained with MRI. Recommend urology consult. Preliminary report was discussed with Carmencita Palmer, nurse practitioner on 07/27/2023 at 11:31 a.m. central time
== END 2023-07-27 08:50 | disposition home or self-care (01) ==
LOC: RAD 08:49
PROVIDERS: PCP Family Medicine; Visit Provider Nurse Practitioner Family
DX: N50.89 Other specified disorders of the male genital organs (principal); I48.91 Unspecified atrial fibrillation
CPT/HCPCS: 76870; 85610

== ENCOUNTER → 2023-08-03 08:59 | Outpatient (BNVA) | payer MEDICARE, OTHER, SELFPAY | PROVIDERS: PCP Family Medicine; Visit Provider Internal Medicine | DX: I48.91 Unspecified atrial fibrillation (principal) | CPT/HCPCS: 85610 ==

== ENCOUNTER → 2023-08-31 09:05 | Outpatient (BNVA) | payer MEDICARE, OTHER, SELFPAY | PROVIDERS: PCP Family Medicine; Visit Provider Internal Medicine | DX: I48.91 Unspecified atrial fibrillation (principal) | CPT/HCPCS: 85610 ==

== ENCOUNTER 2023-09-05 08:58 | Outpatient (CLI) | payer MEDICARE, OTHER, SELFPAY ==
[2023-09-05 09:50] LABS: Free T4 Free Thyroxine 1.61 ng/dL (0.82-1.77); Thyroid Stimulating Hormone 3.47 uIU/mL (0.27-4.20)
[2023-09-06 10:33] LABS: T3 Total 123 ng/dL (76-181)
== END 2023-09-05 08:59 | disposition home or self-care (01) ==
LOC: LAB 08:59
PROVIDERS: PCP Family Medicine; Visit Provider Internal Medicine
DX: E05.90 Thyrotoxicosis, unspecified without thyrotoxic crisis or storm (principal); I48.91 Unspecified atrial fibrillation
CPT/HCPCS: 36415; 84439; 84443; 84480

== ENCOUNTER → 2023-09-15 15:15 | Outpatient (BNVA) | payer MEDICARE, OTHER, SELFPAY | PROVIDERS: PCP Family Medicine; Visit Provider Internal Medicine | DX: I25.10 Atherosclerotic heart disease of native coronary artery without angina pectoris (principal); I10 Essential (primary) hypertension; I48.0 Paroxysmal atrial fibrillation; Z87.891 Personal history of nicotine dependence; Z79.01 Long term (current) use of anticoagulants | CPT/HCPCS: 99213 ==

== ENCOUNTER → 2023-09-20 09:15 | Outpatient (BNVA) | payer MEDICARE, OTHER, SELFPAY | PROVIDERS: PCP Family Medicine; Visit Provider Internal Medicine | DX: I48.91 Unspecified atrial fibrillation (principal) | CPT/HCPCS: 85610 ==

== ENCOUNTER 2023-09-23 14:43 | Outpatient (CLI) | payer MEDICARE, OTHER, SELFPAY ==
--- NOTE | 2023-09-23 14:55 | US_ITS ---
WS: [id number] TESTICULAR ULTRASOUND HISTORY: SCROTAL SWELLING/R TESTICULAR PAIN COMPARISON: 06/24/2023, 07/27/2023 TECHNIQUE: Real-time and color Doppler imaging or utilized to perform a testicular ultrasound. Right testicle: 3.6 cm x 2.8 cm x 2.6 cm. Reidentified is abnormal soft tissue mass in the RIGHT scrotal sac very send RIGHT testicle is not id entified. There is solid and a few cystic components. The cystic components have decreased since 2023 and the solid component is increased. On some of the images there does appear to be a slight augusta unt of central vascular flow. Testicular mass/neoplasm should be considered. On the original examinat ions there was more cystic component with septations suggesting this could potentially be infection o r hematoma. Doppler is demonstrated intermittently throughout the mass. Waveform appears appropriate. No significant hydrocele. Right epididymis: Epididymis is not identified as a separate structure. The overlying scrotal wall is thickened on the RIGHT. Left testicle: 3.2 cm x 2.1 cm x 1.7 cm. Normal size testicle. There are a few scattered echogenic foci throughout the testicle. Mild heteroge neity in the posterior testicle. There is a hypoechoic area in the posterior superior testicle measur ing 0.5 x 0.6 cm. Not visualized on prior studies.. Normal color Doppler is present throughout. Systolic and diastolic velocities are both present. No significant hydrocele. Left epididymis: Heterogeneous epididymis. No mass or increased vascularity. IMPRESSION: 1. Heterogeneous mass with vascularity in the RIGHT scrotum. Separate testicle is not identified. Th is mass has changed in configuration as compared to 07/27/2023 and 06/24/2023. There is less cystic comp onent with septations and now is more solid in appearance. Neoplasm needs to be excluded due to the i nterval change. 2. Echogenic foci consistent with microcalcifications in the LEFT testicle. There is a new area iden tified in the posterior superior testicle that is hypoechoic measuring 0.5 x 0.6 cm. Early neoplasm i s not excluded. 3. RIGHT scrotal wall thickening.
== END 2023-09-23 14:44 | disposition home or self-care (01) ==
LOC: RAD 14:43
PROVIDERS: PCP Family Medicine; Visit Provider Nurse Practitioner Family
DX: N50.89 Other specified disorders of the male genital organs (principal); N50.811 Right testicular pain
CPT/HCPCS: 76870

== ENCOUNTER → 2023-09-28 08:37 | Outpatient (BNVA) | payer MEDICARE, OTHER, SELFPAY | PROVIDERS: PCP Family Medicine; Visit Provider Internal Medicine | DX: I48.91 Unspecified atrial fibrillation (principal); E05.90 Thyrotoxicosis, unspecified without thyrotoxic crisis or storm; E04.9 Nontoxic goiter, unspecified; I48.0 Paroxysmal atrial fibrillation | CPT/HCPCS: 99214 ==

== ENCOUNTER → 2023-10-18 09:31 | Outpatient (BNVA) | payer MEDICARE, OTHER, SELFPAY | PROVIDERS: PCP Family Medicine; Visit Provider Internal Medicine | DX: I48.91 Unspecified atrial fibrillation | CPT/HCPCS: 85610 ==

== ENCOUNTER → 2023-11-15 09:03 | Outpatient (BNVA) | payer MEDICARE, OTHER, SELFPAY | PROVIDERS: PCP Family Medicine; Visit Provider Internal Medicine | DX: I48.91 Unspecified atrial fibrillation (principal) | CPT/HCPCS: 85610 ==

== ENCOUNTER → 2023-12-13 09:00 | Outpatient (BNVA) | payer MEDICARE, OTHER, SELFPAY | PROVIDERS: PCP Family Medicine; Visit Provider Internal Medicine | DX: I48.91 Unspecified atrial fibrillation (principal) | CPT/HCPCS: 85610 ==

== ENCOUNTER → 2024-01-04 09:24 | Outpatient (BNVA) | payer MEDICARE, OTHER, SELFPAY | PROVIDERS: PCP Family Medicine; Visit Provider Internal Medicine | DX: I48.91 Unspecified atrial fibrillation (principal) | CPT/HCPCS: 85610 ==

== ENCOUNTER → 2024-01-24 09:13 | Outpatient (BNVA) | payer MEDICARE, OTHER, SELFPAY | PROVIDERS: PCP Family Medicine; Visit Provider Internal Medicine | DX: I48.91 Unspecified atrial fibrillation (principal) | CPT/HCPCS: 85610 ==

== ENCOUNTER → 2024-01-27 09:12 | Outpatient (BNVA) | payer MEDICARE, OTHER, SELFPAY | PROVIDERS: PCP Family Medicine; Visit Provider Nurse Practitioner Family | DX: I48.0 Paroxysmal atrial fibrillation (principal); I10 Essential (primary) hypertension; I25.10 Atherosclerotic heart disease of native coronary artery without angina pectoris; Z87.891 Personal history of nicotine dependence; Z79.01 Long term (current) use of anticoagulants | CPT/HCPCS: 99214 ==

== ENCOUNTER → 2024-02-24 13:58 | Outpatient (BNVA) | payer MEDICARE, OTHER, SELFPAY | PROVIDERS: PCP Family Medicine; Visit Provider Podiatrist Foot & Ankle Surgery | DX: L60.0 Ingrowing nail (principal); L60.3 Nail dystrophy; G62.9 Polyneuropathy, unspecified; E11.65 Type 2 diabetes mellitus with hyperglycemia; E11.42 Type 2 diabetes mellitus with diabetic polyneuropathy | CPT/HCPCS: 11721; 99203 ==

== ENCOUNTER → 2024-03-01 09:35 | Outpatient (BNVA) | payer MEDICARE, OTHER, SELFPAY | PROVIDERS: PCP Family Medicine | DX: R39.9 Unspecified symptoms and signs involving the genitourinary system (principal) | CPT/HCPCS: 81000; 87077; 87086; 87184 ==

== ENCOUNTER → 2024-03-05 19:10 | Outpatient (BNVA) | payer MEDICARE, OTHER, SELFPAY | PROVIDERS: PCP Family Medicine | DX: R35.0 Frequency of micturition (principal) | CPT/HCPCS: 81000; 87086 ==

== ENCOUNTER → 2024-03-12 09:12 | Outpatient (BNVA) | payer MEDICARE, OTHER, SELFPAY | PROVIDERS: PCP Family Medicine; Visit Provider Internal Medicine | DX: I48.91 Unspecified atrial fibrillation (principal) | CPT/HCPCS: 85610 ==

== ENCOUNTER 2024-03-23 12:10 | Outpatient (CLI) | payer MEDICARE, OTHER, SELFPAY ==
[2024-03-23 13:28] LABS: Free T4 Free Thyroxine 1.83 ng/dL (0.82-1.77); Thyroid Stimulating Hormone 1.81 uIU/mL (0.27-4.20)
[2024-03-24 08:53] LABS: T3 Total 97 ng/dL (76-181)
== END 2024-03-23 12:11 | disposition home or self-care (01) ==
LOC: LAB 12:11
PROVIDERS: PCP Family Medicine; Visit Provider Internal Medicine
DX: I48.91 Unspecified atrial fibrillation (principal); E05.90 Thyrotoxicosis, unspecified without thyrotoxic crisis or storm
CPT/HCPCS: 84439; 84443; 84480

== ENCOUNTER 2024-03-30 09:28 | Outpatient (CLI) | payer MEDICARE, OTHER, SELFPAY ==
[2024-03-30 10:30] LABS: Free T4 Free Thyroxine 1.75 ng/dL (0.82-1.77); Thyroid Stimulating Hormone 2.25 uIU/mL (0.27-4.20)
[2024-03-31 08:10] LABS: T3 Total 113 ng/dL (76-181)
== END 2024-03-30 09:29 | disposition home or self-care (01) ==
LOC: LAB 09:29
PROVIDERS: PCP Family Medicine; Visit Provider Internal Medicine
DX: E05.90 Thyrotoxicosis, unspecified without thyrotoxic crisis or storm (principal); I48.91 Unspecified atrial fibrillation; E04.9 Nontoxic goiter, unspecified; I48.0 Paroxysmal atrial fibrillation
CPT/HCPCS: 84439; 84443; 84480; 99214

== ENCOUNTER 2024-04-09 06:00 | Outpatient (CLI) | payer MEDICARE, OTHER, SELFPAY | END 2024-04-09 06:01 | disposition home or self-care (01) | LOC: RAD 04-24 16:09 | PROVIDERS: PCP Family Medicine; Visit Provider Specialist | DX: I48.91 Unspecified atrial fibrillation (principal) | CPT/HCPCS: 85610 ==

== ENCOUNTER → 2024-04-26 14:41 | Outpatient (BNVA) | payer MEDICARE, OTHER, SELFPAY | PROVIDERS: PCP Family Medicine; Visit Provider Podiatrist Foot & Ankle Surgery | DX: L60.3 Nail dystrophy (principal); L60.0 Ingrowing nail; G62.9 Polyneuropathy, unspecified; E11.65 Type 2 diabetes mellitus with hyperglycemia; Z79.84 Long term (current) use of oral hypoglycemic drugs | CPT/HCPCS: 11721 ==

== ENCOUNTER 2024-05-01 09:31 | Outpatient (CLI) | payer MEDICARE, OTHER, SELFPAY ==
--- NOTE | 2024-05-01 09:37 | CT_ITS ---
WS: [id number] CT SINUSES TECHNIQUE: Noncontrast CT of the paranasal sinuses with coronal and sagittal reformatted images. CLINICAL INFORMATION: NASAL CONGESTION/OTHER ALLERGIC RHINITIS COMPARISON: None. DLP: 400.[address] scans at [facility] use at least one of these dose optimization techniques: automated e xposure control; mA and/or kV adjustment per patient size (includes targeted exams where dose is matc hed to clinical indication); or iterative reconstruction. FINDINGS: RIGHT to LEFT nasal septal deviation measuring 7 mm. Polypoid mucosal thickening in the paranasal sin uses. Opacification of the ostiomeatal units bilaterally. Polypoid mucosal thickening involves the na sarah turbinates. Large polyp involving the RIGHT nasal cavity measuring 3.1 x 0.6 cm. Opacification of the RIGHT frontal ethmoidal recess. Opacification of the RIGHT sphenoid sinus and RIGHT sphenoid sinus ostia. Cavernous carotid calcific ation. Mastoid air cells are well aerated. Normal posterior nasopharynx. Inspissated secretions in th e RIGHT inferior maxillary sinus. Accessory bilateral maxillary sinus ostia. CT/CT sinus wo con* [id number] IMPRESSION: 1. RIGHT to LEFT nasal deviation measuring 7 mm. 2. Polypoid mucosal thickening within the paranasal sinuses. 3. Large polyp in the RIGHT anterior nasal cavity measuring 3.1 x 0.6 cm. 4. Inspissated secretions in the RIGHT inferior maxillary sinus. 5. Opacification of the ostiomeatal units bilaterally. 6. Bilateral accessory sinus ostia. 7. Opacification RIGHT sphenoid sinus and sphenoid sinus ostia.
== END 2024-05-01 09:32 | disposition home or self-care (01) ==
PROVIDERS: PCP Family Medicine; Visit Provider Specialist
DX: J34.2 Deviated nasal septum (principal); J33.0 Polyp of nasal cavity; R93.89 Abnormal findings on diagnostic imaging of other specified body structures
CPT/HCPCS: 70486

== ENCOUNTER → 2024-05-07 09:48 | Outpatient (BNVA) | payer MEDICARE, OTHER, SELFPAY | PROVIDERS: PCP Family Medicine; Visit Provider Internal Medicine | DX: I48.91 Unspecified atrial fibrillation (principal) | CPT/HCPCS: 85610 ==

== ENCOUNTER → 2024-05-14 09:13 | Outpatient (BNVA) | payer MEDICARE, OTHER, SELFPAY | PROVIDERS: PCP Family Medicine; Visit Provider Internal Medicine | DX: I48.91 Unspecified atrial fibrillation (principal) | CPT/HCPCS: 85610 ==

== ENCOUNTER → 2024-05-28 09:07 | Outpatient (BNVA) | payer MEDICARE, OTHER, SELFPAY | PROVIDERS: PCP Family Medicine; Visit Provider Internal Medicine | DX: I48.91 Unspecified atrial fibrillation (principal) | CPT/HCPCS: 85610 ==

== ENCOUNTER → 2024-06-13 12:30 | Outpatient (BNVA) | payer MEDICARE, OTHER, SELFPAY | PROVIDERS: PCP Family Medicine | DX: R39.9 Unspecified symptoms and signs involving the genitourinary system (principal) | CPT/HCPCS: 81000 ==

== ENCOUNTER → 2024-06-25 09:38 | Outpatient (BNVA) | payer MEDICARE, OTHER, SELFPAY | PROVIDERS: PCP Family Medicine; Visit Provider Internal Medicine | DX: I48.91 Unspecified atrial fibrillation (principal) | CPT/HCPCS: 85610 ==

== ENCOUNTER → 2024-06-30 13:27 | Outpatient (BNVA) | payer MEDICARE, OTHER, SELFPAY | PROVIDERS: PCP Family Medicine; Visit Provider Emergency Medicine | DX: R39.9 Unspecified symptoms and signs involving the genitourinary system (principal) | CPT/HCPCS: 81000; 87077; 87086; 87184 ==

== ENCOUNTER → 2024-07-06 09:18 | Outpatient (BNVA) | payer MEDICARE, OTHER, SELFPAY | PROVIDERS: PCP Family Medicine; Visit Provider Podiatrist Foot & Ankle Surgery | DX: L60.3 Nail dystrophy (principal); L60.0 Ingrowing nail; G62.9 Polyneuropathy, unspecified; E11.65 Type 2 diabetes mellitus with hyperglycemia; Z79.84 Long term (current) use of oral hypoglycemic drugs | CPT/HCPCS: 11721 ==

== ENCOUNTER 2024-07-20 11:07 | Outpatient (CLI) | payer MEDICARE, OTHER, SELFPAY ==
--- NOTE | 2024-07-20 11:11 | US_ITS ---
WS: [id number] TESTICULAR ULTRASOUND HISTORY: TESTICULAR ATROPHY COMPARISON: 06/24/2023, 02/06/2024 TECHNIQUE: Real-time and color Doppler imaging or utilized to perform a testicular ultrasound. Right testicle: 1.3 cm x 1.0 cm x 0.9 cm. Testicle is identified on today's exam and small caliber. There is a small amount of Doppler present within the testicle. There is an additional previously jennie cribed heterogeneous mass in the RIGHT scrotum. This mass is separate from the testicle may be combin ation of hernia with dilated pampiniform plexus. No significant hydrocele. Mild scrotal wall thickening, RIGHT greater than LEFT. Right epididymis: Not definitely seen. Left testicle: 3.2 cm x 2.3 cm x 2.0 cm. Normal size and echogenicity. No mass or torsion. Scattered punctate calcifications. Normal color Doppler is present throughout. Systolic and diastolic velocities are both present. No significant hydrocele. Mild scrotal wall thickening. Left epididymis: Normal epididymis with no increased vascularity. LEFT varicocele. US/US scrotum [id number] IMPRESSION: 1. Markedly atrophic RIGHT testicle. 2. Normal size LEFT testicle with microlithiasis. 3. Heterogeneous mass in the RIGHT scrotum has been previously described. This may be a combination of varicocele and scrotal hernia. Urology consultation mishra s been previously recommended. 4. LEFT varicocele.
== END 2024-07-20 11:08 | disposition home or self-care (01) ==
LOC: RAD 11:07
PROVIDERS: PCP Family Medicine; Visit Provider Urology
DX: D29.21 Benign neoplasm of right testis (principal); N49.2 Inflammatory disorders of scrotum; I86.1 Scrotal varices; N50.0 Atrophy of testis
CPT/HCPCS: 76870

== ENCOUNTER → 2024-07-27 10:00 | Outpatient (BNVA) | payer MEDICARE, OTHER, SELFPAY | PROVIDERS: PCP Family Medicine | DX: Z53.9 Procedure and treatment not carried out, unspecified reason (principal) | CPT/HCPCS: 93793 ==

== ENCOUNTER → 2024-08-31 11:52 | Outpatient (BNVA) | payer MEDICARE, OTHER, SELFPAY | PROVIDERS: PCP Family Medicine | DX: I48.91 Unspecified atrial fibrillation (principal) | CPT/HCPCS: 85610 ==

== ENCOUNTER → 2024-09-06 09:43 | Outpatient (BNVA) | payer MEDICARE, OTHER, SELFPAY | PROVIDERS: PCP Family Medicine; Visit Provider Internal Medicine | DX: I48.91 Unspecified atrial fibrillation (principal); R39.9 Unspecified symptoms and signs involving the genitourinary system | CPT/HCPCS: 81000; 85610; 87086 ==

== ENCOUNTER → 2024-09-18 13:30 | Outpatient (BNVA) | payer MEDICARE, OTHER, SELFPAY | PROVIDERS: PCP Family Medicine; Visit Provider Internal Medicine | DX: I25.10 Atherosclerotic heart disease of native coronary artery without angina pectoris (principal); I48.91 Unspecified atrial fibrillation; I10 Essential (primary) hypertension; I48.0 Paroxysmal atrial fibrillation; E05.90 Thyrotoxicosis, unspecified without thyrotoxic crisis or storm; Z79.01 Long term (current) use of anticoagulants | CPT/HCPCS: 36415; 80048; 83880; 84439; 84443; 84480; 99214 ==

== ENCOUNTER → 2024-09-24 10:32 | Outpatient (BNVA) | payer MEDICARE, OTHER, SELFPAY | PROVIDERS: PCP Family Medicine; Visit Provider Internal Medicine | DX: I48.91 Unspecified atrial fibrillation (principal) | CPT/HCPCS: 85610 ==

== ENCOUNTER → 2024-09-27 08:35 | Outpatient (BNVA) | payer MEDICARE, OTHER, SELFPAY | PROVIDERS: PCP Family Medicine; Visit Provider Internal Medicine | DX: I10 Essential (primary) hypertension (principal); E05.90 Thyrotoxicosis, unspecified without thyrotoxic crisis or storm; E04.9 Nontoxic goiter, unspecified; I48.0 Paroxysmal atrial fibrillation | CPT/HCPCS: 99214 ==

== ENCOUNTER → 2024-10-08 11:56 | Outpatient (BNVA) | payer MEDICARE, OTHER, SELFPAY | PROVIDERS: PCP Family Medicine; Visit Provider Internal Medicine | DX: I48.91 Unspecified atrial fibrillation (principal) | CPT/HCPCS: 85610 ==

== ENCOUNTER 2024-10-10 11:01 | Outpatient (CLI) | payer MEDICARE, OTHER, SELFPAY ==
[2024-10-10 13:33] LABS: Anion Gap 15.4 (5-19); Blood Urea Nitrogen 27 mg/dL (8-23); Calcium 9.5 mg/dL (8.5-10.5); Carbon Dioxide 29 mmol/L (22-29); Chloride 101 mmol/L (98-107); Glucose 245 mg/dL (65-115); NT Pro B Type Natriuretic Pept 80 pg/mL (0-450); Osmolality Calculated 307 mOsm/kg (285-295); Potassium 3.4 mmol/L (3.5-5.1); Sodium 142 mmol/L (136-145)
== END 2024-10-10 11:02 | disposition home or self-care (01) ==
LOC: LAB 11:07
PROVIDERS: Internal Medicine Cardiovascular Disease; PCP Family Medicine; Visit Provider Internal Medicine Rheumatology
DX: I25.10 Atherosclerotic heart disease of native coronary artery without angina pectoris (principal); I10 Essential (primary) hypertension; I50.9 Heart failure, unspecified
CPT/HCPCS: 36415; 80048; 83880

== ENCOUNTER → 2024-10-17 13:26 | Outpatient (BNVA) | payer MEDICARE, OTHER, SELFPAY | PROVIDERS: PCP Family Medicine | DX: R39.9 Unspecified symptoms and signs involving the genitourinary system (principal) | CPT/HCPCS: 81000; 87086 ==

== ENCOUNTER 2024-10-19 12:32 | Outpatient (CLI) | payer MEDICARE, OTHER, SELFPAY ==
--- NOTE | 2024-10-19 12:45 | USCV_ITS ---
Mac Pacheco Age: 74 Gender: M : 1950 Exam Date: 10/19/2024 13:09 Ordering Phys: Kavon Gao M.D ([email or web address]) Technologist: [email or web address] Exam Location: [facility] [place] Indication: chest pain, sob BP: 138 / 84 HR: 57 Rhythm: Sinus Technical Quality: Adequate MEASUREMENTS (Male / Female) Normal Values 2D ECHO LV Diastolic Diameter PLAX 4.3 cm 4.2 - 5.9 / 3.9 - 5.3 cm IVS Diastolic Thickness 1.1 cm 0.6 - 1.0 / 0.6 - 0.9 cm IVS Systolic Thickness 1.6 cm LVPW Diastolic Thickness 1.6 cm 0.6 - 1.0 / 0.6 - 0.9 cm LVPW Systolic Thickness 2.0 cm LVOT Diameter 2.0 cm LV Ejection Fraction 2D Teich 69.4 % LV Ejection Fraction MOD 4C 79.1 % LV Ejection Fraction MOD 2C 66.9 % LV Ejection Fraction 2C AL 68.6 % LA Diameter 3.4 cm RA Systolic Volume 4C AL 41.9 ml RA Systolic Volume 4C MOD 41.8 ml LA Sys Volume AL 49.8 cm cubed LA Sys Volume Index AL 21.2 cm cubed/m squared Aorta at Sinotubular Diameter 2.4 cm IVC Diameter 1.7 cm M-MODE LA Ao Ratio MM 1.5 AV Cusp Separation MM 1.8 cm DOPPLER AV Peak Velocity 147.3 cm/s LVOT Peak Velocity 81.0 cm/s AV Area Cont Eq vti 2.1 cm squared AV Area Cont Eq pk 1.7 cm squared MV Peak Velocity 152.0 cm/s MV Area PHT 3.4 cm squared Mitral E to A Ratio 1.1 TR Peak Velocity 345.0 cm/s TR Peak Gradient 47.6 mmHg TR Mean Velocity 282.0 cm/s TR Mean Gradient 33.0 mmHg TR Velocity Time Integral 110.1 cm PV Peak Velocity 134.0 cm/s RV Ejection Time 0.3 s FINDINGS Left Ventricle Left ventricle is normal in size. LV systolic function is normal with EF of 55-60%. No regional wall motion abnormalities. Right Ventricle Normal in size and function Right Atrium Normal in size Left Atrium Normal in size Mitral Valve Mild mitral annular calcification. Mild mitral regurgitation Aortic Valve Aortic valve is thickened. No significant stenosis. Tricuspid Valve Mild tricuspid regurgitation. Insufficient TR jet to calcaulate RVSP Pulmonic Valve Trace pulmonic regurgitation. Pericardium Normal Aorta Normal in size IVC Appears to be normal CONCLUSIONS LV systolic function is normal with EF of 55-60% Mild mitral regurgitation Mild tricuspid regurgitation Trace pulmonic regurgitation. Compared to prior echocardiogram from 2022, no significant changes are seen Kavon Gao MD (Electronically Signed) Final Date: 30 October 2024 22:41 S
== END 2024-10-19 12:33 | disposition home or self-care (01) ==
PROVIDERS: PCP Family Medicine; Visit Provider Internal Medicine
DX: I48.91 Unspecified atrial fibrillation (principal); I48.0 Paroxysmal atrial fibrillation; I10 Essential (primary) hypertension; I34.81 Nonrheumatic mitral (valve) annulus calcification; I34.0 Nonrheumatic mitral (valve) insufficiency; I35.8 Other nonrheumatic aortic valve disorders; I07.1 Rheumatic tricuspid insufficiency
CPT/HCPCS: 93306

== ENCOUNTER → 2024-11-05 10:22 | Outpatient (BNVA) | payer MEDICARE, OTHER, SELFPAY | PROVIDERS: PCP Family Medicine; Visit Provider Internal Medicine | DX: I48.91 Unspecified atrial fibrillation (principal) | CPT/HCPCS: 85610 ==

== ENCOUNTER → 2024-11-06 09:19 | Outpatient (BNVA) | payer MEDICARE, OTHER, SELFPAY | PROVIDERS: PCP Family Medicine; Visit Provider Podiatrist Foot & Ankle Surgery | DX: E11.65 Type 2 diabetes mellitus with hyperglycemia (principal); L60.3 Nail dystrophy; G62.9 Polyneuropathy, unspecified; Z79.84 Long term (current) use of oral hypoglycemic drugs | CPT/HCPCS: 11721 ==

== ENCOUNTER → 2024-12-10 10:11 | Outpatient (BNVA) | payer MEDICARE, OTHER, SELFPAY | PROVIDERS: PCP Family Medicine | DX: I48.91 Unspecified atrial fibrillation (principal) | CPT/HCPCS: 85610 ==

== ENCOUNTER → 2024-12-15 11:26 | Outpatient (BNVA) | payer MEDICARE, OTHER, SELFPAY | PROVIDERS: PCP Family Medicine; Visit Provider Nurse Practitioner | DX: R39.9 Unspecified symptoms and signs involving the genitourinary system (principal) | CPT/HCPCS: 81000 ==

== ENCOUNTER → 2024-12-24 12:44 | Outpatient (BNVA) | payer MEDICARE, OTHER, SELFPAY | PROVIDERS: PCP Family Medicine; Visit Provider Family Medicine | DX: I10 Essential (primary) hypertension (principal); I25.10 Atherosclerotic heart disease of native coronary artery without angina pectoris; I48.0 Paroxysmal atrial fibrillation; E11.65 Type 2 diabetes mellitus with hyperglycemia; E05.90 Thyrotoxicosis, unspecified without thyrotoxic crisis or storm; N40.0 Benign prostatic hyperplasia without lower urinary tract symptoms; R29.898 Other symptoms and signs involving the musculoskeletal system; E03.9 Hypothyroidism, unspecified | CPT/HCPCS: 80053; 80061; 82607; 83036; 84443; 85025 ==

== ENCOUNTER → 2025-01-07 11:01 | Outpatient (BNVA) | payer MEDICARE, OTHER, SELFPAY | PROVIDERS: PCP Family Medicine; Visit Provider Internal Medicine | DX: I48.91 Unspecified atrial fibrillation (principal) | CPT/HCPCS: 85610 ==

== ENCOUNTER → 2025-02-02 11:02 | Outpatient (BNVA) | payer MEDICARE, OTHER, SELFPAY | PROVIDERS: PCP Family Medicine; Visit Provider Family Medicine | DX: N39.0 Urinary tract infection, site not specified (principal) | CPT/HCPCS: 81000 ==

== ENCOUNTER → 2025-02-04 10:25 | Outpatient (BNVA) | payer MEDICARE, OTHER, SELFPAY | PROVIDERS: PCP Family Medicine; Visit Provider Internal Medicine | DX: I48.91 Unspecified atrial fibrillation (principal) | CPT/HCPCS: 85610 ==

== ENCOUNTER → 2025-02-05 11:11 | Outpatient (BNVA) | payer MEDICARE, OTHER, SELFPAY | PROVIDERS: PCP Family Medicine; Visit Provider Podiatrist Foot & Ankle Surgery | DX: E11.65 Type 2 diabetes mellitus with hyperglycemia (principal); L60.3 Nail dystrophy; G62.9 Polyneuropathy, unspecified; Z79.84 Long term (current) use of oral hypoglycemic drugs | CPT/HCPCS: 11721 ==

== ENCOUNTER → 2025-03-11 10:43 | Outpatient (BNVA) | payer MEDICARE, OTHER, SELFPAY | PROVIDERS: PCP Family Medicine; Visit Provider Internal Medicine | DX: I48.91 Unspecified atrial fibrillation (principal) | CPT/HCPCS: 85610 ==

== ENCOUNTER → 2025-03-19 13:23 | Outpatient (BNVA) | payer MEDICARE, OTHER, SELFPAY | PROVIDERS: PCP Family Medicine; Visit Provider Internal Medicine | DX: I25.10 Atherosclerotic heart disease of native coronary artery without angina pectoris (principal); I10 Essential (primary) hypertension; I48.0 Paroxysmal atrial fibrillation; Z79.01 Long term (current) use of anticoagulants; Z98.61 Coronary angioplasty status; Z86.73 Personal history of transient ischemic attack (TIA), and cerebral infarction without residual deficits; Z87.891 Personal history of nicotine dependence | CPT/HCPCS: 99214 ==

== ENCOUNTER → 2025-03-21 10:50 | Outpatient (BNVA) | payer MEDICARE, OTHER, SELFPAY | PROVIDERS: PCP Family Medicine; Visit Provider Internal Medicine | DX: I48.91 Unspecified atrial fibrillation (principal) | CPT/HCPCS: 36415; 85610 ==

== ENCOUNTER → 2025-03-28 09:34 | Outpatient (BNVA) | payer MEDICARE, OTHER, SELFPAY | PROVIDERS: PCP Family Medicine; Visit Provider Internal Medicine | DX: I10 Essential (primary) hypertension (principal); E05.90 Thyrotoxicosis, unspecified without thyrotoxic crisis or storm; I48.91 Unspecified atrial fibrillation | CPT/HCPCS: 36415; 84439; 84443; 84480; 85610 ==

== ENCOUNTER → 2025-04-03 10:22 | Outpatient (BNVA) | payer MEDICARE, OTHER, SELFPAY | PROVIDERS: PCP Family Medicine; Visit Provider Podiatrist Foot & Ankle Surgery | DX: E11.8 Type 2 diabetes mellitus with unspecified complications (principal); L60.3 Nail dystrophy; G62.9 Polyneuropathy, unspecified; E11.65 Type 2 diabetes mellitus with hyperglycemia; Z79.84 Long term (current) use of oral hypoglycemic drugs | CPT/HCPCS: 11721 ==

== ENCOUNTER 2025-04-04 09:59 | Outpatient (CLI) | payer MEDICARE, OTHER, SELFPAY ==
[2025-04-04 11:44] LABS: Free T4 Free Thyroxine 1.82 ng/dL (0.82-1.77)
== END 2025-04-04 10:00 | disposition home or self-care (01) ==
LOC: LAB 10:01
PROVIDERS: PCP Family Medicine; Visit Provider Internal Medicine
DX: I48.91 Unspecified atrial fibrillation (principal)
CPT/HCPCS: 36415; 84439; 85610

== ENCOUNTER → 2025-04-15 10:00 | Outpatient (BNVA) | payer MEDICARE, OTHER, SELFPAY | PROVIDERS: PCP Family Medicine; Visit Provider Internal Medicine | DX: I48.91 Unspecified atrial fibrillation (principal) | CPT/HCPCS: 85610 ==

== ENCOUNTER → 2025-04-25 10:40 | Outpatient (BNVA) | payer MEDICARE, OTHER, SELFPAY | PROVIDERS: PCP Family Medicine; Visit Provider Internal Medicine | DX: I48.91 Unspecified atrial fibrillation (principal) | CPT/HCPCS: 85610 ==

== ENCOUNTER → 2025-05-02 10:28 | Outpatient (BNVA) | payer MEDICARE, OTHER, SELFPAY | PROVIDERS: PCP Family Medicine; Visit Provider Internal Medicine | DX: I48.91 Unspecified atrial fibrillation (principal) | CPT/HCPCS: 85610 ==

== ENCOUNTER → 2025-05-13 10:17 | Outpatient (BNVA) | payer MEDICARE, OTHER, SELFPAY | PROVIDERS: PCP Family Medicine; Visit Provider Internal Medicine | DX: I48.91 Unspecified atrial fibrillation (principal) | CPT/HCPCS: 85610 ==

== ENCOUNTER 2025-05-31 09:57 | Outpatient (CLI) | payer MEDICARE, OTHER, SELFPAY ==
[2025-05-31 11:36] LABS: Free T4 Free Thyroxine 1.77 ng/dL (0.82-1.77); Thyroid Stimulating Hormone 3.15 uIU/mL (0.27-4.20)
== END 2025-05-31 09:58 | disposition home or self-care (01) ==
LOC: LAB 09:59
PROVIDERS: PCP Family Medicine; Visit Provider Internal Medicine
DX: E05.90 Thyrotoxicosis, unspecified without thyrotoxic crisis or storm (principal); I48.91 Unspecified atrial fibrillation
CPT/HCPCS: 36415; 84439; 84443; 84480

== ENCOUNTER → 2025-06-10 11:14 | Outpatient (BNVA) | payer MEDICARE, OTHER, SELFPAY | PROVIDERS: PCP Family Medicine; Visit Provider Internal Medicine | DX: I48.91 Unspecified atrial fibrillation (principal) | CPT/HCPCS: 36415; 85610 ==

== ENCOUNTER → 2025-06-13 10:21 | Outpatient (BNVA) | payer MEDICARE, OTHER, SELFPAY | PROVIDERS: PCP Family Medicine; Visit Provider Internal Medicine | DX: I48.91 Unspecified atrial fibrillation (principal) | CPT/HCPCS: 85610 ==

== ENCOUNTER → 2025-06-25 09:43 | Outpatient (BNVA) | payer MEDICARE, OTHER, SELFPAY | PROVIDERS: PCP Family Medicine; Visit Provider Internal Medicine | DX: I48.91 Unspecified atrial fibrillation (principal) | CPT/HCPCS: 85610 ==